=== PATIENT | female | born 2000 | race Caucasian/White ===

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

== ENCOUNTER → 2018-02-09 10:22 | Outpatient (CLI) | payer BC, SELFPAY ==
[2018-02-10 18:39] LABS: HIV Screen 4th Generation wRfx Non Reactive (Non Reactive); Hepatitis C Antibody <0.1 s/co ratio (0.0-0.9); Rapid Plasma Reagin Ab Titer Non Reactive (NonRea<1:1)
== END ==
PROVIDERS: PCP Family Medicine; Visit Provider Obstetrics & Gynecology
DX: Z11.3 Encounter for screening for infections with a predominantly sexual mode of transmission (principal)
CPT/HCPCS: 36415; 86592; 86703; 87380; G0432

== ENCOUNTER → 2019-09-04 16:09 | Outpatient (CLI) | payer BC, SELFPAY ==
[2019-09-06 13:40] LABS: Covid-19 Nasal PCR Sendout Lex NOT DETECTED
== END ==
PROVIDERS: Visit Provider Family Medicine
DX: Z03.818 Encounter for observation for suspected exposure to other biological agents ruled out (principal)
CPT/HCPCS: U0004

== ENCOUNTER → 2019-09-26 13:44 | Outpatient (CLI) | payer BC, SELFPAY | PROVIDERS: PCP Family Medicine; Visit Provider Nurse Practitioner | DX: G47.33 Obstructive sleep apnea (adult) (pediatric) (principal); R40.0 Somnolence; R06.83 Snoring; E66.9 Obesity, unspecified | CPT/HCPCS: G0399 ==

== ENCOUNTER → 2019-11-21 17:31 | Outpatient (CLI) | payer BC, SELFPAY ==
[2019-11-26 15:20] LABS: Neisseria gonorrhoeae, NAA Negative (Negative)
== END ==
PROVIDERS: Visit Provider Obstetrics & Gynecology
DX: N89.8 Other specified noninflammatory disorders of vagina (principal); N76.0 Acute vaginitis; B96.89 Other specified bacterial agents as the cause of diseases classified elsewhere; Z11.3 Encounter for screening for infections with a predominantly sexual mode of transmission
CPT/HCPCS: 87491; 87591

== ENCOUNTER 2021-04-08 14:52 | Outpatient (RCR) | payer BC, SELFPAY | END 2021-04-08 14:55 | disposition home or self-care (01) | LOC: PT 14:52 | PROVIDERS: Visit Provider Internal Medicine Cardiovascular Disease | DX: I21.4 Non-ST elevation (NSTEMI) myocardial infarction (principal) | CPT/HCPCS: 93798 ==

== ENCOUNTER 2021-12-12 20:19 | Emergency (ER) | payer BC, SELFPAY ==
[2021-12-12 20:20] VITALS: BP 121/68; PULSE 76; RESP 18; TEMP 36.9; O2SAT 99; BMI 64.1
--- NOTE | 2021-12-12 21:47 | XR_ITS ---
PROCEDURE INFORMATION: Exam: XR Chest Exam date and time: 12/12/2021 9:47 PM Age: 21 years old Clinical indication: Cough; Additional info: Congestion TECHNIQUE: Imaging protocol: Radiologic exam of the chest. Views: 2 views. COMPARISON: No relevant prior studies available. FINDINGS: Lungs: No consolidation. Pleural spaces: No pneumothorax. Heart/Mediastinum: Heart appears enlarged with upturned apex. Bones/joints: No acute fracture. IMPRESSION: Heart appears enlarged with upturned apex which may be projectional however can be seen with congenital cardiac anomalies. Cardiology consultation may be warranted for further evaluation.
[2021-12-12 21:50] LABS: Coronavirus 19, PCR Not Detected (NotDetected); Influenza A, PCR Not Detected (NotDetected); Influenza B, PCR Not Detected (NotDetected)
--- NOTE | 2021-12-12 22:42 | HMH.EDURI ---
Discharge Plan Disposition Patient Disposition: Home, Self-Care Prescriptions Prescriptions: New azithromycin [azithromycin] 250 mg tablet 250 mg PO DIRECTED Qty: 6 0RF Rx Instructions: Take two (2) tablets on day #1, then one (1) tablet day #2 thru #5 prednisone [prednisone] 20 mg tablet 20 mg PO BID Qty: 10 0RF No Action escitalopram oxalate 20 mg tablet 20 mg PO DAILY metoprolol tartrate 100 mg tablet 100 mg PO DAILY Label Comments: TAKE 1 & 1 2 (ONE & ONE HALF) TABLETS BY MOUTH TWICE DAILY losartan 50 mg tablet 50 mg PO DAILY flecainide 150 mg tablet 150 mg PO Q12H Rexulti 0.5 mg tablet 0.5 mg PO DAILY furosemide [Lasix] 40 mg tablet 40 mg PO DAILY PRN medroxyprogesterone [Depo-Provera] 150 mg/mL suspension 150 mg IM [id number] Qty: 1 4RF Referrals Follow up/Referrals: Faith Reed APRN [Primary Care Provider] - See instructions Clinical Impressions Clinical Impression: Transposition of great vessels, Bronchitis Instructions Patient Instructions: DI for Acute Bronchitis Discharge ED Provider: Marshal Ornelas URI/Sore Throat HPI General Chief Complaint: Upper Respiratory Infection Stated Complaint: cough,bernabe, RUSHING Time Seen by Provider: 12/12/21 22:42 Mode of Arrival: Ambulatory Source of Information: Patient and Medical Record Limitations: No Limitations Description of Symptoms (Recalled from ER Triage Doc. by RN): pt c/o cough,congestion x 1 week History of Present Illness HPI Narrative: uri sx and cough over the last week - has hx of transposition of great vessels Complaint: cough and nasal congestion Onset (ago): day(s) Duration: intermittent Severity: moderate Associated symptoms: denies other symptoms Related Data Home Medications Medication Instructions Recorded Confirmed escitalopram oxalate 20 mg tablet 20 mg PO DAILY 11/21/19 08/12/21 brexpiprazole 0.5 mg tablet 0.5 mg PO DAILY 08/12/21 08/12/21 (Rexulti) flecainide 150 mg tablet 150 mg PO Q12H 08/12/21 08/12/21 furosemide 40 mg tablet (Lasix) 40 mg PO DAILY PRN 08/12/21 08/12/21 losartan 50 mg tablet 50 mg PO DAILY 08/12/21 08/12/21 metoprolol tartrate 100 mg tablet 100 mg PO DAILY 08/12/21 08/12/21 Previous Rx's Medication Instructions Recorded medroxyprogesterone 150 mg/mL 150 mg IM [id number] #1 mL 08/12/21 intramuscular suspension (Depo-Provera) azithromycin 250 mg tablet 250 mg PO DIRECTED #6 tabs 12/12/21 prednisone 20 mg tablet 20 mg PO BID #10 tabs 12/12/21 Allergies Allergy/AdvReac Type Severity Reaction Status Date / Time lisinopril Allergy Mild Cough Verified 08/12/21 13:44 methocarbamol [From Robaxin] Allergy Verified 08/12/21 13:44 Cefprozil Allergy Mild Rash Uncoded 08/12/21 13:44 Cephalosporin Allergy Unknown Uncoded 08/12/21 13:44 PFSH PFSH Social History Smoking Status: Never smoker alcohol intake: never substance use type: denies use current occupational status: unemployed Travel in the last 8 weeks: None housing: house caffeine: No ROS Obtained: Yes All systems reviewed & no additional complaints except as documented Physical Exam General General appearance: alert and obese Head Head exam: normocephalic Eye Eye exam: Present PERRL and EOMI ENT ENT exam: Present normal oropharynx, mucous membranes moist and TM's normal bilaterally Neck Neck exam: Present full ROM; Absent trachea midline Respiratory Respiratory exam: Present normal lung sounds bilaterally; Absent respiratory distress Cardiovascular Cardiovascular exam: Present regular rate and systolic murmur Abdominal Exam Abdominal exam: Present soft Extremities Exam Extremities exam: Absent edema or calf tenderness Neurological Exam Neurological exam: Present alert and CN II-XII intact Psychiatric Psychiatric exam: Present normal affect Skin Skin exam: Absent rash Medical Decision Making Medical Records Medical r
[2021-12-12 22:58] VITALS: BP 115/74; PULSE 71; RESP 18; TEMP 36.9; O2SAT 99
== END 2021-12-12 23:01 | disposition home or self-care (01) ==
PROVIDERS: Emergency Provider Emergency Medicine; PCP Nurse Practitioner Family
DX: J06.9 Acute upper respiratory infection, unspecified (principal); R05.9 Cough, unspecified; R09.81 Nasal congestion; R51.9 Headache, unspecified; Z20.822 Contact with and (suspected) exposure to COVID-19; Z79.52 Long term (current) use of systemic steroids; Z79.899 Other long term (current) drug therapy; Z88.8 Allergy status to other drugs, medicaments and biological substances
CPT/HCPCS: 71046; 99283; C9803; U0003; U0005

== ENCOUNTER 2022-01-04 09:28 | Emergency (ER) | payer BC, SELFPAY ==
[2022-01-04 10:05] VITALS: BP 149/89; PULSE 78; RESP 19; TEMP 36.7; O2SAT 98; BMI 64.1
--- NOTE | 2022-01-04 10:32 | EXP.UTC ---
Discharge Plan Disposition Patient Disposition: Home, Self-Care Condition: Good Prescriptions Prescriptions: New doxycycline hyclate 100 mg capsule 100 mg PO DAILY Qty: 10 0RF prednisone 10 mg tablet 10 mg PO BID Qty: 10 0RF guaifenesin [Mucinex] 600 mg tablet extended release 12hr 600 mg PO BID PRN (Reason: cough) Qty: 20 0RF No Action escitalopram oxalate 20 mg tablet 20 mg PO DAILY metoprolol tartrate 100 mg tablet 100 mg PO DAILY Label Comments: TAKE 1 & 1 2 (ONE & ONE HALF) TABLETS BY MOUTH TWICE DAILY losartan 50 mg tablet 50 mg PO DAILY flecainide 150 mg tablet 150 mg PO Q12H Rexulti 0.5 mg tablet 0.5 mg PO DAILY furosemide [Lasix] 40 mg tablet 40 mg PO DAILY PRN medroxyprogesterone [Depo-Provera] 150 mg/mL suspension 150 mg IM [id number] Qty: 1 4RF azithromycin [azithromycin] 250 mg tablet 250 mg PO DIRECTED Qty: 6 0RF Rx Instructions: Take two (2) tablets on day #1, then one (1) tablet day #2 thru #5 prednisone [prednisone] 20 mg tablet 20 mg PO BID Qty: 10 0RF Referrals Follow up/Referrals: Cheyanne Whitmore MD [Primary Care Provider] - See instructions Activity Restrictions/Add. Instructions Additional Instructions/Restrictions: Start antibiotic today. Be sure to complete entire prescription even if feeling better Monitor temp. Tylenol every 4 hours as needed and / or ibuprofen every 6 hours as needed ( As long as your primary care physician has told you that it ok to take both. For fever/aches/pains ER if no less than 101 despite Tylenol or Motrin Humidifier/vaporizer or hot steamy shower Mucinex for your cough Be sure to drink lots of water. *Start steroid today. Helps with inflammation therefore, cough and wheezing. Follow directions on the package. Reviewed side effects. Patient reports taking them before. Follow up IMMEDIATELY for new or worsening of symptoms OR no noticeable improvement over the next 48-72 hours. 911 immediately for any life threatening symptoms such as chest pain or difficulty breathing Clinical Impressions Clinical Impression: Bronchitis, Sinusitis Instructions Patient Instructions: DI for Sinusitis, Sinusitis Discharge ED Provider: Kourtney Gregorio [facility] [place] General Stated complaint: Persistant congestion, cough, sore throat Mode of Arrival: Ambulatory Source of Information: Patient Limitations: No Limitations Time Seen by Provider: 01/04/22 10:32 Description of Symptoms (Recalled from Triage Doc. by RN): PATIENT C/O COUGH, CONGESTION, SINUS DRAINAGE, SORE THROAT X 1 WEEK. SHE REPORTS SHE WAS SEEN BY PCP LAST WEEK AND JUST FINISHED A STEROID PACK BUT IS NOT FEELING BETTER HEENT Symptoms (Recalled from RN notes): Yes Resp Symptoms (Recalled from RN notes): Yes Skin Symptoms (Recalled from RN notes): No MS Symptoms (Recalled from RN notes): No Functional Status (Recalled from RN notes): WNL History of Present Illness Provider Complaint: Patient states that she was seen a couple weeks ago and finished zpack and steriods but still not feeling any better States that she is having sinus pain and pressure, sore throat and chest congestion States today when she was still not feeling any better she came in to get checked out Related Data Home Medications Medication Instructions Recorded Confirmed escitalopram oxalate 20 mg tablet 20 mg PO DAILY 11/21/19 08/12/21 brexpiprazole 0.5 mg tablet 0.5 mg PO DAILY 08/12/21 08/12/21 (Rexulti) flecainide 150 mg tablet 150 mg PO Q12H 08/12/21 08/12/21 furosemide 40 mg tablet (Lasix) 40 mg PO DAILY PRN 08/12/21 08/12/21 losartan 50 mg tablet 50 mg PO DAILY 08/12/21 08/12/21 metoprolol tartrate 100 mg tablet 100 mg PO DAILY 08/12/21 08/12/21 Previous Rx's Medication Instructions Recorded medroxyprogesterone 150 mg/mL 150 mg IM [id number] #1 mL 08/12/21 intramuscular suspension ([employer]
[2022-01-04 10:40] VITALS: BP 149/89; PULSE 78; RESP 19; TEMP 36.7; O2SAT 98
== END 2022-01-04 10:45 | disposition home or self-care (01) ==
PROVIDERS: Emergency Provider Nurse Practitioner; PCP Family Medicine
DX: J02.9 Acute pharyngitis, unspecified (principal); R05.9 Cough, unspecified; I25.2 Old myocardial infarction; E07.9 Disorder of thyroid, unspecified; G43.909 Migraine, unspecified, not intractable, without status migrainosus; Z79.52 Long term (current) use of systemic steroids; Z79.899 Other long term (current) drug therapy; Z88.8 Allergy status to other drugs, medicaments and biological substances
CPT/HCPCS: 99212; G0463

== ENCOUNTER 2022-02-06 11:18 | Emergency (ER) | payer BC, SELFPAY ==
[2022-02-06 12:50] VITALS: BP 144/76; PULSE 77; RESP 19; TEMP 36.9; O2SAT 98; BMI 65.5
[2022-02-06 13:03] LABS: Coronavirus 19, PCR Not Detected (NotDetected); Influenza B, PCR Not Detected (NotDetected)
--- NOTE | 2022-02-06 13:06 | EXP.UTC ---
Discharge Plan Disposition Patient Disposition: Home, Self-Care Condition: Good Prescriptions Prescriptions: New prednisone [prednisone] 20 mg tablet 20 mg PO BID Qty: 10 0RF No Action escitalopram oxalate 20 mg tablet 20 mg PO DAILY metoprolol tartrate 100 mg tablet 100 mg PO DAILY Label Comments: TAKE 1 & 1 2 (ONE & ONE HALF) TABLETS BY MOUTH TWICE DAILY losartan 50 mg tablet 50 mg PO DAILY flecainide 150 mg tablet 150 mg PO Q12H Rexulti 0.5 mg tablet 0.5 mg PO DAILY furosemide [Lasix] 40 mg tablet 40 mg PO DAILY PRN medroxyprogesterone [Depo-Provera] 150 mg/mL suspension 150 mg IM [id number] Qty: 1 4RF doxycycline hyclate 100 mg capsule 100 mg PO DAILY Qty: 10 0RF prednisone 10 mg tablet 10 mg PO BID Qty: 10 0RF guaifenesin [Mucinex] 600 mg tablet extended release 12hr 600 mg PO BID PRN (Reason: cough) Qty: 20 0RF azithromycin [azithromycin] 250 mg tablet 250 mg PO DIRECTED Qty: 6 0RF Rx Instructions: Take two (2) tablets on day #1, then one (1) tablet day #2 thru #5 prednisone [prednisone] 20 mg tablet 20 mg PO BID Qty: 10 0RF Referrals Follow up/Referrals: Eladia Falk [Primary Care Provider] - See instructions Activity Restrictions/Add. Instructions Additional Instructions/Restrictions: covid/flu swab was sent to lab, call tomorrow for results. self isolate until test results are known to be negative No sign of a bacterial infection. Likely viral. Viruses can take 7-14 days to run their course. Nasal saline and bulb syringe or nose Elis to remove nasal drainage to help with nasal congestion. Hard to eat, drink, sleep with nasal congestion so important to keep this cleaned out. Monitor temp. Tylenol or Motrin as needed for pain or fever Encourage fluids, water, Gatorade, Powerade, Pedialyte if /toddler/child Warm salt water gargles Warm fluids Sore throat lozenges Sleep elevated Humidifier/vaporizer Follow-up immediately for new or worsening symptoms or no noticeable improvement over the next 48-72 hours. Clinical Impressions Clinical Impression: Bronchitis, Close exposure to COVID-19 virus Instructions Patient Instructions: DI for COVID-19 (Suspected or Confirmed ), Acute Bronchitis Discharge ED Provider: Blanca ([facility])[place] [facility] [place] General Stated complaint: Fever, cough, congestion, headache, SOA Time Seen by Provider: 02/06/22 13:06 HEENT Symptoms (Recalled from RN notes): Yes Resp Symptoms (Recalled from RN notes): Yes History of Present Illness Provider Complaint: 21 yr old female presents for soa,wheezing, clear congestion and sore throat. step father had covid 2 weeks ago Related Data Home Medications Medication Instructions Recorded Confirmed escitalopram oxalate 20 mg tablet 20 mg PO DAILY 11/21/19 08/12/21 brexpiprazole 0.5 mg tablet 0.5 mg PO DAILY 08/12/21 08/12/21 (Rexulti) flecainide 150 mg tablet 150 mg PO Q12H 08/12/21 08/12/21 furosemide 40 mg tablet (Lasix) 40 mg PO DAILY PRN 08/12/21 08/12/21 losartan 50 mg tablet 50 mg PO DAILY 08/12/21 08/12/21 metoprolol tartrate 100 mg tablet 100 mg PO DAILY 08/12/21 08/12/21 Previous Rx's Medication Instructions Recorded medroxyprogesterone 150 mg/mL 150 mg IM [id number] #1 mL 08/12/21 intramuscular suspension (Depo-Provera) azithromycin 250 mg tablet 250 mg PO DIRECTED #6 tabs 12/12/21 prednisone 20 mg tablet 20 mg PO BID #10 tabs 12/12/21 doxycycline hyclate 100 mg capsule 100 mg PO DAILY #10 caps 01/04/22 guaifenesin 600 mg tablet, 600 mg PO BID PRN cough #20 tabs 01/04/22 extended release 12 hr (Mucinex) prednisone 10 mg tablet 10 mg PO BID #10 tabs 01/04/22 prednisone 20 mg tablet 20 mg PO BID #10 tabs 02/06/22 Allergies Allergy/AdvReac Type Severity Reaction Status Date / Time lisinopril Allergy Mild Cough Verified 08/12/21 13:44 cefprozil [From Cefzil] Allergy Verified 01/04/22 10:30 [facility]
[2022-02-06 13:24] VITALS: BP 144/76; PULSE 77; RESP 19; TEMP 36.9; O2SAT 98
[2022-02-06 14:45] LABS: Influenza A, PCR Detected (NotDetected)
== END 2022-02-06 13:28 | disposition home or self-care (01) ==
PROVIDERS: Emergency Provider Nurse Practitioner Family; PCP Family Medicine Sports Medicine
DX: J10.1 Influenza due to other identified influenza virus with other respiratory manifestations (principal)
CPT/HCPCS: 99212; C9803; G0463; U0003; U0005

== ENCOUNTER 2022-06-16 03:05 | Emergency (ER) | payer BC, SELFPAY ==
[2022-06-16] VITALS (10 sets, daily range): BP systolic 132–150; BP diastolic 55–98; PULSE 74–102; RESP 14–20; TEMP 36.9–37; O2SAT 95–98; BMI 66.2
--- NOTE | 2022-06-16 02:51 | ECG_ITS ---
APPROVED REPORT Exam: Resting ECG HR:100 bpm ECG Measurements Heart Rate 100 AXES CA 124 P 66 QRSd 134 QRS 39 QT 379 T 149 QTc 436 Conclusion SINUS TACHYCARDIA VENTRICULAR PREEXCITATION / WPW CRITICAL TEST RESULT UNCONFIRMED REPORT Electronically signed by : Stephen Castillo MD 06/17/2022 14:22:58
--- NOTE | 2022-06-16 03:19 | XR_ITS ---
PROCEDURE INFORMATION: Exam: XR Chest Exam date and time: 06/16/2022 3:21 AM Age: 21 years old Clinical indication: Shortness of breath; Additional info: SOA, heart arrhythmia TECHNIQUE: Imaging protocol: Radiologic exam of the chest. Views: 2 views. COMPARISON: CR XR CHEST 2V 12/12/2021 9:47 PM FINDINGS: Limitations: Radiographic technique - mild. Tubes, catheters and devices: Leads overlying chest. Lungs: Increased density within posterior lower lobes on lateral view. Pleural spaces: No definite pleural effusion. No pneumothorax. Heart/Mediastinum: Moderate cardiomegaly, stable in configuration. Bones/joints: No displaced fracture. Soft tissues: Unremarkable. IMPRESSION: 1. Cardiomegaly. 2. Increased density within posterior lower lobes on lateral view. Underlying pneumonia not excluded.
[2022-06-16 03:36] LABS: Alanine Aminotransferase 34 U/L (12-78); Alkaline Phosphatase 97 U/L (38-126); Anion Gap 12.2 mEq/L (5-15); Aspartate Amino Transferase 48 U/L (14-36); Basophils % 0.3 % (0.1-2.0); Bilirubin,Total 0.6 mg/dl (0.2-1.3); Blood Urea Nitrogen 12 mg/dl (7-17); Carbon Dioxide 25 mmol/L (22.0-30.0); Chloride 109 mmol/L (98-107); Creatinine Clearance Estimated 98 mL/min (50-200); Eosinophils # 0.4 K/mm3 (0.0-0.4); Eosinophils % 3.6 % (0.1-12.0); Estimated Glomerular Filt Rate 69 ml/min (>60); GFR (African American) 83 ML/MIN (>60); Globulin 4.1 g/dL (1.3-3.2); Glucose 138 mg/dl (74-100); Hematocrit 48.1 % (37.0-47.0); Hemoglobin 15.4 g/dL (12.2-16.2); Lymphocytes # 2.3 K/mm3 (0.7-4.5); Magnesium 1.6 mg/dl (1.6-2.3); Mean Corpuscular Hemoglobin 28.8 pg (27.0-31.2); Mean Corpuscular Volume 89.8 fl (81-99); Mean Platelet Volume 8.3 fl (7.4-10.4); Monocytes # 0.7 K/mm3 (0.1-1.0); Monocytes % 6.9 % (1.7-9.3); Neutrophils # 6.7 K/mm3 (1.8-7.8); Neutrophils % 66.2 % (37.0-80.0); Platelet Count 258 K/mm3 (142-424); Potassium 4.2 mmoL/L (3.5-5.1); Red Blood Count 5.36 M/mm3 (4.20-5.40); Red Cell Distribution Width 13.9 % (11.5-17.5); Sodium 142 mmol/L (136-145); Total Protein,Serum 8.1 g/dl (6.3-8.2); White Blood Count 10.1 K/mm3 (4.8-10.8)
[2022-06-16 03:39] LABS: Lactic Acid 1.8 mmol/L (0.7-2.1)
[2022-06-16 03:43] LABS: HCG Qualitative, Serum Negative (Negative)
[2022-06-16 03:44] LABS: Coronavirus 19, PCR Not Detected (NotDetected); Influenza A, PCR Not Detected (NotDetected); Influenza B, PCR Not Detected (NotDetected)
[2022-06-16 03:45] LABS: C-Reactive Protein 20.5 mg/L (0-4)
[2022-06-16 03:48] LABS: Microscopic, Urine URINE MICROSCOPIC (MICROSCOPIC)
[2022-06-16 03:49] LABS: Appearance,Urine CLEAR (Clear); Bilirubin,Urine Negative (Negative); Blood, Urine 1+ (Negative); Color,Urine YELLOW (Yellow); Glucose,Urine (UA) Negative (Negative); Ketones,Urine Negative (Negative); Leukocyte Esterase,Urine Negative (Negative); Nitrate,Urine Negative (Negative); Protein,Urine 2+ (Negative); Specific Gravity, Urine >= 1.030 (1.005-1.030); Urobilinogen,Urine 0.2 EU/dl (0.2)
[2022-06-16 03:54] LABS: Troponin I 0.02 ng/ml (0.00-0.034)
[2022-06-16 03:59] LABS: Procalcitonin 0.047 ng/mL (0.0-2.0)
[2022-06-16 04:10] LABS: Erythrocyte Sedimentation Rate 33 mm/hr (0-20)
[2022-06-16 04:58] LABS: Bacteria,Urine 1+ /lpf; Mucus,Urine 1+ /lpf
[2022-06-16 05:14] LABS: T4 (Thyroxine) 8.7 ug/dl (5.53-11.0)
[2022-06-16 05:28] LABS: Thyroid Stimulating Hormone 5.31 uIU/mL (0.465-4.68)
--- NOTE | 2022-06-16 06:01 | ECG_ITS ---
APPROVED REPORT Exam: Resting ECG HR:81 bpm ECG Measurements Heart Rate 81 AXES OR 132 P 119 QRSd 130 QRS 54 QT 405 T 146 QTc 442 Conclusion SINUS RHYTHM MODERATE INTRAVENTRICULAR CONDUCTION DELAY [110+ ms QRS DURATION] ST DEVIATION AND MODERATE T-WAVE ABNORMALITY, CONSIDER ANTEROLATERAL ISCHEMIA [-0.1+ mV T-WAVE IN V3-V6] ABNORMAL ECG UNCONFIRMED REPORT Electronically signed by : Stephen Castillo MD 06/20/2022 19:45:54
[2022-06-16 06:08] LABS: Troponin I 0.07 ng/ml (0.00-0.034)
--- NOTE | 2022-06-16 06:48 | HMH.EDARPALP ---
Discharge Plan Disposition Patient Disposition: Home, Self-Care Chief Complaint: Arrhythmia/Palpitations Prescriptions Prescriptions: No Action flecainide 150 mg tablet 150 mg PO Q12H metoprolol succinate 200 mg tablet extended release 24 hr 200 mg PO DAILY Label Comments: pt tkes @ 1200 daily Rx Instructions: TAKE 1 TABLET BY MOUTH ONCE DAILY, DO NOT CRUSH OR CHEW Rexulti 1 mg tablet 1 mg PO DAILY Label Comments: TAKE 1 TABLET BY MOUTH ONCE DAILY, APT DUE IN JUNE, CALL AND SCHEDULE cetirizine 10 mg Tablet 10 mg PO DAILY PRN (Reason: Allergy Symptoms) albuterol sulfate 90 mcg/actuation HFA aerosol inhaler 2 puff INHALATION Q4-6H PRN (Reason: SOA, wheezing) Label Comments: INHALE 1 PUFF BY MOUTH EVERY 4 HOURS NEEDED FOR 10 DAYS Referrals Follow up/Referrals: Eladia Falk [Primary Care Provider] - See instructions Clinical Impressions Clinical Impression: Palpitations, Situs inversus Instructions Patient Instructions: DI for Palpitations Discharge ED Provider: Johnson (ED)Marshal Arrhythmia/Palpitations HPI General Chief Complaint: Arrhythmia/Palpitations Stated Complaint: Arrhythmia Time Seen by Provider: 06/16/22 05:15 Mode of Arrival: EMS Source of Information: Patient, Relative, EMS and Medical Record Limitations: No Limitations History of Present Illness HPI narrative: pt with known congenital ht dis - pt is followed by - pt had episode of fast hr tonight which lasted about 30 min - pt reports has been compliant with meds - no illness and has returned to baseline - MD complaint: heart racing Onset (ago): hour(s) Duration: intermittent Severity: moderate Context: occurred during rest Associated symptoms: shortness of breath Treatments prior to arrival: vagal maneuvers, beta-fabi and other (see list ) Related Data Home Medications Medication Instructions Recorded Confirmed flecainide 150 mg tablet 150 mg PO Q12H antiarrhythmic 08/12/21 06/16/22 albuterol sulfate 90 mcg/actuation 2 puff inhalation Q4-6H PRN SOA, 06/16/22 06/16/22 aerosol inhaler wheezing brexpiprazole 1 mg tablet (Rexulti) 1 mg PO DAILY anxiety/depression 06/16/22 06/16/22 cetirizine 10 mg tablet 10 mg PO DAILY PRN Allergy Symptoms 06/16/22 06/16/22 metoprolol succinate 200 mg 200 mg PO DAILY heart arrhythmia 06/16/22 06/16/22 tablet,extended release 24 hr Allergies Allergy/AdvReac Type Severity Reaction Status Date / Time lisinopril Allergy Mild Cough Verified 08/12/21 13:44 cefprozil [From Cefzil] Allergy Verified 01/04/22 10:30 Cephalosporins Allergy Verified 01/04/22 10:30 esmolol Allergy Verified 06/16/22 04:11 methocarbamol [From Robaxin] Allergy Verified 08/12/21 13:44 PFSH [facility] Disclaimer: The information contained in this section may have been updated after the patient was seen, as this information can be updated by other users. Medical History , [employer]) Fracture of right lower leg History of heart attack Migraine Thyroid disease Urinary tract infection Surgical History , [employer]) History of cardiac catheterization History of cardiac radiofrequency ablation History of open heart surgery Social History , [employer]) Smoking Status: Never smoker alcohol intake: never substance use type: denies use current occupational status: unemployed Travel in the last 8 weeks: None housing: house caffeine: No ROS Obtained: Yes All systems reviewed & no additional complaints except as documented Physical Exam General General appearance: alert and obese Head Head exam: normocephalic Eye Eye exam: Present PERRL and EOMI ENT ENT exam: Present mucous membranes moist Neck Neck exam: Present trachea midline Respiratory Respiratory exam: Present other (dec bs bilat ); Absen
--- NOTE | 2022-06-16 07:06 | PC.NURSE ---
Dr. Ornelas at BS for update on POC
--- NOTE | 2022-06-16 07:09 | PC.NURSE ---
Dr. Ornelas would like to s/w whom is on-call for pt's Classroom Assistant, Dr. Jevon Cosme. Call placed to Cardiology s/w clerk Wright and then Ileana, who is awaiting for the on-call MD.
--- NOTE | 2022-06-16 07:25 | PC.NURSE ---
Dr. Ornelas s/w Dr. Marco Baca with Cardiology
--- NOTE | 2022-06-16 07:25 | PC.NURSE ---
Assumed pt care.
--- NOTE | 2022-06-16 07:26 | PC.NURSE ---
Report given to Racheal Stewart RN
--- NOTE | 2022-06-16 07:41 | PC.NURSE ---
Family at BS
--- NOTE | 2022-06-16 07:43 | PC.NURSE ---
Dr. Ornelas at BS to update patient on POC
--- NOTE | 2022-06-16 07:52 | PC.NURSE ---
DC VS @ 07:52. 135/98, 86 HR, 17 R, 96% RA, 98.2 T. Discharge instructions provided and discussed without further questions. Pt ambulated out of ED with mother. No distress noted.
== END 2022-06-16 07:53 | disposition home or self-care (01) ==
PROVIDERS: Emergency Provider Emergency Medicine; PCP Family Medicine Sports Medicine
DX: R00.2 Palpitations (principal); R06.02 Shortness of breath
CPT/HCPCS: 71046; 80053; 81001; 83605; 83735; 84145; 84436; 84443; 84484; 84703; 85025; 85651; 86140; 93005; 99285; C9803; U0003; U0005

== ENCOUNTER 2022-09-05 12:02 | Emergency (ER) | payer BC, SELFPAY ==
[2022-09-05] VITALS (7 sets, daily range): BP systolic 123–140; BP diastolic 62–79; PULSE 76–99; RESP 16–20; TEMP 36.5–36.6; O2SAT 93–99; BMI 63.7
--- NOTE | 2022-09-05 12:15 | EXP.UTC ---
Discharge Plan Disposition Patient Disposition: Home, Self-Care Prescriptions Prescriptions: No Action flecainide 150 mg tablet 150 mg PO Q12H metoprolol succinate 200 mg tablet extended release 24 hr 200 mg PO DAILY Patient Comments: pt tkes @ 1200 daily Rx Instructions: TAKE 1 TABLET BY MOUTH ONCE DAILY, DO NOT CRUSH OR CHEW Rexulti 1 mg tablet 1 mg PO DAILY Patient Comments: TAKE 1 TABLET BY MOUTH ONCE DAILY, APT DUE IN JUNE, CALL AND SCHEDULE cetirizine 10 mg Tablet 10 mg PO DAILY PRN (Reason: Allergy Symptoms) albuterol sulfate 90 mcg/actuation HFA aerosol inhaler 2 puff INHALATION Q4-6H PRN (Reason: SOA, wheezing) Patient Comments: INHALE 1 PUFF BY MOUTH EVERY 4 HOURS NEEDED FOR 10 DAYS Referrals Follow up/Referrals: Cheyanne Whitmore MD [Primary Care Provider] - See instructions Activity Restrictions/Add. Instructions Additional Instructions/Restrictions: Return the emergency department for headache vomiting or any other concerns within the next 8 hours Clinical Impressions Clinical Impression: Head injury Instructions Patient Instructions: Closed Head Injury Discharge ED Provider: Claude Marina [facility] General Chief complaint: Headache Stated complaint: AO fall 09/03, h/a, dizzy, blurry vision, vomiting Time Seen by Provider: 09/05/22 12:15 History of Present Illness Provider Complaint: She states that she fell 2 days ago and hit her head on a metal electrical cabinet. Since then she has had head pain, intermittent dizziness, nausea and she has vomited this am. Related Data Home Medications Medication Instructions Recorded Confirmed flecainide 150 mg tablet 150 mg PO Q12H antiarrhythmic 08/12/21 06/16/22 albuterol sulfate 90 mcg/actuation 2 puff inhalation Q4-6H PRN SOA, 06/16/22 06/16/22 aerosol inhaler wheezing brexpiprazole 1 mg tablet (Rexulti) 1 mg PO DAILY anxiety/depression 06/16/22 06/16/22 cetirizine 10 mg tablet 10 mg PO DAILY PRN Allergy Symptoms 06/16/22 06/16/22 metoprolol succinate 200 mg 200 mg PO DAILY heart arrhythmia 06/16/22 06/16/22 tablet,extended release 24 hr Allergies Allergy/AdvReac Type Severity Reaction Status Date / Time lisinopril Allergy Mild Cough Verified 08/12/21 13:44 cefprozil [From Cefzil] Allergy Verified 01/04/22 10:30 Cephalosporins Allergy Verified 01/04/22 10:30 esmolol Allergy Verified 06/16/22 04:11 methocarbamol [From Robaxin] Allergy Verified 08/12/21 13:44 [facility] Disclaimer: The information contained in this section may have been updated after the patient was seen, as this information can be updated by other users. Medical History Fracture of right lower leg History of heart attack Migraine Thyroid disease Urinary tract infection Surgical History History of cardiac catheterization History of cardiac radiofrequency ablation History of open heart surgery Family History Other No significant family history Social History Smoking Status: Never smoker alcohol intake: never substance use type: denies use current occupational status: unemployed Travel in the last 8 weeks: None housing: house caffeine: No ROS Obtained: Yes All systems reviewed & no additional complaints except as documented Constitutional Constitutional: Denies chills, Denies fever(s) and Reports headache(s) Eyes Eyes: Denies eye discharge ENT Ears, Nose, Mouth, and Throat: Reports dizziness, Denies otalgia, Reports headache(s) and Denies sore throat Cardiovascular Cardiovascular: Denies chest pain Respiratory Respiratory: Denies shortness of breath, Denies chest congestion, Denies cough, Denies stridor and Denies wheezing Gastrointestinal Gastrointestingal: Denies nausea or v
--- NOTE | 2022-09-05 12:41 | PC.NURSE ---
DR HARRELL AT BEDSIDE
--- NOTE | 2022-09-05 12:42 | CT_ITS ---
FINAL REPORT CLINICAL HISTORY: head injury- fell and hit head FINDINGS: Axial images of the head were obtained without contrast. Coronal reformatted images were also obtained.This study was performed with techniques to keep radiation doses as low as reasonably achievable (ALARA). Individualized dose reduction techniques using automated exposure control or adjustment of mA and/or kV according to the patient''s size were employed. There is significant artifact secondary to patient body habitus which limits exam sensitivity. There is no evidence of intracranial hemorrhage or mass. The ventricular size is within normal limits. There is no evidence of shift of the midline structures. No abnormal extra axial fluid collection is identified. No skull abnormality is seen on the bone window images. IMPRESSION: No acute intracranial abnormality. Reviewed, Interpreted and Dictated by Marco Kidd III, MD Transcribed by Ashley Snyder Authenticated and . [facility]
--- NOTE | 2022-09-05 12:42 | CT_ITS ---
FINAL REPORT CLINICAL HISTORY: neck injury- fall FINDINGS: Axial CT images of the cervical spine were obtained without contrast. Sagittal and coronal reformatted images were also obtained. This study was performed with techniques to keep radiation doses as low as reasonably achievable (ALARA). Individualized dose reduction techniques using automated exposure control or adjustment of mA and/or kV according to the patient''s size were employed. There is significant artifact secondary to patient body habitus which limits exam sensitivity. There is no evidence of fracture or dislocation. The bony alignment is normal. The disc spaces are preserved. There is no evidence of canal stenosis. No paraspinous soft tissue abnormality is seen. Limited images of the upper thorax are unremarkable. IMPRESSION: No fracture or acute bony abnormality identified. Reviewed, Interpreted and Dictated by Marco Kidd III, MD Transcribed by Ashley Snyder Authenticated and [facility]
--- NOTE | 2022-09-05 13:02 | PC.NURSE ---
notified rad staff of ct orders
[2022-09-05 13:30] LABS: Urine Pregnancy, HCG Qual. Negative (Negative)
--- NOTE | 2022-09-05 13:36 | PC.NURSE ---
PT TO CT
--- NOTE | 2022-09-05 14:49 | HMH.EDGENADL ---
Discharge Plan Disposition Patient Disposition: Home, Self-Care Prescriptions Prescriptions: No Action flecainide 150 mg tablet 150 mg PO Q12H metoprolol succinate 200 mg tablet extended release 24 hr 200 mg PO DAILY Patient Comments: pt tkes @ 1200 daily Rx Instructions: TAKE 1 TABLET BY MOUTH ONCE DAILY, DO NOT CRUSH OR CHEW Rexulti 1 mg tablet 1 mg PO DAILY Patient Comments: TAKE 1 TABLET BY MOUTH ONCE DAILY, APT DUE IN JUNE, CALL AND SCHEDULE cetirizine 10 mg Tablet 10 mg PO DAILY PRN (Reason: Allergy Symptoms) albuterol sulfate 90 mcg/actuation HFA aerosol inhaler 2 puff INHALATION Q4-6H PRN (Reason: SOA, wheezing) Patient Comments: INHALE 1 PUFF BY MOUTH EVERY 4 HOURS NEEDED FOR 10 DAYS Referrals Follow up/Referrals: Cheyanne Whitmore MD [Primary Care Provider] - See instructions Activity Restrictions/Add. Instructions Additional Instructions/Restrictions: Return the emergency department for headache vomiting or any other concerns within the next 8 hours Clinical Impressions Clinical Impression: Head injury Instructions Patient Instructions: Closed Head Injury Discharge ED Provider: Claude Marina Adult HPI General Chief complaint: Headache Stated complaint: AO fall 09/03, h/a, dizzy, blurry vision, vomiting Time Seen by Provider: 09/05/22 12:15 Mode of Arrival: Ambulatory Source of Information: Patient Limitations: No Limitations Description of Symptoms (Recalled from ER Triage Doc. by RN): FALL ON 09/03, STRUCK TOP OF HEAD ON WOODEN BOX. DENIES LOC. C/O HEADACHE, N/V AND DIZZINESS. SENSITIVITY TO LIGHT. History of Present Illness HPI narrative: 21-year-old female presents after hitting her head on a wooden box a few days ago. She says she was intoxicated at the time. She slept it off and then over the last few days has had a headache dull nonradiating nausea vomiting and dizziness. More sensitivity to light as well. No numbness weakness or tingling arms or legs. Able to ambulate without difficulty Related Data Home Medications Medication Instructions Recorded Confirmed flecainide 150 mg tablet 150 mg PO Q12H antiarrhythmic 08/12/21 06/16/22 albuterol sulfate 90 mcg/actuation 2 puff inhalation Q4-6H PRN SOA, 06/16/22 06/16/22 aerosol inhaler wheezing brexpiprazole 1 mg tablet (Rexulti) 1 mg PO DAILY anxiety/depression 06/16/22 06/16/22 cetirizine 10 mg tablet 10 mg PO DAILY PRN Allergy Symptoms 06/16/22 06/16/22 metoprolol succinate 200 mg 200 mg PO DAILY heart arrhythmia 06/16/22 06/16/22 tablet,extended release 24 hr Allergies Allergy/AdvReac Type Severity Reaction Status Date / Time lisinopril Allergy Mild Cough Verified 08/12/21 13:44 cefprozil [From Cefzil] Allergy Verified 01/04/22 10:30 Cephalosporins Allergy Verified 01/04/22 10:30 esmolol Allergy Verified 06/16/22 04:11 methocarbamol [From Robaxin] Allergy Verified 08/12/21 13:44 [facility] Disclaimer: The information contained in this section may have been updated after the patient was seen, as this information can be updated by other users. Medical History Fracture of right lower leg History of heart attack Migraine Thyroid disease Urinary tract infection Surgical History History of cardiac catheterization History of cardiac radiofrequency ablation History of open heart surgery Family History Other No significant family history Social History Smoking Status: Never smoker alcohol intake: never substance use type: denies use current occupational status: unemployed Travel in the last 8 weeks: None housing: house caffeine: No ROS Obtained: Yes All systems reviewed & no additional complaints except as documented [place]
== END 2022-09-05 15:01 | disposition home or self-care (01) ==
LOC: UTC 12:05 → ER 12:25
PROVIDERS: Emergency Medicine; Emergency Provider Nurse Practitioner Family; PCP Family Medicine
DX: S09.8XXA Other specified injuries of head, initial encounter (principal); R11.10 Vomiting, unspecified; R42 Dizziness and giddiness; H53.8 Other visual disturbances; W22.8XXA Striking against or struck by other objects, initial encounter
CPT/HCPCS: 70450; 72125; 81025; 99284; 99285

== ENCOUNTER 2023-02-12 00:22 | Emergency (ER) | payer BC, SELFPAY ==
[2023-02-12 00:24] VITALS: BP 166/101; PULSE 85; RESP 18; TEMP 36.4; O2SAT 97; BMI 60.0
[2023-02-12 00:30] VITALS: BP 166/101; PULSE 96; RESP 20; O2SAT 97
[2023-02-12 00:46] LABS: Influenza A, PCR Not Detected (NotDetected); Influenza B, PCR Not Detected (NotDetected)
--- NOTE | 2023-02-12 00:48 | HMH.EDGENADL ---
Discharge Plan Disposition Patient Disposition: Home, Self-Care Chief Complaint: Upper Respiratory Infection Prescriptions Prescriptions: No Action flecainide 150 mg tablet 150 mg PO Q12H metoprolol succinate 200 mg tablet extended release 24 hr 200 mg PO DAILY Patient Comments: pt tkes @ 1200 daily Rx Instructions: TAKE 1 TABLET BY MOUTH ONCE DAILY, DO NOT CRUSH OR CHEW Rexulti 1 mg tablet 1 mg PO DAILY Patient Comments: TAKE 1 TABLET BY MOUTH ONCE DAILY, APT DUE IN JUNE, CALL AND SCHEDULE cetirizine 10 mg Tablet 10 mg PO DAILY PRN (Reason: Allergy Symptoms) albuterol sulfate 90 mcg/actuation HFA aerosol inhaler 2 puff INHALATION Q4-6H PRN (Reason: SOA, wheezing) Patient Comments: INHALE 1 PUFF BY MOUTH EVERY 4 HOURS NEEDED FOR 10 DAYS Referrals Follow up/Referrals: Stephen Stoddard MD [Primary Care Provider] - See instructions Activity Restrictions/Add. Instructions Additional Instructions/Restrictions: Please follow-up with your primary care provider. Please return to the emergency department if you develop any new or worsening symptoms or become concerned for your health. Clinical Impressions Clinical Impression: Cough, COVID-19 Discharge ED Provider: Robin Ayala General Adult HPI General Chief complaint: Upper Respiratory Infection Stated complaint: Body aches,cough Time Seen by Provider: 02/12/23 00:29 Mode of Arrival: Ambulatory Source of Information: Patient Limitations: No Limitations Description of Symptoms (Recalled from ER Triage Doc. by RN): Patient reports cough for 3 days and body aches today. Recent contact with mother whom is diagnosed with covid at this time. Denies pain, nausea, or vomiting. 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 She reports that she and her mom has COVID and she would like to be tested for COVID as well. She denies any significant shortness of breath. She denies fever at home. Related Data Home Medications Medication Instructions Recorded Confirmed flecainide 150 mg tablet 150 mg PO Q12H antiarrhythmic 08/12/21 06/16/22 albuterol sulfate 90 mcg/actuation 2 puff inhalation Q4-6H PRN SOA, 06/16/22 06/16/22 aerosol inhaler wheezing brexpiprazole 1 mg tablet (Rexulti) 1 mg PO DAILY anxiety/depression 06/16/22 06/16/22 cetirizine 10 mg tablet 10 mg PO DAILY PRN Allergy Symptoms 06/16/22 06/16/22 metoprolol succinate 200 mg 200 mg PO DAILY heart arrhythmia 06/16/22 06/16/22 tablet,extended release 24 hr Allergies Allergy/AdvReac Type Severity Reaction Status Date / Time lisinopril Allergy Mild Cough Verified 02/12/23 00:33 cefprozil [From Cefzil] Allergy Verified 02/12/23 00:33 Cephalosporins Allergy Verified 02/12/23 00:33 esmolol Allergy Verified 02/12/23 00:33 methocarbamol [From Robaxin] Allergy Verified 02/12/23 00:33 [facility] Disclaimer: The information contained in this section may have been updated after the patient was seen, as this information can be updated by other users. Medical History Fracture of right lower leg History of heart attack Migraine Thyroid disease Urinary tract infection Surgical History History of cardiac catheterization History of cardiac radiofrequency ablation History of open heart surgery Family History Other No significant family history Social History Smoking Status: Never smoker alcohol intake: never substance use type: denies use current occupational status: unemployed Travel in the last 8 weeks: None housing: house caffeine: No ROS Obtained: Yes All systems review
[2023-02-12 01:00] VITALS: BP 142/78; PULSE 91; RESP 18; O2SAT 97
[2023-02-12 01:08] LABS: Coronavirus 19, PCR Detected (NotDetected)
[2023-02-12 01:31] VITALS: BP 155/76; PULSE 80; RESP 18; TEMP 36.9
== END 2023-02-12 01:37 | disposition home or self-care (01) ==
PROVIDERS: Emergency Provider Emergency Medicine; PCP Family Medicine
DX: U07.1 COVID-19 (principal); R05.9 Cough, unspecified; Q89.3 Situs inversus
CPT/HCPCS: 87636; 99283

== ENCOUNTER 2023-04-28 13:03 | Emergency (ER) | payer BC, SELFPAY ==
[2023-04-28 13:15] VITALS: BP 157/92; PULSE 92; RESP 21; TEMP 36.8; O2SAT 97; BMI 62.0
--- NOTE | 2023-04-28 13:30 | EXP.UTC ---
Discharge Plan Disposition Patient Disposition: Home, Self-Care Condition: Good Prescriptions Prescriptions: New methylprednisolone 4 mg Tablets,Dose Pack 4 mg PO DIRECTED 6 Days Qty: 21 0RF Rx Instructions: Take 1 pack as directed for 6 days [id number] [Bromfed DM] 2-30-10 mg/5 mL Syrup 5 ml PO Q6H PRN (Reason: Cough) Qty: 240 0RF amoxicillin [amoxicillin] 875 mg tablet 875 mg PO Q12H Qty: 20 0RF No Action sotalol 160 mg tablet 160 mg PO BID Rexulti 2 mg tablet 2 mg PO DAILY bupropion HCl 100 mg tablet sustained-release 12 hr 100 mg PO DAILY Patient Comments: TAKE 1 TABLET BY MOUTH IN THE MORNING ONCE DAILY medroxyprogesterone 150 mg/mL suspension 150 mg IM ONCE Patient Comments: INJECT 1ML INTRAMUSCULARLY ONCE EVERY 3 MONTHS DIRECTED Ozempic 0.25 mg or 0.5 mg (2 mg/3 mL) pen injector 0.5 mg SQ WEEKLY Patient Comments: INJECT 0.5 MG SUBCUTANEOUSLY ONCE WEEKLY Referrals Follow up/Referrals: Charlotte Guerrier MD [Primary Care Provider] - See instructions Activity Restrictions/Add. Instructions Additional Instructions/Restrictions: Drink plenty of fluids. Take tylenol or ibuprofen for pain or fever. Take the medications as directed. Follow up with your regular doctor. GO TO THE ER FOR ANY WORSENING SYMPTOMS Clinical Impressions Clinical Impression: Pharyngitis Stand Alone Forms Stand Alone Forms: Work/School Release Instructions Patient Instructions: Strep Throat, DI for Strep Throat Discharge ED Provider: Claude Marina [facility] General Stated complaint: sore throat,cough,backpain Time Seen by Provider: 04/28/23 13:23 History of Present Illness Provider Complaint: She states that she has had sore throat, fever, and malaise for the past 2 days. Her mother and father both have strep throat at her home. Related Data Home Medications Medication Instructions Recorded Confirmed brexpiprazole 2 mg tablet (Rexulti) 2 mg PO DAILY 04/24/23 04/28/23 sotalol 160 mg tablet 160 mg PO BID 04/24/23 04/28/23 bupropion HCl 100 mg tablet,12 hr 100 mg PO DAILY 04/28/23 04/28/23 sustained-release medroxyprogesterone 150 mg/mL 150 mg IM ONCE 04/28/23 04/28/23 intramuscular suspension semaglutide 0.25 mg or 0.5 mg (2 0.5 mg SQ WEEKLY 04/28/23 04/28/23 mg/3 mL) subcutaneous pen injector (Ozempic) Previous Rx's Medication Instructions Recorded amoxicillin 875 mg tablet 875 mg PO Q12H #20 tabs 04/28/23 zfmwpdmersmzwph-uuxbhrsroxusxlm-LA 5 ml PO Q6H PRN Cough #240 mL 04/28/23 2 mg-30 mg-10 mg/5 mL oral syrup (Bromfed DM) methylprednisolone 4 mg tablets in 4 mg PO DIRECTED 6 days #21 tabs 04/28/23 a dose pack Allergies Allergy/AdvReac Type Severity Reaction Status Date / Time lisinopril Allergy Mild Cough Verified 04/24/23 10:33 cefprozil [From Cefzil] Allergy Verified 04/24/23 10:33 Cephalosporins Allergy Verified 04/24/23 10:33 esmolol Allergy Verified 04/24/23 10:33 methocarbamol [From Robaxin] Allergy Verified 04/24/23 10:33 PFS PFS Disclaimer: The information contained in this section may have been updated after the patient was seen, as this information can be updated by other users. Medical History Fracture of right lower leg History of heart attack Migraine Thyroid disease Urinary tract infection Surgical History History of cardiac catheterization History of cardiac radiofrequency ablation History of open heart surgery Family History Other No significant family history Social History Smoking Status: Never smoker alcohol intake: never substance use type: denies use current occupational status: unemployed Travel in the last 8 weeks: None housing: house caffeine: No ROS Obtained: Yes All systems reviewed & no additional complaints except as documented Constitutional Constitutional: Reports chills and Reports fever(s) Eyes Eyes: Denies eye discharge ENT Ears, Nose, Mouth, and Throat: Reports as per HPI Cardiovascular Cardiovascular: Denies chest pain Respiratory Respiratory: Denies chest congestion and Reports cough Gastrointestinal Gastrointestingal: Reports nausea; Denies abdominal pain, constipation, cramping, diarrhea or vomiting Musculoskeletal Musculoskeletal: Denies arthralgias Integumentary/Breasts Skin/Breast: Denies rash Neurologic Neurologic: Denies paresthesias Physical Exam General General appearance: alert and in no apparent distress Head Head exam: atraumatic, normocephalic and normal inspection Eye Eye exam: Present normal appearance, PERRL and EOMI ENT ENT exam: Present mucous membranes moist and normal external ear exam Expanded ENT Exam TM/Canal exam: Bilateral TM: erythema and bulging Nose exam: Absent sinus tenderness Mouth exam: Present normal external inspection; Absent drooling Teeth exam: Present normal inspection Throat exam: Present tonsillar erythema, tonsillomegaly and tonsillar exudate Neck Neck exam: Present normal inspection, full ROM and trachea midline; Absent tenderness, meningismus or lymphadenopathy Chest Chest inspection: Present normal inspection and symmetric chest wall rise; Absent tenderness Respiratory Respiratory exam: Present normal lung sounds bilaterally; Absent respiratory distress, wheezes, stridor or accessory muscle use Cardiovascular Cardiovascular exam: Present regular rate and normal rhythm; Absent systolic murmur or diastolic murmur Abdominal Exam Abdominal exam: Present soft and normal bowel sounds; Absent distention, tenderness, guarding, rebound or rigidity Extremities Exam Extremities exam: Present normal inspection and normal capillary refill; Absent calf tenderness Back Exam Back exam: Present normal inspection and full ROM; Absent tenderness, CVA tenderness (R) or CVA tenderness (L) Neurological Exam Neurological exam: Present alert, oriented X3 and CN II-XII intact Psychiatric Psychiatric exam: Present normal affect and normal mood Skin Skin exam: Present warm, dry, intact and normal color Medical Decision Making Medical Records Medical records reviewed: No I reviewed the patient's medical records. Parish Inquiry Pt receiving controlled substance: No Lab Data Lab results reviewed: Yes I reviewed the patient's lab results.
[2023-04-28 13:45] LABS: UTC Strep Screen (Rapid) Negative (Negative)
[2023-04-28 14:08] VITALS: BP 157/92; PULSE 92; RESP 21; TEMP 36.8; O2SAT 97
== END 2023-04-28 14:12 | disposition home or self-care (01) ==
PROVIDERS: Emergency Provider Nurse Practitioner Family; PCP Family Medicine
DX: J02.9 Acute pharyngitis, unspecified (principal); R50.9 Fever, unspecified; R53.81 Other malaise; Z20.818 Contact with and (suspected) exposure to other bacterial communicable diseases
CPT/HCPCS: 87880; 99212; 99214; G0463

== ENCOUNTER 2023-05-14 14:38 | Emergency (ER) | payer BC, SELFPAY ==
[2023-05-14 15:00] VITALS: BP 126/84; PULSE 85; RESP 19; TEMP 36.4; O2SAT 97; BMI 60.9
--- NOTE | 2023-05-14 15:23 | EXP.UTC ---
Discharge Plan Disposition Patient Disposition: Home, Self-Care Condition: Good Prescriptions Prescriptions: New methylprednisolone [Medrol (Mk)] 4 mg tablets,dose pack See Rx Instructions .Route .COMPLEX 6 Days Qty: 21 0RF Rx Instructions: taper pack; doxycycline hyclate 100 mg capsule 100 mg PO BID 7 Days Qty: 14 0RF No Action sotalol 160 mg tablet 160 mg PO BID Rexulti 2 mg tablet 2 mg PO DAILY medroxyprogesterone 150 mg/mL suspension 150 mg IM ONCE Patient Comments: INJECT 1ML INTRAMUSCULARLY ONCE EVERY 3 MONTHS DIRECTED Ozempic 0.25 mg or 0.5 mg (2 mg/3 mL) pen injector 0.5 mg SQ WEEKLY Patient Comments: INJECT 0.5 MG SUBCUTANEOUSLY ONCE WEEKLY lisdexamfetamine 30 mg capsule 30 mg PO DAILY Patient Comments: TAKE 1 CAPSULE BY MOUTH ONCE DAILY Referrals Follow up/Referrals: Charlotte Guerrier MD [Primary Care Provider] - See instructions Activity Restrictions/Add. Instructions Additional Instructions/Restrictions: *Monitor Temp, Over the counter Motrin or Tylenol as directed/as needed Tylenol every 4 hours and Motrin every 6 hours (as long as your family doctor has told you that you can take it) for fever or pain. and straight to ER if unable to lower temp less than 101.0 after medication given *Warm salt water gargles may help to soothe the throat *Throat Lozenges? *Warm fluids like tea with honey may help to soothe the throat? *Sleep elevated *Humidifier/Vaporizer Follow up IMMEDIATELY for new or worsening symptoms or no Noticeable improvement over the next 48-72 hours. 911 for difficulty breathing or swallowing Clinical Impressions Clinical Impression: Sinusitis Instructions Patient Instructions: DI for Sinusitis, Sinusitis Discharge ED Provider: Kourtney Gregorio [facility] [place] H[place] General Stated complaint: congestion, RUSHING, cough, soa Mode of Arrival: Ambulatory Source of Information: Patient Limitations: No Limitations Time Seen by Provider: 05/14/23 15:23 Description of Symptoms (Recalled from Triage Doc. by RN): PATIENT C/O CONGESTION, HEADACHE, COUGH, AND TROUBLE BREATHING X 1 WEEK HEENT Symptoms (Recalled from RN notes): Yes Resp Symptoms (Recalled from RN notes): Yes Skin Symptoms (Recalled from RN notes): No MS Symptoms (Recalled from RN notes): No Functional Status (Recalled from RN notes): WNL History of Present Illness Provider Complaint: Patient states that she has been having sinus pain and pressure along with trouble breathing out of her nose for over a week States that she has had pressure behind her eyes feels like she has a sinus infection Related Data Home Medications Medication Instructions Recorded Confirmed brexpiprazole 2 mg tablet (Rexulti) 2 mg PO DAILY 04/24/23 05/14/23 sotalol 160 mg tablet 160 mg PO BID 04/24/23 05/14/23 medroxyprogesterone 150 mg/mL 150 mg IM ONCE 04/28/23 05/14/23 intramuscular suspension semaglutide 0.25 mg or 0.5 mg (2 0.5 mg SQ WEEKLY 04/28/23 05/14/23 mg/3 mL) subcutaneous pen injector ([employer]) lisdexamfetamine 30 mg capsule 30 mg PO DAILY 05/14/23 05/14/23 Previous Rx's Medication Instructions Recorded doxycycline hyclate 100 mg capsule 100 mg PO BID 7 days #14 caps 05/14/23 methylprednisolone 4 mg tablets in See Rx Instructions .Route 05/14/23 a dose pack (Medrol (Mk)) .COMPLEX 6 days #21 tabs Allergies Allergy/AdvReac Type Severity Reaction Status Date / Time lisinopril Allergy Mild Cough Verified 04/24/23 10:33 cefprozil [From Cefzil] Allergy Verified 04/24/23 10:33 Cephalosporins Allergy Verified 04/24/23 10:33 esmolol Allergy Verified 04/24/23 10:33 methocarbamol [From Robaxin] Allergy Verified 04/24/23 10:33 Worker's Comp Is this a Worker's Comp case?: No [facility] Disclaimer: The information contained in this section may have been updated after the patient was seen, as this information can be updated by other users. Medical History Fracture of right lower leg History of heart attack Migraine Thyroid disease Urinary tract infection Surgical History History of cardiac catheterization History of cardiac radiofrequency ablation History of open heart surgery Family History Other No significant family history Social History Smoking Status: Never smoker alcohol intake: never substance use type: denies use current occupational status: unemployed Travel in the last 8 weeks: None housing: house caffeine: No ROS Obtained: Yes All systems reviewed & no additional complaints except as documented and Yes Systems reviewed as appropriate & no additional complaints except as documented Constitutional Constitutional: Reports system reviewed and no additional complaints, except as documented, Reports as per HPI and Reports headache(s) ENT Ears, Nose, Mouth, and Throat: Reports system reviewed and no additional complaints, except as documented, Reports as per HPI, Reports headache(s), Reports sinus pain and Reports sinus pressure Cardiovascular Cardiovascular: Reports system reviewed and no additional complaints, except as documented and Reports as per HPI Respiratory Respiratory: Reports system reviewed and no additional complaints, except as documented, Reports as per HPI and Reports cough Gastrointestinal Gastrointestingal: Reports system reviewed and no additional complaints, except as documented and as per HPI Musculoskeletal Musculoskeletal: Reports system reviewed and no additional complaints, except as documented and Reports as per HPI Neurologic Neurologic: Reports headache(s) Physical Exam General General appearance: alert and in no apparent distress ENT ENT exam: Present mucous membranes moist Expanded ENT Exam Nose exam: Present sinus tenderness Chest Chest inspection: Present normal inspection and symmetric chest wall rise Respiratory Respiratory exam: Present normal lung sounds bilaterally; Absent respiratory distress or wheezes Cardiovascular Cardiovascular exam: Present regular rate, normal rhythm and normal heart sounds Abdominal Exam Abdominal exam: Present soft and normal bowel sounds; Absent distention or tenderness Neurological Exam Neurological exam: Present alert, oriented X3 and normal gait Medical Decision Making Parish Inquiry Pt receiving controlled substance: No Parish was queried for this patient: No Vital Signs: 05/14/23 15:00 Temperature 97.5 F L Temperature Source Oral Pulse Rate [Left Brachial] 85 Respiratory Rate 19 Blood Pressure [Left Arm] 126/84 Blood Pressure Mean [Left Arm] 98 Blood Pressure Source [Left Arm] Automatic Cuff Blood Pressure Position [Left Arm] Sitting 02 Sat by Pulse Oximetry 97 Oxygen Delivery Method Room Air Medical Decision Narrative: Patient denies
[2023-05-14 15:39] VITALS: BP 126/84; PULSE 85; RESP 19; TEMP 36.4; O2SAT 97
== END 2023-05-14 15:41 | disposition home or self-care (01) ==
PROVIDERS: Emergency Provider Nurse Practitioner; PCP Family Medicine
DX: J01.90 Acute sinusitis, unspecified (principal); R51.9 Headache, unspecified; R05.9 Cough, unspecified; R06.89 Other abnormalities of breathing; I25.2 Old myocardial infarction; E07.9 Disorder of thyroid, unspecified
CPT/HCPCS: 99212; 99214; G0463

== ENCOUNTER 2023-06-29 10:10 | Outpatient (CLI) | payer BC, SELFPAY ==
--- NOTE | 2023-06-29 10:18 | MR_ITS ---
FINAL REPORT TECHNIQUE: Multiplanar MR without contrast CLINICAL HISTORY: LUMBAR BACK PAIN WITH RADICULPATHY AFFECTING R. LOWER EXT. FINDINGS: Sagittal images show normal vertebral height. Alignment is normal. Marrow signal pattern is unremarkable. L1-2: Unremarkable L2-3: Unremarkable L3-4: Unremarkable L4-5: Mild annular disc bulge, asymmetric to the right. There is mild right neural foraminal narrowing without canal stenosis. There is right lateral recess stenosis. L5-S1: Unremarkable IMPRESSION: Mild annular disc bulge at L4-5, asymmetric to the right contributing to right neural foraminal narrowing and right lateral recess stenosis. Reviewed, Interpreted and Dictated by Neelam Wilkins MD Transcribed by Linda Martinez Authenticated and [facility]
== END 2023-06-29 23:59 | disposition home or self-care (01) ==
LOC: RAD 10:11
PROVIDERS: PCP Nurse Practitioner; Visit Provider Nurse Practitioner
DX: M54.17 Radiculopathy, lumbosacral region (principal); M54.50 Low back pain, unspecified
CPT/HCPCS: 72148; 76376

== ENCOUNTER 2023-08-17 19:02 | Emergency (ER) | payer BC, SELFPAY ==
--- OUTSIDE RECORDS SUMMARY | 2023-08-17 19:07 | XMS_ITS ---
Author Name Unknown Address [address] [place] [address] [place] [address] Phone Organization [facility] , [facility] Address [address] [place] [address] Phone Care Team Providers Care Touring Production Manager Name Role Phone Cuong DAVIS, David Porter Unavailable [phone] HAWK LEYVA MD Unavailable [phone] Problems Includes: Active, inactive, and resolved Problems All Visits Onset Date Resolved Date Provider Condition S tatus Lower Back Pain 07/06/2023 David Hutchins MD Act sabino Last Documented On 4 9:35AM ; [facility], [facility] Plan of Treatment Future Appointments Date Time Location Provi karen Follow Up 09/14/2023 11:00AM [facility] David Hutchins MD Last Documented On 4 8:08AM ; [facility], [facility] Instructions to patient Lose weight Last Documented On 4 9:43AM ; [facility], [facility] Assessments Includes: Assessments for all patient encounters Findings Encounter Date Overweight Physician Specified with David Hutchins MD 07/06/2023 Last Documented On 4 2:57PM ; [facility], [facility] Instructions Includes: Instructions for all patient encounters Instructions to patient Lose weight Last Documented On 4 9:43AM ; [facility], [facility] Medical Equipment - Implanted Devices Includes: Current and historical Devices No Medical Equipment Recorded Medications Includes: Current and historical Medications Current Medications (continue as prescribed) Meloxicam 15 MG Oral Tablet 07/06/2023 - 09/04/2023 Pr ovider: David Hutchins MD Diagnosis: Take one tablet my mouth once a day Last Documented On 4 10:02AM By Nicole Jarrett [facility], [facility] Furosemide 20 MG Oral Tablet 06/28/2023 Provider: Diagnosis: Last Documented On 4 9:36AM By Nicole Malloy ; [facility], [facility] Ozempic (1 MG/DOSE) 4 MG/3ML Subcutaneous Solution Pen-injector 06/26/2023 Provider: Valerie ROJAS RN Diagnosis: Last Documented On 4 9:36AM By Nicole Malloy ; [facility], [facility] busPIRone HCl 5 MG Oral Tablet 06/12/2023 Provider: Diagnosis: Last Documented On 4 9:36AM By Nicole Malloy ; [facility], [facility] Vyvanse 40 MG Oral Capsule 06/12/2023 Provider: Diagnosis: Last Documented On 4 9:36AM By Nicole Malloy ; [facility], [facility] Rexulti 2 MG Oral Tablet 06/10/2023 Provider: Diagnosis: Last Documented On 4 9:36AM By Nicole Malloy ; [facility], [facility] Sotalol HCl 160 MG Oral Tablet 02/22/2023 Provider: Diagnosis: Last Documented On 4 9:36AM By Nicole Malloy ; [facility], [facility] Past Medications on file Cyclobenzaprine HCl 10 MG Or al Tablet 07/06/2023 - 08/05/2023 Provider: David Hutchins MD Diagnosis: Take 1 tablet every 8 hrs pr n pain Take 1 tablet every 8 hrs prn muscle spasms Last Documented On 4 10:02AM By Nicole Malloy ; [facility], [facility] Medications Administered Includes: Administered Medications in patient's chart No Administered Medications Recorded Vital Signs Includes: Vital Signs from 08/16/2022 through 08/17/2023 Vital Name 07/06/2023 09:43A Height (in) 71 Weight (lb) 434.4 Body Mass Index 60.6 Body Surface Area 2.9 Pain Level 7 Note: lc Last Documented: On 07/06/2023 9:43AM ; [facility], [facility] Results Includes: Results from 08/16/2022 through 08/17/2023 No Results Recorded For Specified Dates History of Present Illness History of Present Illness not supported for this document type No History of Present Illness Recorded Social History Description Last Updated Exercising regularly 07/06/2023 Last Documented On 4 2:57PM ; [facility], [facility] No caffeine use 07/06/2023 Last Documented On 4 2:57PM ; [facility], [facility] Not a current smoker. 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 Last Documented On 4 2:57PM ; [facility], [facility] Smoking Status Unknown Procedures and Surgical History Surgical History Last Updated Past Surgical History: sx on right leg x 2 07/06/2023 Last Documented On 4 2:57PM ; [facility], [facility] History of heart surgery 07/06/2023 Last Documented On 4 2:57PM ; [facility], [facility] Medical History Includes: Medical History in patient's chart Description Last Updated History of Heart Attack 07/06/2023 Last Documented On 4 2:57PM ; [facility], [facility] History of Stroke 07/06/2023 Last Documented On 4 2:57PM ; [facility], [facility] History of depression 07/06/2023 Last Documented On 4 2:57PM ; [facility], [facility] History of heart disease 07/06/2023 Last Documented On 4 2:57PM ; [facility], [facility] History of History of Heart Attack / Str gladys 07/06/2023 Last Documented On 4 2:57PM ; [facility], [facility] History of Irregular Heartbeat 4 Last Documented On 4 2:57PM ; [facility] History of Sleep Apnea 07/06/2023 Last Documented On 4 2:57PM ; [facility] Family History Includes: Family History in patient's chart Description Last Updated No significant family history 07/06/2023 Last Documented On 4 2:57PM ; [facility] Review of Systems Review of Systems not supported for this document type No Review of Systems Recorded Mental Status Description Anxiety Functional Status No Functional Status Recorded Physical Exam Physical Exam not supported for this document type No Physical Exam Recorded Allergies Includes: Active, inactive, and resolved Allergies Substance Type Reaction Onset Date Resolved Date Statu s Robaxin Allergy Nausea, Vomiting 07/06/2023 Ac tive Last Documented On 4 9:38AM ; [facility] Lisinopril Allergy 07/06/2023 Active Last Documented On 4 9:39AM ; [facility] Cefprozil Allergy Nausea, Vomiting 07/06/2023 Ac tive Last Documented On 4 9:38AM ; [facility] Encounters Includes: Encounters from 08/16/2022 through 08/17/2023 Encounter Provider Location Date Check-In Time Check-Out Time Diagnosis Physician Specified David Hutchins MD [facility] 07/06/19 24 9:27AM 9:55AM Overweight Insurance Includes: Active Insurance Policies Plan Name Member ID Group # Subscriber Relationship Effect sabino Dates 1 - [facility] [id number] Daniela Murray Self Clinical Notes Includes: Signed Clinical Notes starting from 02/10/2022 * Progress note Date Encounter Last Documented by 07/06/2023 Physician Specified Last documen alissa on 08/16/2023; 2:57 PM, David Hutchins MD; [facility] Active Problems & Conditions - Lower Back Pain Chief Complaint The Chief Complaint is: Low back pain. Referred Here Referred by PCP. History of Present Illness Daniela Murray is a 22 year old female. - Symptoms Giving way Core strengthening exercises makes symptoms better. Moving, bending, and standing from a sitting position makes symptoms worse. - Allergy list reviewed - Problem list reviewed - Medication list reviewed - Patient pain level from 1-10: 7 - History of Home Exercise Core strengthening exercises given by chiropractor - History of Chiropractic Core Chiropractic - No previous treatment. - - Review of medications documented- Review of medications documented Current Medication - busPIRone HCl 5 MG Oral Tablet 30 days, 0 refills - Furosemide 20 MG Oral Tablet 30 days, 0 refills - Ozempic (1 MG/DOSE) 4 MG/3ML Subcutaneous Solution Pen-injector 28 days, 0 refills - Rexulti 2 MG Oral Tablet 30 days, 0 refills - Sotalol HCl 160 MG Oral Tablet 90 days, 0 refills - Vyvanse 40 MG Oral Capsule 30 days, 0 refills Past Medical/Surgical History Reported: History of Stroke and History of Heart Attack. Diagnoses: Heart disease. Irregular Heartbeat Sleep Apnea History of Heart Attack / Stroke. Depression Surgical: - Heart surgery - Past Surgical History: sx on right leg x2 Social History Not a current smoker. Current diet: Recent change in diet bariatric diet. Caffeine use: No caffeine use. Alcohol: Not using alcohol. Drug Use: Not using drugs. Habits: Exercising regularly. 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 Allergies - Cefprozil Reaction: Nausea, Vomiting - Lisinopril - Robaxin Reaction: Nausea, Vomiting Family History No significant family history Review Of Systems Systemic: No symptoms, not feeling tired, no recent weight loss, and no recent weight gain. Head: No headache and no sinus pain. Eyes: No vision problems and no Cataracts. Glasses/Contacts. No Glaucoma. Otolaryngeal: No hearing loss and no tinnitus. Cardiovascular: Chest pain or discomfort. No palpitations. Hypertension. No High Cholesterol. Pulmonary: No daytime asthma symptoms and no chronic cough. No wheezing. Gastrointestinal: No heartburn and no abdominal pain. No Indigestion, no Peptic Ulcer, no GI Stomach Bleed, no Ulcers, and no Acid Reflux. Endocrine: Hot flashes. No muscle weakness, no Diabetes, no Hypothyroid, and no Hyperthyroid. Hematologic: No easy bleeding, no tendency for easy bruising, and no Anemia. Musculoskeletal: Arthritis and lower back pain. No soft tissue swelling and no localized joint pain. Neurological: No dizziness, no convulsions, and no numbness. Psychological: Anxiety, emotional lability, and depression. No insomnia. Not crying for no reason. Skin: No dry skin. No Ulcers, no Scars, and no rash. Allergic and Immunologic: Complaint of seasonal allergic reaction. Physical Findings - Vitals taken 07/06/2023 09:43 am lc Height 71 in Weight 434 lbs 6.4 oz Body Mass Index 60.6 kg/m2 Body Surface Area 2.9 m2 Pain Level 7 Assessment - Overweight Previous Tests Imaging: X-Ray: An X-ray was performed. MRI Scan: An MRI was performed L-spine MRI 06/29/23 @ [facility]. Available previous imaging studies were reviewed Available previous history reviewed Counseling/Education - Tobacco non-user - Use of tobacco assessment performed - Lose weight Plan StartCited - Low back pain, unspecified Therapy/Physical Therapy: Lumbar Instructions: See PT order attached EndCited StartCited - Other Meloxicam 15 MG tablet Take one tablet my mouth once a day, 30 days, 1 refills Cyclobenzaprine HCl 10 MG tablet Take 1 tablet every 8 hrs prn pain Take 1 tablet every 8 hrs prn muscle spasms, 30 days, 0 refills EndCited Notes This dictation was done with voice recognition software and may contain errors and omissions. Patient is here for back and right leg pain. The most severe pain has been going on for about a week or so. She is some mild weakness in the EHL. She has super morbid obesity he is being treated at the [facility]. She has a heart condition as well. She has a negative straight leg raise. 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 I have recommended we try some physical therapy as well as an anti-inflammatory and muscle relaxer. We will see her back in 6 weeks and if his consider an injection if she has not improved Care Team - HAWK LEYVA MD - HOUSE MANAGER Health Reminders - Assess BMI satisfied 07/06/2023. - Assess Tobacco Use satisfied 07/06/2023. - Follow Up Plan BMI Management satisfied 07/06/2023.
--- OUTSIDE RECORDS SUMMARY | 2023-08-17 19:07 | XMS_ITS ---
Care Plan - [facility], [facility] Created on: August 17, 2023 Daniela Murray : 2000 Sex: Female Author Name Unknown Address [address] [place] [address] [place] [address] Phone Organization [facility] Address [address] [place] [address] Phone Care Team Providers Care Sap Portal Architect Name Role Phone Cuong DAVIS, David Porter Unavailable [phone] GORDON DAVIS, HAWK Kaba Unavailable [phone]
--- OUTSIDE RECORDS SUMMARY | 2023-08-17 19:07 | XMS_ITS | Clinical Summary ---
Author Name Unknown Address [address] [place] [address] [place] [address] Phone Organization [facility] , [facility] Address [address] [place] [address] Phone Care Team Providers Care Machine Shorthand Teacher Name Role Phone Cuong DAVIS, David Porter Unavailable [phone] HAWK LEYVA MD Unavailable [phone] Reason for Visit and Chief Complaint The Chief Complaint is: low back pain Problems Includes: Problems addressed during this encounter and other active Problems Current Visit Onset Date Resolved Date Provider Remi bianchi Status Lower Back Pain 07/06/2023 David Hutchins MD Act sabino Last Documented On 4 9:35AM ; [facility], [facility] Plan of Treatment Pending Tests Order Diagnosis Results Due Ordering P rovider Therapy - Physical Therapy Lumbar Low back pain, unspecified 07/06/23 David Hutchins MD Last Documented On 4 2:57PM ; [facility], [facility] Future Appointments Date Time Location Provi karen Follow Up 09/14/2023 11:00AM [facility] David Hutchins MD Last Documented On 4 8:08AM ; [facility], [facility] Instructions to patient Lose weight Last Documented On 4 9:43AM ; [facility], [facility] Assessments Includes: Assessments from this encounter Findings - Overweight - Last Documented On 08/16/2023 2:57PM ; [facility], [facility] Instructions Includes: Instructions from this encounter Instructions to patient Lose weight Last Documented On 4 9:43AM ; [facility], [facility] Medical Equipment - Implanted Devices Includes: Current Devices No Medical Equipment Recorded Medications Includes: Medications discussed during this encounter and other current Medications New / Renewed during this visit David Hutchins MD on 07/06/2023 Meloxicam 15 MG Oral Tablet Provider: David Hutchins MD 30 day supply: 30 tablet, 1 refills Diagnosis: Take one tablet my mouth once a day Pharmacy: [facility] [phone] [place], [address] - Last Documented On 4 10:02AM By Nicole Malloy ; [facility] Cyclobenzaprine HCl 10 MG Or al Tablet Provider: David Hutchins MD 30 day supply: 90 tablet, 0 refills Diagnosis: Take 1 tablet every 8 hrs pr n pain Take 1 tablet every 8 hrs prn muscle spasms Pharmacy: [facility] [phone] [facility], [id number] - Last Documented On 4 10:02AM By Nicole Malloy ; [facility], [facility] Current Medications (continue as prescribed) Furosemide 20 MG Oral Tablet 06/28/2023 Provider: Diagnosis: Last Documented On 4 9:36AM By Nicole Malloy ; [facility], [facility] Ozempic (1 MG/DOSE) 4 MG/3ML Subcutaneous Solution Pen-injector 06/26/2023 Provider: Valerie ROJAS RN Diagnosis: Last Documented On 4 9:36AM By Nicole Malloy ; [facility], [facility] busPIRone HCl 5 MG Oral Tablet 06/12/2023 Provider: Diagnosis: Last Documented On 4 9:36AM By Nicole Malloy ; [facility], [facility] Vyvanse 40 MG Oral Capsule 06/12/2023 Provider: Diagnosis: Last Documented On 4 9:36AM By Nicole Mallyo ; [facility] Rexulti 2 MG Oral Tablet 06/10/2023 Provider: Diagnosis: Last Documented On 4 9:36AM By Nicole Malloy ; [facility], [facility] Sotalol HCl 160 MG Oral Tablet 02/22/2023 Provider: Diagnosis: Last Documented On 4 9:36AM By Nicole Malloy ; [facility], [facility] Medications Administered Includes: Administered Medications from this encounter No Administered Medications Recorded Vital Signs Includes: Vital Signs from this encounter Vital Name 07/06/2023 09:43A Height (in) 71 Weight (lb) 434.4 Body Mass Index 60.6 Body Surface Area 2.9 Pain Level 7 Note: Last Documented: On 07/06/2023 9:43AM ; [facility] Results Includes: Results discussed during this encounter No Results Recorded For Specified Dates History of Present Illness Includes: History of Present Illness from this encounter AKASH Murray is a 22 year old female. [...] previous treatment. - - Review of medications documented - Review of medications documented Social History Description Last Updated Exercising regularly 07/06/2023 Last Documented On 4 2:57PM ; [facility] No caffeine use 07/06/2023 Last Documented On 4 2:57PM ; [facility] Not a current smoker. 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 Last Documented On 4 2:57PM ; [facility] Smoking Status Unknown Procedures and Surgical History Includes: Procedures from this encounter Procedures Code Diagnosis Performing Provider Service L ocation Service Date an X-ray was performed [id number] Last Documented On 4 9:41AM ; [facility] an MRI was performed L-spine MRI 06/29/23 @ [facility] [id number] Last Documented On 4 9:41AM ; [facility] Surgical History Last Updated Past Surgical History: sx on right leg x 2 07/06/2023 Last Documented On 4 2:57PM ; [facility], [facility] History of heart surgery 07/06/2023 Last Documented On 4 2:57PM ; [facility], [facility] Medical History Includes: Medical History addressed during this encounter Description Last Updated History of Heart Attack 07/06/2023 Last Documented On 4 2:57PM ; [facility] History of Stroke 07/06/2023 Last Documented On 4 2:57PM ; [facility] History of depression 07/06/2023 Last Documented On 4 2:57PM ; [facility] History of heart disease 07/06/2023 Last Documented On 4 2:57PM ; [facility] History of History of Heart Attack / Str gladys 07/06/2023 Last Documented On 4 2:57PM ; [facility] History of Irregular Heartbeat 4 Last Documented On 4 2:57PM ; [facility] History of Sleep Apnea 07/06/2023 Last Documented On 4 2:57PM ; [facility] Family History Includes: Family History addressed during this encounter Description Last Updated No significant family history 07/06/2023 Last Documented On 4 2:57PM ; [facility] Review of Systems Includes: Review of Systems from this encounter Systemic: No symptoms, not feeling tired, no [...] and Immunologic: Complaint of seasonal allergic reaction. Mental Status Includes: Mental Status from this encounter Description Anxiety Functional Status Includes: Functional Status from this encounter No Functional Status Recorded Physical Exam Includes: Physical Exam from this encounter Allergies Includes: Active Allergies Substance Type Reaction Onset Date Resolved Date Statu s Robaxin Allergy Nausea, Vomiting 07/06/2023 Ac tive Last Documented On 4 9:38AM ; [facility], [facility] Lisinopril Allergy 07/06/2023 Active Last Documented On 4 9:39AM ; [facility], [facility] Cefprozil Allergy Nausea, Vomiting 07/06/2023 Ac tive Last Documented On 4 9:38AM ; [facility], [facility] Encounters Encounter Provider Location Date Check-In Time Check-Out Time Diagnosis Physician Specified David Hutchins MD [facility] 07/06/19 24 9:27AM 9:55AM Overweight Insurance Includes: Active Insurance Policies Plan Name Member ID Group # Subscriber Relationship Effect sabino Dates 1 - [facility] [id number] Daniela Murray Self Clinical Notes Includes: Clinical Notes from this encounter * Progress note Date Encounter Last Documented by 07/06/2023 Physician Specified Last [facility] max[facility] on 08/16/2023; 2:57 PM, David Hutchins MD; [facility], [facility] Active Problems & Conditions - Lower [...] using drugs. Habits: Exercising regularly. 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 Allergies - Cefprozil Reaction: Nausea, Vomiting - [...] MRI was performed L-spine MRI 06/29/23 @ [facility]. Available previous imaging studies were reviewed Available [...] Care Team - HAWK LEYVA MD - DECORATING AND ASSEMBLY SUPERVISOR Health Reminders - Assess BMI satisfied 07/06/2023. - Assess Tobacco Use satisfied 07/06/2023. - Follow Up Plan BMI Management satisfied 07/06/2023.
[2023-08-17 19:15] VITALS: BP 143/96; PULSE 90; RESP 20; TEMP 36.6; O2SAT 96; BMI 57.2
--- NOTE | 2023-08-17 19:22 | ED_ITS ---
Discharge Plan Disposition Patient Disposition: Home, Self-Care Condition: Good Prescriptions Prescriptions: New bisacodyl 10 mg suppository 10 mg MI DAILY PRN (Reason: constipation) Qty: 12 0RF docusate sodium [Colace] 100 mg capsule 100 mg PO DAILY Qty: 30 5RF No Action sotalol 160 mg tablet 160 mg PO BID Rexulti 2 mg tablet 2 mg PO DAILY medroxyprogesterone 150 mg/mL suspension 150 mg IM ONCE Patient Comments: INJECT 1ML INTRAMUSCULARLY ONCE EVERY 3 MONTHS DIRECTED Ozempic 0.25 mg or 0.5 mg (2 mg/3 mL) pen injector 0.5 mg SQ WEEKLY Patient Comments: INJECT 0.5 MG SUBCUTANEOUSLY ONCE WEEKLY lisdexamfetamine 30 mg capsule 30 mg PO DAILY Patient Comments: TAKE 1 CAPSULE BY MOUTH ONCE DAILY methylprednisolone [Medrol (Mk)] 4 mg tablets,dose pack See Rx Instructions .Route .COMPLEX 6 Days Qty: 21 0RF Rx Instructions: taper pack; doxycycline hyclate 100 mg capsule 100 mg PO BID 7 Days Qty: 14 0RF Referrals Follow up/Referrals: Peg Reyes APRN [Primary Care Provider] - See instructions Activity Restrictions/Add. Instructions Additional Instructions/Restrictions: Drink plenty of fluids. Make sure you are eating a diet that is high in fiber. Take the medications as directed. Follow up with your regular doctor. GO TO THE ER FOR ANY WORSENING SYMPTOMS Clinical Impressions Clinical Impression: Constipation Stand Alone Forms Stand Alone Forms: Work/School Release Instructions Patient Instructions: DI for Constipation, Bisacodyl Rectal Discharge ED Provider: Claude Marina [facility] General Stated complaint: constipated Mode of Arrival: Ambulatory Source of Information: Patient Limitations: No Limitations Time Seen by Provider: 08/17/23 19:15 Description of Symptoms (Recalled from Triage Doc. by RN): PATIENT C/O CONSTIPATION X 2 DAYS HEENT Symptoms (Recalled from RN notes): No Resp Symptoms (Recalled from RN notes): No Skin Symptoms (Recalled from RN notes): No MS Symptoms (Recalled from RN notes): No Functional Status (Recalled from RN notes): WNL History of Present Illness Provider Complaint: She states that she is having constipation. She states that her last normal bowel movement was 4 days ago. Related Data Home Medications Medication Instructions Recorded Confirmed brexpiprazole 2 mg tablet (Rexulti) 2 mg PO DAILY 04/24/23 05/14/23 sotalol 160 mg tablet 160 mg PO BID 04/24/23 05/14/23 medroxyprogesterone 150 mg/mL 150 mg IM ONCE 04/28/23 05/14/23 intramuscular suspension semaglutide 0.25 mg or 0.5 mg (2 0.5 mg SQ WEEKLY 04/28/23 05/14/23 mg/3 mL) subcutaneous pen injector (Ozempic) lisdexamfetamine 30 mg capsule 30 mg PO DAILY 05/14/23 05/14/23 Previous Rx's Medication Instructions Recorded doxycycline hyclate 100 mg capsule 100 mg PO BID 7 days #14 caps 05/14/23 methylprednisolone 4 mg tablets in See Rx Instructions .Route 05/14/23 a dose pack (Medrol (Mk)) .COMPLEX 6 days #21 tabs bisacodyl 10 mg rectal suppository 10 mg MI DAILY PRN constipation 08/17/23 #12 ea docusate sodium 100 mg capsule 100 mg PO DAILY #30 caps 08/17/23 (Colace) Allergies Allergy/AdvReac Type Severity Reaction Status Date / Time lisinopril Allergy Mild Cough Verified 04/24/23 10:33 cefprozil [From Cefzil] Allergy Verified 04/24/23 10:33 Cephalosporins Allergy Verified 04/24/23 10:33 esmolol Allergy Verified 04/24/23 10:33 methocarbamol [From Robaxin] Allergy Verified 04/24/23 10:33 Worker's Comp Is this a Worker's Comp case?: No [facility] Disclaimer: The information contained in this section may have been updated after the patient was seen, as this information can be updated by other users. Medical History Fracture of right lower leg History of heart attack Migraine Thyroid disease Urinary tract infection Surgical History History of cardiac catheterization History of cardiac radiofrequency ablation History of open heart surgery Family History Other No significant family history Social History (Reviewed 04/24/23 @ 10:35 by KENDRICK Ram Smoking Status: Never smoker alcohol intake: never substance use type: denies use current occupational status: unemployed Travel in the last 8 weeks: None housing: house caffeine: No ROS Obtained: Yes All systems reviewed & no additional complaints except as documented Constitutional Constitutional: Denies chills, Denies fever(s) and Reports poor appetite ENT Ears, Nose, Mouth, and Throat: Denies dizziness and Denies sore throat Cardiovascular Cardiovascular: Denies dyspnea Respiratory Respiratory: Denies chest congestion, Denies cough and Denies dyspnea Gastrointestinal Gastrointestingal: Reports as per HPI; Denies abdominal pain Genitourinary Female Genitourinary: Denies difficulty voiding, Denies dysuria, Denies hematuria, Denies urinary frequency, Denies urinary incontinence, Denies urinary hesitancy and Denies urinary urgency Musculoskeletal Musculoskeletal: Denies arthralgias Integumentary/Breasts Skin/Breast: Denies rash Neurologic Neurologic: Denies dizziness Physical Exam General General appearance: alert and in no apparent distress Head Head exam: atraumatic and normocephalic Eye Eye exam: Present normal appearance, PERRL and EOMI ENT ENT exam: Present normal exam, normal oropharynx, mucous membranes moist, TM's normal bilaterally and normal external ear exam Neck Neck exam: Present normal inspection, full ROM and trachea midline; Absent tenderness, meningismus or lymphadenopathy Chest Chest inspection: Present normal inspection and symmetric chest wall rise; Absent tenderness, rash or abscess Respiratory Respiratory exam: Present normal lung sounds bilaterally; Absent respiratory distress, wheezes or stridor Cardiovascular Cardiovascular exam: Present regular rate and normal rhythm; Absent irregular rhythm, systolic murmur, diastolic murmur or JVD Abdominal Exam Abdominal exam: Present soft and normal bowel sounds; Absent distention, tenderness, guarding, rebound, rigidity, psoas sign, obturator sign, heel tap sign, Sanz's sign, Rovsing's sign or tenderness at McBurney's Point Extremities Exam Extremities exam: Present normal inspection and full ROM; Absent tenderness Back Exam Back exam: Present normal inspection and full ROM; Absent tenderness, CVA tenderness (R) or CVA tenderness (L) Neurological Exam Neurological exam: Present alert, oriented X3 and CN II-XII intact Psychiatric Psychiatric exam: Present normal affect and normal mood Skin Skin exam: Present warm, dry, intact and normal color Lymphatic Lymphatic Findings: no adenopathy Medical Decision Making Medical Records Medical records reviewed: No I reviewed the patient's medical records. Parish Inquiry Pt receiving controlled substance: No Vital Signs: 08/17/23 19:15 Temperature 97.8 F Temperature Source Oral Pulse Rate [Left Brachial] 90 Respiratory Rate 20 Blood Pressure [Left Arm] 143/96 H Blood Pressure Mean [Left Arm] 111 Blood Pressure Source [Left Arm] Automatic Cuff Blood Pressure Position [Left Arm] Sitting 02 Sat by Pulse Oximetry 96 Oxygen Delivery Method Room Air Orders (Tests/Meds): ORDERS Category Date Time Status KUB (single view) [XR KUB] Stat Exams 08/17/23 19:20 Ordered Radiology Data #1: Image(s): Abdomen Image Reviewed: Yes I reviewed the patient's radiology image and Yes I have reviewed radiologist's interpretation Preliminary Findings: Abnormal Accession No. : [id number] Patient Name / ID : KELSEA HEBERT / [id number] Exam Date : 08/17/2023 19:19:45 ( Final ) Study Comment : Sex / Age : F / 22Y Creator : JING ALICIA Dictator : Gate Agent : Tech Ed Teacher : JING ALICIA Approver2 : Report Date : 08/17/2023 19:47:54 My Comment : PROCEDURE INFORMATION: Exam: XR Abdomen Exam date and time: 08/17/2023 7:19 PM Age: 22 years old Clinical indication: Constipation; Additional info: Cant poop TECHNIQUE: Imaging protocol: Radiologic exam of the abdomen. Views: Frontal supine view of the abdomen. 1 View. COMPARISON: MR LUMBAR SPINE WO CON 06/29/2023 10:25 AM FINDINGS: Gastrointestinal tract: Mild to moderate stool within the distal colon and rectum. Nonobstructive bowel gas pattern. Bones/joints: No acute findings. IMPRESSION: Mild to moderate stool within the distal colon and rectum. Nonobstructive bowel gas pattern.
[2023-08-17 20:00] VITALS: BP 143/96; PULSE 90; RESP 20; TEMP 36.6; O2SAT 96
== END 2023-08-17 20:03 | disposition home or self-care (01) ==
PROVIDERS: Emergency Provider Nurse Practitioner Family; PCP Nurse Practitioner
DX: K59.00 Constipation, unspecified (principal)
CPT/HCPCS: 74018; 99212; 99214; G0463

== ENCOUNTER 2023-11-03 13:27 | Outpatient (CLI) | payer BC, SELFPAY ==
--- NOTE | 2023-11-03 | XR_ITS ---
FINAL REPORT CLINICAL HISTORY: BILAT HIP PAIN COMPARISON: None FINDINGS: LEFT HIP: Two views of the left hip demonstrate no acute fracture or dislocation. The joint spaces appear normal. The visualized bony structures are well aligned. No soft tissue abnormality is seen. IMPRESSION: No acute bony abnormality. Reviewed, Interpreted and Dictated by Marco Kidd III, MD Transcribed by Caitie Rodriguez Authenticated and [facility]
--- NOTE | 2023-11-03 | XR_ITS ---
FINAL REPORT CLINICAL HISTORY: PAIN COMPARISON: None FINDINGS: RIGHT HIP Two views of the right hip demonstrate no acute fracture or dislocation. The joint spaces appear normal. The visualized bony structures are well aligned. No soft tissue abnormality is seen. IMPRESSION: No acute bony abnormality. Reviewed, Interpreted and Dictated by Marco Kidd III, MD Transcribed by Caitie Rodriguez Authenticated and [facility]
--- OUTSIDE RECORDS SUMMARY | 2023-11-03 13:31 | XMS_ITS ---
Author Organization [facility] , [facility] Address [address] [place] [address] Phone Care Team Providers Care Slat Basket Maker Name Role Phone Cuong DAVIS, David Porter Unavailable [phone] HAWK LEYVA MD Unavailable [phone] Problems Includes: Active, inactive, and resolved Problems All Visits Onset Date Resolved Date Provider Condition S tatus Lower Back Pain 07/06/2023 David Hutchins MD Act sabino Last Documented On 4 9:35AM ; [facility], [facility] Plan of Treatment Instructions to patient Lose weight Last Documented On 4 11:04AM ; [facility], [facility] Lose weight Last Documented On 4 9:43AM ; [facility], [facility] Assessments Includes: Assessments for all patient encounters Findings Encounter Date Overweight Follow Up with David Hutchins MD 09/14/2023 Last Documented On 4 12:39PM ; [facility], [facility] Overweight Physician Specified with David Hutchins MD 07/06/2023 Last Documented On 4 2:57PM ; [facility], [facility] Instructions Includes: Instructions for all patient encounters Instructions to patient Lose weight Last Documented On 4 11:04AM ; [facility], [facility] Lose weight Last Documented On 4 9:43AM ; [facility] Medical Equipment - Implanted Devices Includes: Current and historical Devices No Medical Equipment Recorded Medications Includes: Current and historical Medications Current Medications (continue as prescribed) Meloxicam 15 MG Oral Tablet 10/20/2023 - 12/19/2023 Pr ovider: David Hutchins MD Diagnosis: Take one tablet my mouth once a day Last Documented On 4 8:34AM By Nicole Malloy ; [facility], [facility] busPIRone HCl 10 MG Oral Tablet 09/04/2023 Provider: Diagnosis: Last Documented On 4 11:04AM By Nicole Malloy ; [facility], [facility] Pantoprazole Sodium 20 MG Oral Tablet, enteric coated 08/31/2023 Provider: Diagnosis: Last Documented On 4 11:04AM By Nicole Malloy ; [facility], [facility] Furosemide 20 MG Oral Tablet 06/28/2023 Provider: Diagnosis: Last Documented On 4 9:36AM By Nicole Malloy ; [facility], [facility] Ozempic (1 MG/DOSE) 4 MG/3ML Subcutaneous Solution Pen-injector 06/26/2023 Provider: Valerie ROJAS RN Diagnosis: Last Documented On 4 9:36AM By Nicole Malloy ; [facility], [facility] Vyvanse 40 MG Oral Capsule 06/12/2023 Provider: Diagnosis: Last Documented On 4 9:36AM By Nicole Malloy ; [facility], [facility] Rexulti 2 MG Oral Tablet 06/10/2023 Provider: Diagnosis: Last Documented On 4 9:36AM By Nicole Malloy ; [facility], [facility] Sotalol HCl 160 MG Oral Tablet 02/22/2023 Provider: Diagnosis: Last Documented On 4 9:36AM By Nicole Malloy ; [facility], [facility] Past Medications on file Meloxicam 15 MG Oral Tablet 09/13/2023 - 10/19/2023 Pr ovider: David Hutchins MD Diagnosis: Last Documented On 4 3:34PM By Nicole Malloy ; [facility], [facility] Cyclobenzaprine HCl 10 MG Or al Tablet 07/06/2023 - 08/05/2023 Provider: David Hutchins MD Diagnosis: Take 1 tablet every 8 hrs pr n pain Take 1 tablet every 8 hrs prn muscle spasms Last Documented On 4 10:02AM By Nicole Malloy ; [facility], [facility] Meloxicam 15 MG Oral Tablet 07/06/2023 - 09/04/2023 Pr ovider: David Hutchins MD Diagnosis: Take one tablet my mouth once a day Last Documented On 4 10:02AM By Nicole Malloy ; [facility] busPIRone HCl 5 MG Oral Tablet 06/12/2023 - 09/14/2023 Provider: Diagnosis: Last Documented On 4 11:04AM By Nicole Malloy ; [facility] Medications Administered Includes: Administered Medications in patient's chart No Administered Medications Recorded Vital Signs Includes: Vital Signs from 11/02/2022 through 11/03/2023 Vital Name 09/14/2023 11:05A 07/06/2023 09: 43A Height (in) 71 71 Weight (lb) 434 434.4 Body Mass Index 60.5 60.6 Body Surface Area 2.9 2.9 Pain Level 5 7 Note: Last Documented: On 09/14/2023 11:05A M ; [facility] On 07/06/2023 9:43AM ; [facility] Results Includes: Results from 11/02/2022 through 11/03/2023 No Results Recorded For Specified Dates History of Present Illness History of Present Illness not supported for this document type No History of Present Illness Recorded Social History Description Last Updated Exercising regularly 07/06/2023 Last Documented On 4 2:57PM ; [facility] No caffeine use 07/06/2023 Last Documented On 4 2:57PM ; [facility] Not a current smoker. 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 Last Documented On 4 2:57PM ; [facility] Smoking Status Unknown Procedures and Surgical History Surgical History Last Updated Past Surgical History: sx on right leg x 2 07/06/2023 Last Documented On 4 2:57PM ; [facility] History of heart surgery 07/06/2023 Last Documented On 4 2:57PM ; [facility], [facility] Medical History Includes: Medical History in patient's chart Description Last Updated History of Heart Attack 07/06/2023 Last Documented On 4 2:57PM ; [facility], [facility] History of Stroke 07/06/2023 Last Documented On 4 2:57PM ; [facility] History of depression 07/06/2023 Last Documented On 4 2:57PM ; [facility] History of heart disease 07/06/2023 Last Documented On 4 2:57PM ; [facility] History of History of Heart Attack / Str gladys 07/06/2023 Last Documented On 4 2:57PM ; [facility] History of Irregular Heartbeat 4 Last Documented On 4 2:57PM ; [facility] History of Sleep Apnea 07/06/2023 Last Documented On 4 2:57PM ; [facility] Family History Includes: Family History in patient's chart Description Last Updated No significant family history 07/06/2023 Last Documented On 4 2:57PM ; [facility], [facility] Review of Systems Review of Systems not supported for this document type No Review of Systems Recorded Mental Status No Mental Status Recorded Functional Status No Functional Status Recorded Physical Exam Physical Exam not supported for this document type No Physical Exam Recorded Allergies Includes: Active, inactive, and resolved Allergies Substance Type Reaction Onset Date Resolved Date Statu s Robaxin Allergy Nausea, Vomiting 07/06/2023 Ac tive Last Documented On 4 9:38AM ; [facility] Lisinopril Allergy 07/06/2023 Active Last Documented On 4 9:39AM ; [facility] Cefprozil Allergy Nausea, Vomiting 07/06/2023 Ac tive Last Documented On 4 9:38AM ; [facility] Encounters Includes: Encounters from 11/02/2022 through 11/03/2023 Encounter Provider Location Date Check-In Time Check-Out Time Diagnosis [Patient Encounter] David Hutchins MD 10/20/19 24 09/14/2023 8:25AM 09/14/2023 11:59PM Follow Up David Hutchins MD [facility] 09/14/19 10:49AM 11:18AM Overweight Physician Specified David Hutchins MD [facility] 07/06/19 9:27AM 9:55AM Overweight Insurance Includes: Active Insurance Policies Plan Name Member ID Group # Subscriber Relationship Effect sabino Dates 1 - [facility] [id number] Daniela Murray Self Clinical Notes Includes: Signed Clinical Notes starting from 02/10/2022 * Progress note Date Encounter Last Documented by 07/06/2023 Physician Specified Last documen alissa on 08/16/2023; 2:57 PM, David Hutchins MD; [facility] Active Problems & Conditions - Lower [...] using drugs. Habits: Exercising regularly. 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 Allergies - Cefprozil Reaction: Nausea, Vomiting - [...] MRI was performed L-spine MRI 06/29/23 @ [facility]. Available previous imaging studies were reviewed [...] Care Team - HAWK LEYVA MD - [employer] Health Reminders - Assess BMI satisfied 07/06/2023. - Assess Tobacco Use satisfied 07/06/2023. - Follow Up Plan BMI Management satisfied 07/06/2023.
--- OUTSIDE RECORDS SUMMARY | 2023-11-03 13:31 | XMS_ITS ---
Care Plan - [facility], [facility] Created on: November 03, 2023 Trevor Daniela : 2000 Sex: Female Author Organization [facility] , [facility] Address [address] [place] [id number] Phone Care Team Providers Care Manufacturing Team Leader Name Role Phone Cuong DAVIS, David Porter Unavailable [phone] GORDON DAVIS, HAWK Kaba Unavailable [phone]
--- OUTSIDE RECORDS SUMMARY | 2023-11-03 13:31 | XMS_ITS | Clinical Summary ---
Author Organization [facility] , [facility] Address [address] [place] [address] Phone Care Team Providers Care Licensed Tax Consultant Name Role Phone Cuong DAVIS, David Porter Unavailable [phone] HAWK LEYVA MD Unavailable [phone] Reason for Visit and Chief Complaint The Chief Complaint is: low back pain Problems Includes: Problems addressed during this encounter and other active Problems Current Visit Onset Date Resolved Date Provider Remi bianchi Status Lower Back Pain 07/06/2023 David Hutchins MD Act sabino Last Documented On 4 9:35AM ; [facility] Plan of Treatment Instructions to patient Lose weight Last Documented On 4 11:04AM ; [facility] Assessments Includes: Assessments from this encounter Findings - Overweight - Last Documented On 09/14/2023 12:39PM ; [facility] Instructions Includes: Instructions from this encounter Instructions to patient Lose weight Last Documented On 4 11:04AM ; [facility] Medical Equipment - Implanted Devices Includes: Current Devices No Medical Equipment Recorded Medications Includes: Medications discussed during this encounter and other current Medications Discontinued / Stopped on this date on 06/12/2023 busPIRone HCl 5 MG Oral Tablet Provider: Diagnosis: Last Documented On 4 11:04AM By Nicole Malloy ; [facility], [facility] Current Medications (continue as prescribed) Meloxicam 15 MG Oral Tablet 10/20/2023 - 12/19/2023 Pr ovider: David Hutchins MD Diagnosis: Take one tablet my mouth once a day Last Documented On 4 8:34AM By Nicole Malloy ; [facility], [facility] busPIRone HCl 10 MG Oral Tablet 09/04/2023 Provider: Diagnosis: Last Documented On 4 11:04AM By Nicole Malloy ; [facility] Pantoprazole Sodium 20 MG Oral Tablet, enteric coated 08/31/2023 Provider: Diagnosis: Last Documented On 4 11:04AM By Nicole Malloy ; [facility], [facility] Furosemide 20 MG Oral Tablet 06/28/2023 Provider: Diagnosis: Last Documented On 4 9:36AM By Nicole Malloy ; [facility], [facility] Ozempic (1 MG/DOSE) 4 MG/3ML Subcutaneous Solution Pen-injector 06/26/2023 Provider: Valerie ROJAS RN Diagnosis: Last Documented On 4 9:36AM By Nicole Malloy ; [facility], [facility] Vyvanse 40 MG Oral Capsule 06/12/2023 Provider: Diagnosis: Last Documented On 4 9:36AM By Nicole Malloy ; [facility], [facility] Rexulti 2 MG Oral Tablet 06/10/2023 Provider: Diagnosis: Last Documented On 4 9:36AM By Nicole Malloy ; [facility], [facility] Sotalol HCl 160 MG Oral Tablet 02/22/2023 Provider: Diagnosis: Last Documented On 4 9:36AM By Nicole Malloy ; [facility], [facility] Past Medications on file Cyclobenzaprine HCl 10 MG Or al Tablet 07/06/2023 - 08/05/2023 Provider: David Hutchins MD Diagnosis: Take 1 tablet every 8 hrs pr n pain Take 1 tablet every 8 hrs prn muscle spasms Last Documented On 4 10:02AM By Nicole Malloy ; [facility] Meloxicam 15 MG Oral Tablet 07/06/2023 - 09/04/2023 Pr ovider: David Hutchins MD Diagnosis: Take one tablet my mouth once a day Last Documented On 4 10:02AM By Nicole Malloy ; [facility] Medications Administered Includes: Administered Medications from this encounter No Administered Medications Recorded Vital Signs Includes: Vital Signs from this encounter Vital Name 09/14/2023 11:05A Height (in) 71 Weight (lb) 434 Body Mass Index 60.5 Body Surface Area 2.9 Pain Level 5 Last Documented: On 09/14/2023 11:05A M ; [facility] Results Includes: Results discussed during this encounter No Results Recorded For Specified Dates History of Present Illness Includes: History of Present Illness from this encounter HPI Daniela Murray is a 22 year old female. - Allergy list reviewed - Problem list reviewed - Medication list reviewed - History of Chiropractic Core Chiropractic - - Review of medications documented Social History Description Last Updated Exercising regularly 07/06/2023 Last Documented On 4 11:04AM ; [facility] No caffeine use 07/06/2023 Last Documented On 4 11:04AM ; [facility] Not a current smoker. 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 Last Documented On 4 11:04AM ; [facility] Smoking Status Unknown Procedures and Surgical History Includes: Procedures from this encounter Procedures Code Diagnosis Performing Provider Service L ocation Service Date an X-ray was performed 15084 Last Documented On 4 11:04AM ; [facility] an MRI was performed L-spine MRI 06/29/23 @ [facility] [id number] Last Documented On 4 11:04AM ; [facility] Surgical History Last Updated Past Surgical History: sx on right leg x 2 ~Gastric sleeve 07/27/23 09/14/2023 Last Documented On 4 11:06AM ; [facility] History of heart surgery 07/06/2023 Last Documented On 4 11:04AM ; [facility] Medical History Includes: Medical History addressed during this encounter Description Last Updated History of Heart Attack 07/06/2023 Last Documented On 4 11:04AM ; [facility], [facility] History of Stroke 07/06/2023 Last Documented On 4 11:04AM ; [facility], [facility] History of depression 07/06/2023 Last Documented On 4 11:04AM ; [facility], [facility] History of heart disease 07/06/2023 Last Documented On 4 11:04AM ; [facility], [facility] History of History of Heart Attack / Str gladys 07/06/2023 Last Documented On 4 11:04AM ; [facility], [facility] History of Irregular Heartbeat 4 Last Documented On 4 11:04AM ; [facility] History of Sleep Apnea 07/06/2023 Last Documented On 4 11:04AM ; [facility], [facility] Family History Includes: Family History addressed during this encounter Description Last Updated No significant family history 07/06/2023 Last Documented On 4 11:04AM ; [facility], [facility] Review of Systems Includes: Review of [...] Last Documented On 4 9:38AM ; [facility] Lisinopril Allergy 07/06/2023 Active Last Documented On 4 9:39AM ; [facility] Cefprozil Allergy Nausea, Vomiting 07/06/2023 Ac tive Last Documented On 4 9:38AM ; [facility] Encounters Encounter Provider Location Date Check-In Time Check-Out Time Diagnosis Follow Up David Hutchins MD [facility] 4 10:49AM 11:18AM Overweight Insurance Includes: Active Insurance Policies Plan Name Member ID Group # Subscriber Relationship Effect sabino Dates - [facility] [id number] Daniela Murray Self Clinical Notes Includes: Clinical Notes from this encounter No Clinical Notes Recorded
--- OUTSIDE RECORDS SUMMARY | 2023-11-03 13:31 | XMS_ITS | Clinical Summary ---
Author Organization [facility] , [facility] Address [address] [place] [address] Phone Care Team Providers Care Engraver Letter Name Role Phone Cuong DAVIS, David Porter Unavailable [phone] GORDON DAVIS, HAWK Kaba Unavailable [phone] Reason for Visit and Chief Complaint [Patient Encounter] Problems Includes: Problems addressed during this encounter and other active Problems All Visits Onset Date Resolved Date Provider Condition S tatus Lower Back Pain 07/06/2023 David Hutchins MD Act sabino Last Documented On 4 9:35AM ; [facility] Plan of Treatment No Plan of Treatment Recorded Assessments Includes: Assessments from this encounter No Assessments Recorded Medical Equipment - Implanted Devices Includes: Current Devices No Medical Equipment Recorded Medications Includes: Medications discussed during this encounter and other current Medications New / Renewed during this visit David Hutchins MD on 10/20/2023 Meloxicam 15 MG Oral Tablet Provider: David Hutchins MD 30 day supply: 30 tablet, 1 refills Diagnosis: Take one tablet my mouth once a day Pharmacy: [facility] [phone], [address] - Last Documented On 4 8:34AM By Nicole Malloy ; [facility] Current Medications (continue as prescribed) busPIRone HCl 10 MG Oral Tablet 09/04/2023 Provider: Diagnosis: Last Documented On 4 11:04AM By Nicole Malloy ; [facility] Pantoprazole Sodium 20 MG Oral Tablet, enteric coated 08/31/2023 Provider: Diagnosis: Last Documented On 4 11:04AM By Nicole [facility], [facility] Furosemide 20 MG Oral Tablet 06/28/2023 Provider: Diagnosis: Last Documented On 4 9:36AM By Nicole Malloy ; [facility], [facility] Ozempic (1 MG/DOSE) 4 MG/3ML Subcutaneous Solution Pen-injector 06/26/2023 Provider: Valerie ROJAS RN Diagnosis: Last Documented On 4 9:36AM By Nicole Malloy ; [facility], [facility] Vyvanse 40 MG Oral Capsule 06/12/2023 Provider: Diagnosis: Last Documented On 4 9:36AM By Nicole Malloy ; [facility], [facility] Rexulti 2 MG Oral Tablet 06/10/2023 Provider: Diagnosis: Last Documented On 4 9:36AM By Nicole Malloy ; [facility], [facility] Sotalol HCl 160 MG Oral Tablet 02/22/2023 Provider: Diagnosis: Last Documented On 4 9:36AM By Nicole Malloy ; [facility], [facility] Medications Administered Includes: Administered Medications from this encounter No Administered Medications Recorded Results Includes: Results discussed during this encounter No Results Recorded For Specified Dates History of Present Illness Includes: History of Present Illness from this encounter No History of Present Illness Recorded Social History No Social History Recorded - Smoking Status Unknown Medical History Includes: Medical History addressed during this encounter No Medical History Recorded Family History Includes: Family History addressed during this encounter No Family History Recorded Review of Systems Includes: Review of Systems from this encounter No Review of Systems Recorded Mental Status Includes: Mental Status from this encounter No Mental Status Recorded Functional Status Includes: Functional Status from this encounter No Functional Status Recorded Physical Exam Includes: Physical Exam from this encounter No Physical Exam Recorded Allergies Includes: Active Allergies Substance Type Reaction Onset Date Resolved Date Statu s Robaxin Allergy Nausea, Vomiting 07/06/2023 Ac tive Last Documented On 4 9:38AM ; [facility], [facility] Lisinopril Allergy 07/06/2023 Active Last Documented On 4 9:39AM ; [facility], [facility] Cefprozil Allergy Nausea, Vomiting 07/06/2023 Ac tive Last Documented On 4 9:38AM ; [facility], [facility] Encounters Encounter Provider Location Date Check-In Time Check-Out Time Diagnosis [Patient Encounter] David Hutchins MD 10/20/2023 8:25AM 11:59PM Insurance Includes: Active Insurance Policies Plan Name Member ID Group # Subscriber Relationship Effect sabino Dates 1 - [facility] [id number] Daniela Murray Self Clinical Notes Includes: Clinical Notes from this encounter No Clinical Notes Recorded
--- OUTSIDE RECORDS SUMMARY | 2023-11-03 13:31 | XMS_ITS | Clinical Summary ---
Author Organization [facility] , [facility] Address [address] [place] [address] Phone Care Team Providers Care Poultry Raiser Name Role Phone Cuong DAVIS, David Porter Unavailable [phone] HAWK LEYVA MD Unavailable [phone] Reason for Visit and Chief Complaint The Chief Complaint is: low back pain Problems Includes: Problems addressed during this encounter and other active Problems Current Visit Onset Date Resolved Date Provider Remi bianchi Status Lower Back Pain 07/06/2023 David Hutchins MD Act sabino Last Documented On 4 9:35AM ; [facility] Plan of Treatment Pending Tests Order Diagnosis Results Due Ordering P rovider Therapy - Physical Therapy Lumbar Low back pain, unspecified 07/06/23 David Hutchins MD Last Documented On 4 2:57PM ; [facility] Instructions to patient Lose weight Last Documented On 4 9:43AM ; [facility] Assessments Includes: Assessments from this encounter Findings - Overweight - Last Documented On 08/16/2023 2:57PM ; [facility] Instructions Includes: Instructions from this encounter Instructions to patient Lose weight Last Documented On 4 9:43AM ; [facility] Medical Equipment - Implanted Devices Includes: Current Devices No Medical Equipment Recorded Medications Includes: Medications discussed during this encounter and other current Medications New / Renewed during this visit David Hutchins MD on 07/06/2023 Cyclobenzaprine HCl 10 MG Or al Tablet Provider: David Hutchins MD 30 day supply: 90 tablet, 0 refills Diagnosis: Take 1 tablet every 8 hrs pr n pain Take 1 tablet every 8 hrs prn muscle spasms Pharmacy: [facility] [address], [address] - Last Documented On 4 10:02AM By Nicole Malloy ; [facility] Meloxicam 15 MG Oral Tablet Provider: David Hutchins MD 30 day supply: 30 tablet, 1 refills Diagnosis: Take one tablet my mouth once a day Pharmacy: [facility] [phone], [address] - Last Documented On 4 10:02AM By Nicole Malloy ; [facility] Current Medications (continue as prescribed) Meloxicam 15 MG Oral Tablet 10/20/2023 - 12/19/2023 Pr ovider: David Hutchins MD Diagnosis: Take one tablet my mouth once a day Last Documented On 4 8:34AM By Nicole Malloy ; [facility] busPIRone HCl 10 MG Oral Tablet 09/04/2023 Provider: Diagnosis: Last Documented On 4 11:04AM By Nicole Malloy ; [facility] Pantoprazole Sodium 20 MG Oral Tablet, enteric coated 08/31/2023 Provider: Diagnosis: Last Documented On 4 11:04AM By Nicole Malloy ; [facility] Furosemide 20 MG Oral Tablet 06/28/2023 Provider: Diagnosis: Last Documented On 4 9:36AM By Nicole Malloy ; [facility] Ozempic (1 MG/DOSE) 4 MG/3ML Subcutaneous Solution Pen-injector 06/26/2023 Provider: Valerie ROJAS RN Diagnosis: Last Documented On 4 9:36AM By Nicole Malloy ; [facility] Vyvanse 40 MG Oral Capsule 06/12/2023 Provider: Diagnosis: Last Documented On 4 9:36AM By Nicole Malloy ; [facility] Rexulti 2 MG Oral Tablet 06/10/2023 Provider: Diagnosis: Last Documented On 4 9:36AM By Nicole Malloy ; [facility] Sotalol HCl 160 MG Oral Tablet 02/22/2023 Provider: Diagnosis: Last Documented On 4 9:36AM By Nicole Malloy ; [facility] Medications Administered Includes: Administered Medications from this encounter No Administered Medications Recorded Vital Signs Includes: Vital Signs from this encounter Vital Name 07/06/2023 09:43A Height (in) 71 Weight (lb) 434.4 Body Mass Index 60.6 Body Surface Area 2.9 Pain Level 7 Note: lc Last Documented: On 07/06/2023 9:43AM ; [facility] Results Includes: Results discussed during this encounter [...] 07/06/2023 Last Documented On 4 2:57PM ; [facility] No caffeine use 07/06/2023 Last Documented On 4 2:57PM ; [facility] Not a current smoker. 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 Last Documented On 4 2:57PM ; [facility] Smoking Status Unknown Procedures and Surgical History Includes: Procedures from this encounter Procedures Code Diagnosis Performing Provider Service L ocation Service Date an X-ray was performed 70368 Last Documented On 4 9:41AM ; [facility] an MRI was performed L-spine MRI 06/29/23 @ [facility] 76 [id number] Last Documented On 4 9:41AM ; [facility] Surgical History Last Updated Past Surgical History: sx on right leg x 2 07/06/2023 Last Documented On 4 2:57PM ; [facility] History of heart surgery 07/06/2023 Last Documented On 4 2:57PM ; [facility], [facility] Medical History Includes: Medical History addressed during this encounter Description Last Updated History of Heart Attack 07/06/2023 Last Documented On 4 2:57PM ; [facility] History of Stroke 07/06/2023 Last Documented On 4 2:57PM ; [facility] History of depression 07/06/2023 Last Documented On 4 2:57PM ; [facility] History of heart disease 07/06/2023 Last Documented On 4 2:57PM ; [facility] History of History of Heart Attack / Str gladys 07/06/2023 Last Documented On 4 2:57PM ; [facility] History of Irregular Heartbeat 4 Last Documented On 4 2:57PM ; [facility] History of Sleep Apnea 07/06/2023 Last Documented On 4 2:57PM ; [facility], [facility] Family History Includes: Family History addressed during this encounter Description Last Updated No significant family history 07/06/2023 Last Documented On 4 2:57PM ; [facility], [facility] Review of Systems Includes: Review of [...] tive Last Documented On 4 9:38AM ; [facility] Lisinopril Allergy 07/06/2023 Active Last Documented On 4 9:39AM ; [facility] Cefprozil Allergy Nausea, Vomiting 07/06/2023 Ac tive Last Documented On 4 9:38AM ; [facility] Encounters Encounter Provider Location Date Check-In Time Check-Out Time Diagnosis Physician Specified David Hutchins MD [facility] 07/06/19 24 9:27AM 9:55AM Overweight Insurance Includes: Active Insurance Policies Plan Name Member ID Group # Subscriber Relationship Effect sabino Dates - [facility] [id number] Daniela Murray Self Clinical Notes Includes: Clinical Notes from this encounter * Progress note Date Encounter Last Documented by 07/06/2023 Physician Specified Last densiha maxwell on 08/16/2023; 2:57 PM, David Hutchins MD; [facility] Active Problems & Conditions - Lower Back [...] using drugs. Habits: Exercising regularly. 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 Allergies - Cefprozil Reaction: Nausea, Vomiting - [...] MRI was performed L-spine MRI 06/29/23 @ [facility]. Available previous imaging studies were reviewed [...] Care Team - HAWK LEYVA MD - MARKETING PRODUCTION COORDINATOR Health Reminders - Assess BMI satisfied 07/06/2023. - Assess Tobacco Use satisfied 07/06/2023. - Follow Up Plan BMI Management satisfied 07/06/2023.
== END 2023-11-03 23:59 | disposition home or self-care (01) ==
LOC: RAD 13:29
PROVIDERS: PCP Family Medicine; Visit Provider Nurse Practitioner
DX: M25.552 Pain in left hip (principal); M25.551 Pain in right hip
CPT/HCPCS: 73502

== ENCOUNTER 2023-12-11 10:00 | Outpatient (CLI) | payer BC, SELFPAY ==
[2023-12-11 10:42] LABS: Basophils # 0.1 K/mm3 (0-0.2); Basophils % 1.2 % (0.1-2.0); Eosinophils # 0.2 K/mm3 (0.0-0.4); Hematocrit 43.4 % (37.0-47.0); Hemoglobin 14.9 g/dL (12.2-16.2); Lymphocytes # 1.2 K/mm3 (0.7-4.5); Lymphocytes % 29.9 % (10-50); Mean Corpuscular HGB Conc 34.3 g/dL (31.8-35.4); Mean Corpuscular Volume 90.4 fl (81-99); Mean Platelet Volume 8.4 fl (7.4-10.4); Monocytes # 0.5 K/mm3 (0.1-1.0); Neutrophils # 2.2 K/mm3 (1.8-7.8); Neutrophils % 53.9 % (37.0-80.0); Platelet Count 180 K/mm3 (142-424); Red Cell Distribution Width 13.8 % (11.5-17.5); White Blood Count 4.1 K/mm3 (4.8-10.8)
[2023-12-11 10:50] LABS: Chloride 114 mmol/L (98-107); Potassium 4.1 mmoL/L (3.5-5.1); Sodium 143 mmol/L (136-145)
[2023-12-11 10:52] LABS: Blood Urea Nitrogen 14 mg/dl (7-17); Estimated Glomerular Filt Rate 102 ml/min (>60); GFR (African American) 123 ML/MIN (>60)
[2023-12-11 10:53] LABS: Alanine Aminotransferase 22 U/L (12-78); Albumin/Globulin Ratio 1.4 (1.1-1.8); Alkaline Phosphatase 72 U/L (38-126); Anion Gap 8.1 mEq/L (5-15); Aspartate Amino Transferase 28 U/L (14-36); Calcium 9.9 mg/dl (8.4-10.2); Carbon Dioxide 25 mmol/L (22.0-30.0); Cholesterol 102 mg/dl (140-200); Globulin 2.9 g/dL (1.3-3.2); Glucose 92 mg/dl (74-100); HDL Cholesterol 23 mg/dl (40-60); Total Protein,Serum 6.9 g/dl (6.3-8.2); Triglycerides 59 mg/dl (30-150); VLDL Cholesterol 12 mg/dL (0-40)
[2023-12-11 10:54] LABS: Chol/HDL Ratio 4.4 (1-3.5)
[2023-12-11 11:04] LABS: Direct LDL Cholesterol 62.16 mg/dL (100-129)
[2023-12-11 11:08] LABS: Free T4 (Free Thyroxine) 1.16 ng/dl (0.78-2.19)
[2023-12-11 11:23] LABS: Thyroid Stimulating Hormone < 0.02 uIU/mL (0.465-4.68)
[2023-12-11 11:24] LABS: Hemoglobin A1C 4.4 % (4.0-6.0)
[2023-12-11 14:46] LABS: HIV (1&2) Antibody Rapid NONREACTIVE (NONREACTIVE)
[2023-12-12 08:19] LABS: HCV Ab Non Reactive (Non Reactive)
[2023-12-12 12:20] LABS: Rapid Plasma Reagin Ab Titer Non Reactive titer (NonRea<1:1)
== END 2023-12-11 23:59 | disposition home or self-care (01) ==
LOC: LAB 10:01
PROVIDERS: PCP Nurse Practitioner; Visit Provider Nurse Practitioner Obstetrics & Gynecology
DX: Z79.899 Other long term (current) drug therapy (principal)
CPT/HCPCS: 36415; 80050; 80053; 80061; 83036; 84439; 84443; 85025; 86593; 86803; 87389

== ENCOUNTER 2024-03-21 07:55 | Outpatient (CLI) | payer BC, SELFPAY ==
--- NOTE | 2024-03-21 07:58 | US_ITS ---
PROCEDURE INFORMATION: Exam: US Right Breast, Complete US Left Breast, Complete Exam date and time: 03/21/2024 8:28 AM Age: 23 years old Clinical indication: Region of palpable concern in both breasts. TECHNIQUE: Imaging protocol: Complete ultrasound of all four quadrants of the right breast and the retroareolar regions, including ultrasound of the axilla when performed. Complete ultrasound of all four quadrants of the left breast and the retroareolar regions, including ultrasound of the axilla when performed. COMPARISON: US BREAST RT COMPLETE 03/21/2024 8:28 AM FINDINGS: ULTRASOUND: Breast ultrasound findings: Right breast ultrasound: No sonographic abnormality in the upper-outer quadrant concern. No solid or cystic lesions. No abnormal shadowing, distortion or skin thickening. No abnormal lymph nodes seen in the axilla. Left breast ultrasound: Parallel circumscribed echogenic focus at 11 o'clock 9 cm from the nipple measuring 0.6 x 0.4 x 0.3 cm site of palpable concern, possibly a lipoma or edema. No abnormal shadowing, distortion or skin thickening. No abnormal lymph nodes seen in the axilla. IMPRESSION: 1. No sonographic finding to explain the region of palpable concern in the right breast. Recommend clinical follow-up. 2. Subcentimeter echogenic focus at the site of palpable concern left breast at 11 o'clock, possibly a lipoma or edema related to trauma. Recommend six-month follow-up left breast ultrasound to ensure stability. ASSESSMENT: BI-RADS Category 3: Probably benign.
== END 2024-03-21 23:59 | disposition home or self-care (01) ==
LOC: RAD 07:56
PROVIDERS: PCP Nurse Practitioner; Visit Provider Nurse Practitioner
DX: N63.11 Unspecified lump in the right breast, upper outer quadrant (principal); N63.22 Unspecified lump in the left breast, upper inner quadrant
CPT/HCPCS: 76641

== ENCOUNTER 2024-03-23 21:17 | Emergency (ER) | payer BC, SELFPAY ==
[2024-03-23 21:31] VITALS: BP 116/61; PULSE 66; RESP 20; TEMP 36.6; O2SAT 98; BMI 50.2
[2024-03-23 22:01] VITALS: BP 110/51; PULSE 64; O2SAT 98
--- NOTE | 2024-03-23 22:25 | CT_ITS ---
PROCEDURE INFORMATION: Exam: CT Abdomen And Pelvis With Contrast Exam date and time: 03/23/2024 11:49 PM Age: 23 years old Clinical indication: Abdominal pain; Additional info: Situse inversus, sleeve, upper abd pain l>r TECHNIQUE: Imaging protocol: Computed tomography of the abdomen and pelvis with contrast. Radiation optimization: All CT scans at this facility use at least one of these dose optimization techniques: automated exposure control; mA and/or kV adjustment per patient size (includes targeted exams where dose is matched to clinical indication); or iterative reconstruction. Contrast material: ISOVUE; Contrast volume: 75 ml; Contrast route: IV; COMPARISON: CR XR HIP LT 2-3V W/PELVIS 11/03/2023 1:44 PM FINDINGS: Heart: Small suspected left ventricular aneurysm, incompletely imaged. This appears to have calcification and thrombus. Liver: 9 mm possible hepatic hemangioma. Gallbladder and biliary ducts: Normal. No calcified stones. No ductal dilation. Pancreas: Normal. No ductal dilation. Spleen: Normal. No splenomegaly. Adrenal glands: Normal. No mass. Kidneys and ureters: Normal. No hydronephrosis. Stomach and bowel: Gastric sleeve. Appendix: No evidence of appendicitis. Intraperitoneal space: Unremarkable. No free air. No significant fluid collection. Vasculature: Unremarkable. No abdominal aortic aneurysm. Lymph nodes: Unremarkable. No enlarged lymph nodes. Urinary bladder: Unremarkable as visualized. Reproductive: Unremarkable as visualized. Bones/joints: Unremarkable. No acute fracture. Soft tissues: Unremarkable. Other findings: Situs inversus. IMPRESSION: Small suspected left ventricular aneurysm. No additional acute finding.
--- NOTE | 2024-03-23 22:28 | ECG_ITS ---
APPROVED REPORT Exam: Resting ECG HR:63 bpm ECG Measurements Heart Rate 63 AXES MT 124 P 120 QRSd 123 QRS 48 QT 455 T 156 QTc 463 Conclusion ECTOPIC ATRIAL RHYTHM MODERATE INTRAVENTRICULAR CONDUCTION DELAY [110+ ms QRS DURATION] ST DEVIATION AND MODERATE T-WAVE ABNORMALITY, CONSIDER LATERAL ISCHEMIA [-0.1+ mV T-WAVE IN I/aVL/V5/V6] Patient has situs inversus, this complicates interpretation. Importantly there are no reciprocal changes, no STEMI Electronically signed by : LANRE SCHMITT, 03/24/2024 06:42:37
--- NOTE | 2024-03-23 22:28 | ED_ITS ---
Discharge Plan Disposition Patient Disposition: Xfer Short-Term Hosp Prescriptions Prescriptions: No Action meloxicam 15 mg tablet PO DAILY Patient Comments: TAKE 1 TABLET BY MOUTH ONCE DAILY furosemide 20 mg tablet PO PRN Patient Comments: TAKE 1 TABLET BY MOUTH ONCE DAILY NEEDED FOR EDEMA ondansetron 4 mg tablet,disintegrating PO PRN medroxyprogesterone 150 mg/mL suspension 150 mg IM [id number] Qty: 1 3RF buspirone 15 mg tablet PO Patient Comments: TAKE 1/2 (ONE-HALF) TABLET BY MOUTH ONCE DAILY FOR 7 DAYS THEN INCREASE TO ONE TABLET BY MOUTH TWICE DAILY Rexulti 3 mg tablet PO Patient Comments: TAKE 1 TABLET BY MOUTH ONCE DAILY Sotylize 5 mg/mL solution 160 mg PO BID tramadol 50 mg tablet 50 mg PO PRN Patient Comments: TAKE 1 TABLET BY MOUTH EVERY 6 HOURS NEEDED FOR 10 DAYS Referrals Follow up/Referrals: Amy (ED),GILMA Padilla [Primary Care Provider] - See instructions Clinical Impressions Clinical Impression: Abdominal pain, Pancreatitis, Aneurysm of left ventricle of heart Instructions Patient Instructions: DI for Acute Abdominal Pain Print Language Print Language: Uzbek Discharge ED Provider: Duncan Devlin General Adult HPI <Duncan Devlin MD - Last Filed: 03/23/24 23:14> General Chief complaint: Abdominal Pain Stated complaint: abdominal pain Time Seen by Provider: 03/23/24 21:50 Mode of Arrival: Ambulatory Source of Information: Patient Limitations: No Limitations Description of Symptoms (Recalled from ER Triage Doc. by RN): abdominal pain since eating History of Present Illness HPI narrative: Patient is a 23-year-old female with complex past medical history including situs inversus, congenital heart disease status post multiple heart surgeries, gastric sleeve surgery within the last year who presents emergency department for evaluation abdominal pain. Patient ate a meal including tater tot casserole when she began feeling pain in her left upper quadrant and right upper quadrant. It was moderate to severe in intensity and has eased significantly prior to my evaluation. No vomiting. No chest pain. The abdominal pain did wrap around to her back. Does not have periods regularly as she is on the Depo shot. No other surgical abdominal history besides a sleeve. No other acute complaints at this time Related Data Home Medications ?Medication ?Instructions ?Recorded ?Confirmed furosemide 20 mg tablet mg PO PRN 08/28/23 02/05/24 meloxicam 15 mg tablet mg PO DAILY 08/28/23 02/05/24 ondansetron 4 mg disintegrating mg PO PRN 08/28/23 02/05/24 tablet tramadol 50 mg tablet 50 mg PO PRN 11/13/23 02/05/24 brexpiprazole 3 mg tablet (Rexulti) mg PO 02/05/24 02/05/24 buspirone 15 mg tablet mg PO 02/05/24 02/05/24 sotalol 5 mg/mL oral solution 160 mg PO BID 02/05/24 02/05/24 (Sotylize) Previous Rx's ?Medication ?Instructions ?Recorded medroxyprogesterone 150 mg/mL 150 mg IM [id number] #1 mL 08/28/23 intramuscular suspension Allergies Allergy/AdvReac Type Severity Reaction Status Date / Time lisinopril Allergy Mild Cough Verified 02/05/24 13:07 cefprozil (From Cefzil) Allergy Verified 02/05/24 13:07 Cephalosporins Allergy Verified 02/05/24 13:07 esmolol Allergy Verified 02/05/24 13:07 methocarbamol (From Robaxin) Allergy Verified 02/05/24 13:07 PFSH <Duncan Devlin MD - Last Filed: 03/23/24 23:14> [facility] Disclaimer: The information contained in this section may have been updated after the patient was seen, as this information can be updated by other users. Medical History (Updated 03/24/24 @ 01:09 by uLcy Lassiter MD) Fracture of right lower leg Thyroid disease Urinary tract infection Migraine History of heart attack Surgical History (Updated 08/28/23 @ 14:41 by CYNDI Turner) H/O gastric sleeve History of cardiac radiofrequency ablation History of open heart surgery History of cardiac catheterization Family History Other No significant family history Social History Smoking Status: Never smoker alcohol intake: never substance use type: denies use current occupational status: unemployed Travel in the last 8 weeks: None housing: house caffeine: No Have you lived/traveled outside [place] in past 30 days?: No Contact w/someone who lives/traveled outside US past 30 days?: No Exposure to someone with infectious disease in past 14 days?: No Do you have a fever (greater than 100.4 F or 38 C)?: No Have you tested positive for COVID-19: No Exposed to someone with COVID-19 in past 14 days?: No Do you have a sore throat?: No Do you have a cough?: No Do you have any weakness?: No Do you have any diarrhea?: No Are you experiencing any unusual bleeding?: No Do you have any muscle aches/pain?: No Do you have any abdominal pain?: No Are you experiencing loss of taste or smell?: No Other Medical History Have you received the Flu Vaccine for this season: No Have you received the Pneumonia Vaccine: No <Duncan Devlin MD - Last Filed: 03/23/24 23:14> ROS Obtained: Yes Systems reviewed as appropriate & no additional complaints except as documented Physical Exam <Duncan Devlin MD - Last Filed: 03/23/24 23:14> General General appearance: alert and in no apparent distress Head Head exam: atraumatic and normocephalic Eye Eye exam: Present PERRL ENT ENT exam: Present mucous membranes moist Neck Neck exam: Present normal inspection Chest Chest inspection: Present normal inspection and symmetric chest wall rise Respiratory Respiratory exam: Absent respiratory distress Cardiovascular Cardiovascular exam: Present regular rate and normal rhythm Abdominal Exam Abdominal exam: Present soft; Absent tenderness or guarding Extremities Exam Extremities exam: Present normal inspection Neurological Exam Neurological exam: Present alert Psychiatric Psychiatric exam: Present normal affect Skin Skin exam: Present warm and dry Medical Decision Making <Duncan Devlin MD - Last Filed: 03/23/24 23:14> Medical Records Screening: Per USPSTF and CDC recommendations, given the prevalence of disease in our region, it is our hospital?s policy to screen for HIV and viral Hepatitis for all patients aged 18 and over and those with ongoing risk factors. Parish Inquiry Pt receiving controlled substance: No Vital Signs: 03/23/24 21:31 03/23/24 22:01 03/23/24 22:31 Temperature 97.9 F Temperature Source Oral Pulse Rate 64 78 Pulse Rate [Right Brachial] 66 Respiratory Rate 20 Blood Pressure 110/51 L 126/65 Blood Pressure [Right Arm] 116/61 Blood Pressure Mean [Right Arm] 79 Blood Pressure Source [Right Arm] Manual Cuff/ Doppler Blood Pressure Position [Right Arm] Sitting 02 Sat by Pulse Oximetry 98 98 96 Oxygen Delivery Method Room Air Lab Data Lab Results 03/23/24 21:35: Urine Color Yellow, Urine Appearance Clear, Urine pH 5.5, Ur Specific [place] >= 1.030, Urine Protein Negative, Urine Glucose (UA) Negative, Urine Ketones Trace, Urine Blood Negative, Urine Nitrate Negative, Urine Bilirubin 1+ A, Urine Urobilinogen 0.2, Ur Leukocyte Esterase Negative, Urine RBC None, Urine WBC 5-10, Ur Squamous Epith Cells 5-10, Urine Bacteria 1+ 03/23/24 23:01: WBC 9.5, RBC 4.65, Hgb 13.8, Hct 41.7, MCV 89.7, MCH 29.7, MCHC 33.1, RDW 13.1, Plt Count 215, MPV 10.8 H, Neut % (Auto) 76.5, Lymph % (Auto) 14.5, Hardy % (Auto) 6.3, Eos % (Auto) 2.2, Baso % (Auto) 0.3, Neut # (Auto) 7.3, Lymph # (Auto) 1.4, Hardy # (Auto) 0.6, Eos # (Auto) 0.2, Baso # (Auto) 0.0, Sodium 143, Potassium 4.3, Chloride 110 H, Carbon Dioxide 24, Anion Gap 13.3, B UN 19 H, Creatinine 0.80, Estimated Creat Clear 120, Estimated GFR 87, Est GFR ( Amer) 106, Glucose 74, Calcium 9.4, Total Bilirubin 0.7, AST 44 H, ALT 35, Alkaline Phosphatase 85, Troponin I < 0.01, Total Protein 7.1, Albumin 4.1, Globulin 3.0, Albumin/Globulin Ratio 1.4, Lipase 569 H, Serum HCG, Qual Negative 03/23/24 23:01 03/23/24 23:01 Orders (Tests/Meds): ED MEDICATIONS Generic Name Dose Route Start Last Admin Trade Name Freq PRN Reason Stop Dose Admin Sodium Chloride 10 ml 03/23/24 23:55 03/23/24 23:55 Sodium Chloride 0.9% 10ml Syr (Rad Only) IV 04/22/24 23:54 10 ml NEEDED PRN Administration Maintain IV Site Discontinued Medications Generic Name Dose Route Start Last Admin Trade Name Shelly PRN Reason Stop Dose Admin Iopamidol 75 ml 03/23/24 23:55 03/23/24 23:55 Iopamidol-370 (76%);100ml Bottle IV 03/23/24 23:56 75 ml ONCE ONE Administration ORDERS Category Date Time Status CT abdomen pelvis w con Stat Cat Scan 03/23/24 22:25 Completed CBC w/Auto Diff [Complete Blood Count Auto Diff] Stat Lab 03/23/24 23:01 Completed CMP [Comprehensive Metabolic Panel] Stat Lab 03/23/24 23:01 Completed HCG Qualitative, Serum Stat Lab 03/23/24 23:01 Completed HIV Combo Routine Lab 03/23/24 23:01 Received Hepatitis C Ab Qual. W/ RFX Routine Lab 03/23/24 23:01 Received Lipase Stat Lab 03/23/24 23:01 Completed Trop I [Troponin I] Stat Lab 03/23/24 23:01 Completed UA [Urinalysis and Microscopic] Stat Lab 03/23/24 21:35 Completed EKG Request [ECG Request] Stat Y 03/23/24 22:28 Ordered Medical Decision Narrative: In summary patient is a 23-year-old female with past medical history described above who presents emergency department for evaluation of abdominal pain in the setting of situs inversus, previous gastric sleeve, congenital heart disease status post surgical intervention. Patient is hemodynamically stable nontoxic- appearing upon arrival, afebrile. Upon my evaluation her pain is completely subsided and is 0 out of 10. It may be that she has gas mediated pain from her sleeve given her stomach small volume. However differential includes pancreatitis, cholecystitis, sleep dehiscence, among others. Workup will be conducted with hematologic labs, CT abdomen pelvis IV contrast, EKG, troponin. Initial medications will be deferred given that she is currently pain-free. Initial hematologic labs reviewed by me, no significant leukocytosis or anemia, urinalysis interpreted by me and not consistent with infection, remainder of hematologic labs and imaging is pending at time of transition of care to the oncoming physician, Dr. Lassiter. <Lucy Lassiter MD - Last Filed: 03/24/24 01:11> Vital Signs: 03/23/24 21:31 03/23/24 22:03/23/24 22:31 Temperature 97.9 F Temperature Source Oral Pulse Rate 64 78 Pulse Rate [Right Brachial] 66 Respiratory Rate 20 Blood Pressure 110/51 L 126/65 Blood Pressure [Right Arm] 116/61 Blood Pressure Mean [Right Arm] 79 Blood Pressure Source [Right Arm] Manual Cuff/ Doppler Blood Pressure Position [Right Arm] Sitting 02 Sat by Pulse Oximetry 98 98 96 Oxygen Delivery Method Room Air Lab Data Lab Results 03/23/24 21:35: Urine Color Yellow, Urine Appearance Clear, Urine pH 5.5, Ur Specific [place] >= 1.030, Urine Protein Negative, Urine Glucose (UA) Negative, Urine Ketones Trace, Urine Blood Negative, Urine Nitrate Negative, Urine Bilirubin 1+ A, Urine Urobilinogen 0.2, Ur Leukocyte Esterase Negative, Urine RBC None, Urine WBC 5-10, Ur Squamous Epith Cells 5-10, Urine Bacteria 1+ 03/23/24 23:01: WBC 9.5, RBC 4.65, Hgb 13.8, Hct 41.7, MCV 89.7, MCH 29.7, MCHC 33.1, RDW 13.1, Plt Count 215, MPV 10.8 H, Neut % (Auto) 76.5, Lymph % (Auto) 14.5, Hardy % (Auto) 6.3, Eos % (Auto) 2.2, Baso % (Auto) 0.3, Neut # (Auto) 7.3, Lymph # (Auto) 1.4, Hardy # (Auto) 0.6, Eos # (Auto) 0.2, Baso # (Auto) 0.0, Sodium 143, Potassium 4.3, Chloride 110 H, Carbon Dioxide 24, Anion Gap 13.3, B UN 19 H, Creatinine 0.80, Estimated Creat Clear 120, Estimated GFR 87, Est GFR ( Amer) 106, Glucose 74, Calcium 9.4, Total Bilirubin 0.7, AST 44 H, ALT 35, Alkaline Phosphatase 85, Troponin I < 0.01, Total Protein 7.1, Albumin 4.1, Globulin 3.0, Albumin/Globulin Ratio 1.4, Lipase 569 H, Serum HCG, Qual Negative Orders (Tests/Meds): ED MEDICATIONS Generic Name Dose Route Start Last Admin Trade Name Freq PRN Reason Stop Dose Admin Sodium Chloride 10 ml 03/23/24 23:55 03/23/24 23:55 Sodium Chloride 0.9% 10ml Syr (Rad Only) IV 04/22/24 23:54 10 ml NEEDED PRN Administration Maintain IV Site Discontinued Medications Generic Name Dose Route Start Last Admin Trade Name Shelly PRN Reason Stop Dose Admin Iopamidol 75 ml 03/23/24 23:55 03/23/24 23:55 Iopamidol-370 (76%);100ml Bottle IV 03/23/24 23:56 75 ml ONCE ONE Administration ORDERS Category Date Time Status CT abdomen pelvis w con Stat Cat Scan 03/23/24 22:25 Completed CBC w/Auto Diff [Complete Blood Count Auto Diff] Stat Lab 03/23/24 23:01 Completed CMP [Comprehensive Metabolic Panel] Stat Lab 03/23/24 23:01 Completed HCG Qualitative, Serum Stat Lab 03/23/24 23:01 Completed HIV Combo Routine Lab 03/23/24 23:01 Received Hepatitis C Ab Qual. W/ RFX Routine Lab 03/23/24 23:01 Received Lipase Stat Lab 03/23/24 23:01 Completed Trop I [Troponin I] Stat Lab 03/23/24 23:01 Completed UA [Urinalysis and Microscopic] Stat Lab 03/23/24 21:35 Completed EKG Request [ECG Request] Stat Y 03/23/24 22:28 Ordered Medical Decision Narrative: In summary patient is a 23-year-old female with past medical history described above who presents emergency department for evaluation of abdominal pain in the setting of situs inversus, previous gastric sleeve, congenital heart disease status post surgical intervention. Patient is hemodynamically stable nontoxic- appearing upon arrival, afebrile. Upon my evaluation her pain is completely subsided and is 0 out of 10. It may be that she has gas mediated pain from her sleeve given her stomach small volume. However differential includes pancreatitis, cholecystitis, sleep dehiscence, among others. Workup will be conducted with hematologic labs, CT abdomen pelvis IV contrast, EKG, troponin. Initial medications will be deferred given that she is currently pain-free. Initial hematologic labs reviewed by me, no significant leukocytosis or anemia, urinalysis interpreted by me and not consistent with infection, remainder of hematologic labs and imaging is pending at time of transition of care to the oncoming physician, Dr. Lassiter. Maikol: Upon my assumption of care patient is stable, pain is somewhat improved. Labs are concerning for pancreatitis with elevated lipase. CT abdomen pelvis was completed and personally interpreted. I do not appreciate acute intra-abdominal pathology, I do appreciate abnormalities of the heart. See radiology read for full interpretation which includes findings concerning for possible LV aneurysm with thrombus and calcification. Due to this finding and patient's significant history of congenital heart abnormalities and surgeries, we reached out to [facility]. I spoke with transfer center Dr. Porter as well as congenital heart physician Dr. Cook. Patient does have left ventricular PA shunt as well as other abnormalities however a an aneurysm has not previously been noted. It is possible that this is a previously known abnormality that is incompletely imaged, however the concern of possible thrombus and calcification associated with it causes further concern. With these findings, Dr. Cook recommended transfer to for further evaluation. I believe patient requires admission anyways for pancreatitis. Patient was accepted by Dr. Porter for ED to ED transfer to [facility]. Patient will go via ambulance. Family agreeable to this plan. Patient transferred in stable condition. Critical Care <Duncan Devlin MD - Last Filed: 03/23/24 23:14> Critical Care Time Critical Care Time: No
[2024-03-23 22:31] VITALS: BP 126/65; PULSE 78; O2SAT 96
[2024-03-23 22:34] LABS: Microscopic, Urine URINE MICROSCOPIC (MICROSCOPIC)
[2024-03-23 22:42] LABS: Appearance,Urine CLEAR (Clear); Blood, Urine Negative (Negative); Color,Urine YELLOW (Yellow); Glucose,Urine (UA) Negative (Negative); Ketones,Urine TRACE (Negative); Leukocyte Esterase,Urine Negative (Negative); Nitrate,Urine Negative (Negative); PH,Urine 5.5 (5.0-8.5); Protein,Urine Negative (Negative); Specific Gravity, Urine >= 1.030 (1.005-1.030); Urobilinogen,Urine 0.2 EU/dl (0.2)
[2024-03-23 23:02] LABS: Bilirubin,Urine 1+ (Negative)
[2024-03-23 23:09] LABS: Basophils % 0.3 % (0.1-2.0); Eosinophils # 0.2 K/mm3 (0.0-0.4); Eosinophils % 2.2 % (0.1-12.0); Hematocrit 41.7 % (37.0-47.0); Hemoglobin 13.8 g/dL (12.2-16.2); Lymphocytes # 1.4 K/mm3 (0.7-4.5); Lymphocytes % 14.5 % (10-50); Mean Corpuscular HGB Conc 33.1 g/dL (31.8-35.4); Mean Corpuscular Hemoglobin 29.7 pg (27.0-31.2); Mean Corpuscular Volume 89.7 fl (81-99); Mean Platelet Volume 10.8 fl (7.4-10.4); Monocytes # 0.6 K/mm3 (0.1-1.0); Monocytes % 6.3 % (1.7-9.3); Neutrophils # 7.3 K/mm3 (1.8-7.8); Neutrophils % 76.5 % (37.0-80.0); Platelet Count 215 K/mm3 (142-424); Red Blood Count 4.65 M/mm3 (4.20-5.40); Red Cell Distribution Width 13.1 % (11.5-17.5); White Blood Count 9.5 K/mm3 (4.8-10.8)
[2024-03-23 23:22] LABS: Bacteria,Urine 1+ /lpf
[2024-03-23 23:24] LABS: HCG Qualitative, Serum Negative (Negative)
--- NOTE | 2024-03-23 23:24 | ECG_ITS ---
APPROVED REPORT Exam: Resting ECG HR:63 bpm ECG Measurements Heart Rate 63 AXES OR 127 P 121 QRSd 120 QRS 50 QT 479 T 161 QTc 487 Conclusion ECTOPIC ATRIAL RHYTHM MODERATE INTRAVENTRICULAR CONDUCTION DELAY [110+ ms QRS DURATION] ST DEVIATION AND MARKED T-WAVE ABNORMALITY, CONSIDER LATERAL ISCHEMIA [-0.5+ mV T-WAVE IN I/aVL/V5/V6] ABNORMAL ECG Situs inversus limits diagnostic capability of this EKG Electronically signed by : YANIQUE PALACIOS, 03/30/2024 15:29:52
[2024-03-23 23:36] LABS: Albumin Level 4.1 g/dl (3.5-5.0); Chloride 110 mmol/L (98-107); Potassium 4.3 mmoL/L (3.5-5.1); Sodium 143 mmol/L (136-145)
[2024-03-23 23:38] LABS: Blood Urea Nitrogen 19 mg/dl (7-17); Creatinine Clearance Estimated 120 mL/min (50-200); Estimated Glomerular Filt Rate 87 ml/min (>60); GFR (African American) 106 ML/MIN (>60)
[2024-03-23 23:39] LABS: Alanine Aminotransferase 35 U/L (12-78); Albumin/Globulin Ratio 1.4 (1.1-1.8); Alkaline Phosphatase 85 U/L (38-126); Anion Gap 13.3 mEq/L (5-15); Aspartate Amino Transferase 44 U/L (14-36); Bilirubin,Total 0.7 mg/dl (0.2-1.3); Carbon Dioxide 24 mmol/L (22.0-30.0); Lipase 569 U/L (23-300); Total Protein,Serum 7.1 g/dl (6.3-8.2)
[2024-03-23 23:40] LABS: Calcium 9.4 mg/dl (8.4-10.2); Glucose 74 mg/dl (74-100)
[2024-03-23] MEDS: SODIUM CHLORIDE 0.9% 10ML SYR (RAD ONLY) 10 ML IV (23:55)
[2024-03-23] MEDS: IOPAMIDOL-370 (76%);100ML BOTTLE 75 ML IV (23:55)
[2024-03-24 00:03] LABS: Troponin I < 0.01 ng/ml (0.00-0.034)
--- NOTE | 2024-03-24 00:44 | PC.NURSE ---
Contacted [facility] transfer for transfer of this patient, Dr. Cook speaking with Dr. Lassiter
[2024-03-24 00:49] LABS: Hepatitis C Ab Qual. W/ RFX NEGATIVE (Negative)
[2024-03-24 01:27] LABS: HIV Combo NEGATIVE (Negative)
[2024-03-24 01:37] VITALS: BP 139/67; PULSE 63; RESP 18; TEMP 36.7; O2SAT 100
== END 2024-03-24 01:43 | disposition short-term general hospital (02) ==
PROVIDERS: Emergency Provider Emergency Medicine; PCP Nurse Practitioner
DX: K85.90 Acute pancreatitis without necrosis or infection, unspecified (principal); I25.3 Aneurysm of heart; R10.11 Right upper quadrant pain; R10.12 Left upper quadrant pain
CPT/HCPCS: 74177; 80053; 81001; 83690; 84484; 84703; 85025; 86803; 87389; 93005; 99285; Q9967

== ENCOUNTER 2024-07-15 09:00 | Outpatient (CLI) | payer BC, SELFPAY ==
--- NOTE | 2024-07-15 09:30 | MR_ITS ---
FINAL REPORT CLINICAL HISTORY: excessive blinking, headaches when driving COMPARISON: None FINDINGS: Multiplanar MR imaging of the brain was performed without and with contrast. There is no evidence of intracranial hemorrhage or mass. No abnormal extra-axial fluid collection is seen. The ventricular size is within normal limits. There is no evidence of shift of the midline structures. The posterior fossa and brainstem have an unremarkable appearance. No area of abnormal restricted diffusion is identified. No abnormal contrast enhancement is seen. Normal major vessel vascular flow voids are noted. IMPRESSION: No acute intracranial abnormality identified. Reviewed, Interpreted and Dictated by Ruben Mckeon MD Transcribed by Caitie Rodriguez Authenticated and [facility]
[2024-07-15] MEDS: GADOTERIDOL INJ 10ML SYRINGE 10 ML IV (10:30)
[2024-07-15] MEDS: GADOTERIDOL INJ 20ML SYRINGE 20 ML IV (10:30)
== END 2024-07-15 23:59 | disposition home or self-care (01) ==
LOC: RAD 09:01
PROVIDERS: PCP Nurse Practitioner; Visit Provider Specialist
DX: R51.9 Headache, unspecified (principal); H51.9 Unspecified disorder of binocular movement
CPT/HCPCS: 70553; A9576

== ENCOUNTER 2024-08-15 09:50 | Outpatient (CLI) | payer BC, SELFPAY ==
--- OUTSIDE RECORDS SUMMARY | 2024-06-27 10:00 | XMS_ITS | Encounter Summary ---
Author Organization [facility] Address [address] [place] [address] Care Team Providers Care Buyer Planner Name Role Phone Odalys Velásquez POOL NURSE Unavailable [phone] Susanne Richmond RN Unavailable Unavailable Jevon Cosme MD Unavailable [phone] Garry Guerrier MD Primary Care Provider [phone] Jinny Sequeira MD Unavailable [phone] Carolina Woodward MD Unavailable [phone] Encounter Details Date Type Department Care Team (Latest Contact Info) Description 06/27/2024 10:00 AM EDT - 06/27/2024 11:59 PM EDT Hospital Encounter [facility] Pediatric Cardiac Diagnostic Testing [address], [place] [address] Atrial tachycardia (CMS/HCC) Discharge Disposition: Home or Self Care Social History Tobacco Use Types Packs/Day Years Used Date Smoking Tobacco: Never Passive Smoke Exposure: Never Smokeless Tobacco: Never Alcohol Use Standard Drinks/Week Comments Yes 0 (1 standard drink = 0.6 oz pur e alcohol) socially Humiliation, Afraid, Rape, and Kick questionnair e Answer Date Recorded Within the last year, have y ou been afraid of your partner or ex-partner? No 03/25/2024 Within the last year, have y ou been humiliated or emotionally abused in other ways by your partner or ex-partner? No Within the last year, have y ou been kicked, hit, slapped, or otherwise physically hurt by your partner or ex-partner? No 03/25/2024 Within the last year, have y ou been raped or forced to have any kind of sexual activity by your partner or ex-partner? No 03/25/2024 PHQ-2 Answer Date Recorded Patient Health Questionnaire-2 Score 2 06/27/2024 Hunger Vital Sign Answer Date Recorded Within the past 12 months, y ou worried that your food would run out before you got the money to buy more. Never true 03/25/19 25 Within the past 12 months, t he food you bought just didn't last and you didn't have money to get more. Never true 03/25/2024 PRAPARE - Transportation Answer Date Re corded In the past 12 months, has l ack of transportation kept you from medical appointments or from getting medications? No 02/28 In the past 12 months, has l ack of transportation kept you from meetings, work, or from getting things needed for daily living? No 03/25/2024 PHQ-9 Answer Date Recorded Patient Health Questionnaire-9 Score 7 06/27/2024 Housing Stability Vital Sign Answer Zana e Recorded In the last 12 months, was t here a time when you were not able to pay the mortgage or rent on time? No 03/25/2024 Number of Times Moved in the Last Year Not on fi le 03/25/2024 At any time in the past 12 m [facility], were you homeless or living in a prison (including now)? No 03/25/2024 CAGE ASSESSMENT Answer Date Recorded Cage unable to access Not on file 03/24/2024 Maximum number of drinks you had on a given occasion in the last month? 2 drinks 03/24/2024 How many alcoholic Beverages do you typically drink in a week? 0 - 7 per week 03/24/2024 Have you ever felt you should CUT down on your d rinking? 0 03/24/2024 Have you been ANNOYED by peo ple criticizing your drinking? 0 03/24/2024 Have you felt GUILTY about your drinking? 0 03/24/2024 Have you had a drink first t ab in the morning (EYE-MENTAL HEALTH AIDE) to steady your nerves or to get rid of a hangover? 0 03/24/2024 CAGE Questionnaire Score 0 025 Utilities Answer Date Recorded In the past 12 months has th e electric, gas, oil, or water company threatened to shut off services in your home? 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 Question Answer Date of Assessment Author Patient Health Questionnaire-2 Score 2 02/2024 10:17 AM EDT Hilda [email or web address] * Little interest or pleasure in doing things Answer Date of Assessment Author Several days 06/27/2024 10:17 AM EDT Kp [email or web address] * Feeling down, depressed, or hopeless Answer Date of Assessment Author Several days 06/27/2024 10:17 AM EDT Kp [email or web address] * Question Answer Date of Assessment Author Patient Health Questionnaire-9 Score 7 02/2024 10:17 AM EDT Baldemar [email or web address] * Trouble falling or staying asleep, or sleeping too much Answer Date of Assessment Author Several days 06/27/2024 10:17 AM EDT Kp Wray [email or web address] * Feeling tired or having little energy Answer Date of Assessment Author Several days 06/27/2024 10:17 AM EDT Kp [email or web address] * Poor appetite or overeating Answer Date of Assessment Author Several days 06/27/2024 10:17 AM EDT Kp Wray [email or web address] * Feeling bad about yourself - or that you are a failure or have let yourself or your family down Answer Date of Assessment Author Several days 06/27/2024 10:17 AM EDT Kp Wray [email or web address] * Trouble concentrating on things, such as reading the newspaper or watching television Answer Date of Assessment Author Several days 06/27/2024 10:17 AM Kp [email or web address] * Moving or speaking so slowly that other people could have noticed? Or the opposite - being so fidgety or restless that you have been moving around a lot more than usual. Answer Date of Assessment Author Not at all 06/27/2024 10:17 AM Kp [email or web address] * Thoughts that you would be better off or hurting yourself in some way Answer Date of Assessment Author Not at all 06/27/2024 10:17 AM Kp [email or web address] documented as of this encounter Medications at Time of Discharge busPIRone (Buspar) 15 MG tablet Take 1 tablet (15 mg) by mouth 2 (two) times a day. 02/09/2024 cyclobenzaprine (Flexeril) 10 MG tablet Take 1 tablet (10 mg) by mouth every 8 hours as needed for muscle spasms. 07/06/2023 cyclobenzaprine (Flexeril) 10 MG tablet Take 1 tablet (10 mg) by mouth 3 (three) times a day. 30 tablet 04/04/2024 medroxyPROGESTERon e (Depo-Provera) 150 MG/ML injection Inject 1 mL (150 mg) into the muscle every 3 (three) months. meloxicam (Mobic) 15 MG tablet Take 1 tablet (15 mg) by mouth daily. 10/20/2023 Rexulti 3 MG tablet Take 1 tablet (3 mg) by mouth daily. 02/09/2024 simethicone (Mylicon) 80 MG chewable tablet Chew 1 tablet (80 mg) every 6 (six) hours if needed for flatulence. 30 tablet 03/26/2024 sotalol (Betapace) 160 MG tabletIndications: Atrial tachycardia (CMS/HCC) Take 1 tablet (160 mg) by mouth every 12 (twelve) hours. 180 tablet 04/02/2024 06/28/2024 documented as of this encounter Plan of Treatment Upcoming Encounters Date Type Department Care Team (Late st Contact Info) Description 04/21/2025 12:45 PM EST Appointment Cardiac Imaging [address] [place] [address] 04/21/2025 2:20 PM EST Office Visit [facility] [place] [facility] [address] [place] [id number] Carolina Woodward MD [address] [place] [address] documented as of this encounter Procedures Procedure Name Priority Date/Time Associated Diagnosis Comments ECG PEDIATRIC Routine 06/27/2024 10:32 AM EDT Atrial tachycardia (CMS/HCC) documented in this encounter Results * ECG Pediatric (Future Visit - Performed in your clinic) (06/27/2024 10:32 AM EDT) EKG DIAGNOSIS CLASS Abnormal MUSE ECG Ventricular Rate 65 BPM MUSE ECG Atrial Rate 65 BPM MUSE ECG WY Interval 128 ms MUSE ECG QRSD Interval 118 ms MUSE ECG QT Interval 502 ms MUSE ECG QTC Interval 529 ms MUSE ECG P [place] 119 degrees MUSE ECG R [place] 44 degrees MUSE ECG T Wave [place] 150 degrees MUSE ECG Diagnosis Normal sinus rhythm MUSE ECG Diagnosis Nonspecific intraventricular conduction delay MUSE ECG Diagnosis ST & T wave abnormality, consider anterolateral ischemia MUSE ECG Diagnosis Prolonged QT MUSE ECG Diagnosis When compared with ECG of 23-May-2024 22:48, MUSE ECG Diagnosis No significant change was found MUSE ECG Diagnosis Confirmed by Dandy Cerrato ([id number]) on 06/27/2024 4:13:39 PM MUSE ECG 06/27/2024 10:3 2 AM EDT 06/27/2024 4:13 PM EDT us Dandy Cerrato MD ECG ORDERABLES Final Result MUSE ECG documented in this encounter Visit Diagnoses Diagnosis Atrial tachycardia (CMS/HCC) Other specified cardiac dysrhythmias documented in this encounter Additional Health Concerns Infection Onset Date Last Indicated Resolved Time MRSA Comment:09/03/2018 MDRT MRSA Patient needs MRSA protocol. 09/03/2018 03/24/2024 Assessment Noted Time PHQ-9 Depression Total Score: 7 06/28/19 25 10:17 AM EDT A fall risk assessment has been complete d for the patient 06/27/2024 10:39 AM EDT A Body Mass Index follow-up plan has been documented for the patient 07/02/2024 1:55 PM EDT documented as of this encounter Care Teams Buyer Planner Relationship Specialty Start Date End Date Garry Guerrier MD [address] [place] [address] [address] [place] [address] PCP - General Family Medicine 06/15/23 Odalys Velásquez APRN [address] [place] [address] Nurse Practitioner Internal Medicine 11/25/21 Susanne Richmond, RN [facility] Registered Nurse Cardiology 11/25/21 Jevon Cosme MD [address] [place] [address] Consulting Physician Cardiology 05/25/22 Jinny Sequeira MD [address] [place] [id number] Resident PGY-3 General Surgery 07/27/23 Carolina Woodward MD [address] [place] [address] Consulting Physician Interventional Cardiology 12/12/23 documented as of this encounter
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
--- OUTSIDE RECORDS SUMMARY | 2024-08-15 09:54 | XMS_ITS | Encounter Summary ---
Author Organization [facility] Address [address] [place] [address] Care Team Providers Care Machine Rigger Name Role Phone Odalys Velásquez TRAY SERVER Unavailable [phone] Susanne Richmond RN Unavailable Unavailable Jevon Cosme MD Unavailable [phone] Garry Guerrier MD Primary Care Provider [phone] Jinny Sequeira MD Unavailable [phone] Carolina Woodward MD Unavailable [phone] Encounter Details Date Type Department Care Team (Latest Contact Info) Description 06/27/2024 Travel Social History Tobacco Use Types Packs/Day Years [...] any time in the past 12 m [facility], were you homeless or living in a fdc (including now)? No 03/25/2024 CAGE ASSESSMENT Answer [...] drink first t ab in the morning (EYE-FIBER ANALYST) to steady your nerves or to get [...] Questionnaire-2 Score 2 02/2024 10:17 AM EDT Baldemar [email or web address] * Little interest or pleasure in doing things Answer Date of Assessment Author Several days 06/27/2024 10:17 AM EDT Kp [email or web address] * Feeling down, depressed, or hopeless Answer Date of Assessment Author Several days 06/27/2024 10:17 AM EDT Kp [email or web address] * Question Answer Date of Assessment Author Patient Health Questionnaire-9 Score 7 02/2024 10:17 AM EDT Ruth [email or web address] * Trouble [...] Assessment Author Several days 06/27/2024 10:17 AM EDKp Coelho [email or web address] * Trouble concentrating on things, such [...] Author Not at all 06/27/2024 10:17 AM EDT Kp Wray [email or web address] * Thoughts that you would be better off or hurting yourself in some way Answer Date of Assessment Author Not at all 06/27/2024 10:17 AM EDT Kp Wray [email or web address] documented as of this encounter Plan of Treatment Upcoming Encounters Date Type Department Care Team (Late st Contact Info) Description 04/21/2025 12:45 PM EST Appointment Cardiac Imaging [address] [place] [address] 04/21/2025 2:20 PM EST Office Visit [facility] [place] [address] [facility] [place] [address] Carolina Woodward MD [address] [place] [phone] documented as of this encounter Visit Diagnoses Not on filedocumented in this encounter Additional Health Concerns Infection [...] documented as of this encounter Care Teams Machine Rigger Relationship Specialty Start Date End Date Garry Guerrier MD [address] [place] [address] [address] [place] [address] PCP - General Family Medicine 06/15/23 Odalys Velásquez APRN [address] [place] [phone] Nurse Practitioner Internal Medicine 11/25/21 Susanne Richmond, RN [facility] Registered Nurse Cardiology 11/25/21 Jevon Cosme MD [address] [place] [address] Consulting Physician Cardiology 05/25/22 Jinny Sequeira MD [address] [place] [address] Resident PGY-3 General Surgery 07/27/23 Carolina Woodward MD [address] [place] [address] Consulting Physician Interventional Cardiology 12/12/23 documented as of this encounter
--- OUTSIDE RECORDS SUMMARY | 2024-08-15 09:54 | XMS_ITS | Encounter Summary ---
Author Organization [facility] Address [address] [place] [address] Care Team Providers Care Manager Rehab Name Role Phone Odalys Velásquez POWER ENGINEER Unavailable [phone] Susanne Richmond RN Unavailable Unavailable Jevon Cosme MD Unavailable [phone] Garry Guerrier MD Primary Care Provider [phone] Jinny Sequeira MD Unavailable [phone] Carolina Woodward MD Unavailable [phone] Reason for Visit * Reason Onset Date Comments Med Refill 06/28/2024 Encounter Details Date Type Department Care Team (Late st Contact Info) Description 06/28/2024 Refill [facility] Pediatric Cardiology [address], [address] [place] [address] Blanche Fuentes, RN [facility] Atrial tachycardia (CMS/HCC) Social History Tobacco Use Types Packs/Day Years [...] any time in the past [address] [facility], were you homeless or living in a mcc (including now)? No 03/25/2024 CAGE ASSESSMENT Answer [...] drink first t ab in the morning (EYE-TRAVEL RN) to steady your nerves or to get [...] on file documented as of this encounter Plan of Treatment Upcoming Encounters Date Type Department Care Team (Late st Contact Info) Description 04/21/2025 12:45 PM EST Appointment Cardiac Imaging [address] [place] [address] 04/21/2025 2:20 PM EST Office Visit [facility] [place] [address] [facility]. [address] [place] [address] Carolina Woodward MD [address] [place] [address] documented as of this encounter Visit Diagnoses Diagnosis Atrial tachycardia [...] documented as of this encounter Care Teams Manager Rehab Relationship Specialty Start Date End Date Garry Guerrier MD [address] [facility] [address] [place] [address] PCP - General Family Medicine 06/15/23 Odalys Velásquez APRN [address] [place] [address] Nurse Practitioner Internal Medicine 11/25/21 Susanne Richmond, RN [facility] Registered Nurse Cardiology 11/25/21 Jevon Cosme MD [address] [place] [address] Consulting Physician Cardiology 05/25/22 Jinny Sequeira MD [address] [place] [address] Resident PGY-3 General Surgery 07/27/23 Carolina Woodward MD [address] [place] [address] Consulting Physician Interventional Cardiology 12/12/23 documented as of this encounter
--- OUTSIDE RECORDS SUMMARY | 2024-08-15 09:54 | XMS_ITS | Encounter Summary ---
Author Organization [facility] Address [address] [place] [address] Care Team Providers Care Garment Finisher Name Role Phone Nuris Bustillo RN Unavailable Unavailable Odalys Velásquez WIRE BOUND BOX MACHINE HELPER Unavailable [phone] Susanne Richmond RN Unavailable Unavailable Naveen Wynn MD Unavailable Jevon Cosme MD Unavailable [phone] Garry Guerrier MD Primary Care Provider [phone] Jinny Sequeira MD Unavailable [phone] Carolina Woodward MD Unavailable [phone] Reason for Visit * Reason Onset Date Comments Arrythmia 06/27/2023 Encounter Details Date Type Department Care Team (Late st Contact Info) Description 06/27/2023 Telephone [facility] [address], [address] [place] [address] Dandy Cerrato MD [address] [place] [address] Arrythmia Social History Tobacco Use Types Packs/Day Years Used Date Smoking Tobacco: Never Passive Smoke Exposure: Never Smokeless Tobacco: Never Alcohol Use Standard Drinks/Week Comments Yes 0 (1 standard drink = 0.6 oz pur e alcohol) socially PHQ-2 Answer Date Recorded Patient Health Questionnaire-2 Score 0 06/08/2023 CAGE ASSESSMENT Answer Date Recorded Cage unable to access Not on file 03/25/2022 Maximum number of drinks you had on a given occasion in the last month? 0 drinks 03/25/2022 How many alcoholic Beverages do you typically drink in a week? 0 - 7 per week 03/25/2022 Have you ever felt you should CUT down on your d rinking? 0 03/25/2022 Have you been ANNOYED by peo ple criticizing your drinking? 0 03/25/2022 Have you felt GUILTY about your drinking? 0 03/25/2022 Have you had a drink first t ab in the morning (EYE-PRIVATE CLIENT ADVISOR) to steady your nerves or to get rid of a hangover? 0 03/25/2022 CAGE Questionnaire Score 0 023 PHQ-2A Answer Date Recorded Patient Health Questionnaire-2 [...] PM EST Appointment Cardiac Imaging [address] [place] [address] 04/21/2025 2:20 PM EST Office Visit [facility] [place] [facility] [address] 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 09/03/2018 03/24/2024 Assessment Noted Time A fall risk assessment has been complete d for the patient 06/08/2023 11:42 AM EDT A Body Mass Index follow-up plan has been documented for the patient 06/08/2023 12:01 PM EDT documented as of this encounter Care Teams Garment Finisher Relationship Specialty Start Date End Date Garry Guerrier MD [address] [place] [address] [address] [place] [address] PCP - General Family Medicine 06/15/23 Nuris Bustillo, RN [facility] Registered Nurse 11/25/21 03/24/24 Odalys Velásquez APRN [address] [place] [address] Nurse Practitioner Internal Medicine 11/25/21 Susanne Richmond RN [facility] Registered Nurse Cardiology 11/25/21 Naveen Wynn MD [address] [place] [address] Consulting Physician Pediatric Cardiology 01/05/22 Jevon Cosme MD [address] [place] [address] Consulting Physician Cardiology 05/25/22 Jinny Sequeira MD [address] [place] [address] Resident PGY-3 General Surgery 07/27/23 Carolina Woodward MD [address] [place] [address] Consulting Physician Interventional Cardiology 12/12/23 documented as of this encounter
--- OUTSIDE RECORDS SUMMARY | 2024-08-15 09:54 | XMS_ITS | Encounter Summary ---
Author Organization [facility] Address [address] [place] [address] Care Team Providers Care Denier Control Operator Name Role Phone Nuris Bustillo RN Unavailable Unavailable Odalys Velásquez WATERPROOFING SUPERVISOR Unavailable [phone] Susanne Richmond RN Unavailable Unavailable Naveen Wynn MD Unavailable Cheyanne Whitmore DO Primary Care Provider [phone] Jevon Cosme MD Unavailable [phone] Garry Guerrier MD Primary Care Provider [phone] Jinny Sequeira MD Unavailable [phone] Carolina Woodward MD Unavailable [phone] Reason for Visit * Reason Comments Med Refill Encounter Details Date Type Department Care Team (Late st Contact Info) Description 06/18/2022 Refill [facility] Pediatric Cardiology [address], [address] [place] [address] Dandy Cerrato MD [address] [place] [address] Social History Tobacco Use Types Packs/Day Years Used Date Smoking Tobacco: Never Passive Smoke Exposure: Never Smokeless Tobacco: Never Alcohol Use Standard Drinks/Week Comments Yes 0 (1 standard drink = 0.6 oz pur e alcohol) socially PHQ-2 Answer Date Recorded Patient Health Questionnaire-2 Score 0 04/08/2022 CAGE ASSESSMENT Answer Date Recorded Cage unable [...] drink first t ab in the morning (EYE-SOCK LINER) to steady your nerves or to get rid of a hangover? 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 No / Unsure 05/30/2022 10:26 AM EDT documented as of this encounter Plan of Treatment Upcoming Encounters Date Type Department Care Team (Late st Contact Info) Description 04/21/2025 12:45 PM EST Appointment Cardiac Imaging [address] [place] [address] 04/21/2025 2:20 PM EST Office Visit [facility] [place] [facility] [address] [place] [address] Carolina Woodward MD [address] [place] [address] documented as of this encounter Visit Diagnoses Not on filedocumented in this encounter Additional Health Concerns Infection Onset Date Last Indicated Resolved Time MRSA Comment:09/03/2018 MDRT MRSA Patient needs MRSA protocol. 09/03/2018 03/24/2024 Assessment Noted Time A fall risk assessment has been complete d for the patient 05/16/2022 2:48 PM EDT A Body Mass Index follow-up plan has been documented for the patient 05/30/2022 12:53 PM EDT documented as of this encounter Care Teams Denier Control Operator Relationship Specialty Start Date End Date Haim Cheyanne CharlotteDO [address] [place], [place] [phone] PCP - General 03/30/22 06/14/23 Garry Guerrier MD [address] [place] [address] PCP - General Family Medicine 06/15/23 Nuris Bustillo RN [facility] Registered Nurse 11/25/21 03/24/24 Odalys Velásquez APRN [address] [place] [address] Nurse Practitioner Internal Medicine 11/25/21 Susanne Richmond RN [facility] Registered Nurse Cardiology 11/25/21 Naveen Wynn MD [address] [place] [address] Consulting Physician Pediatric Cardiology 01/05/22 Jevon Cosme MD [address] [place] [phone] Consulting Physician Cardiology 05/25/22 Jinny Sequeira MD [address] [place], [place] [id number] Resident PGY-3 General Surgery 07/27/23 Carolina Woodward MD NPI: [id number] [place] [id number] Consulting Physician Interventional Cardiology 12/12/23 documented as of this encounter
--- OUTSIDE RECORDS SUMMARY | 2024-08-15 09:54 | XMS_ITS | Encounter Summary ---
Author Organization [facility] Address [address] [place] [address] Care Team Providers Care Bank Cashier Name Role Phone Stephen Stoddard MD Primary Care Provider [phone] Nuris Bustillo RN Unavailable Unavailable Odalys Velásquez APRN Unavailable [phone] Susanne Richmond RN Unavailable Unavailable Naveen Wynn MD Unavailable Cheyanne Whitmore DO Primary Care Provider [phone] Jevon Cosme MD Unavailable [phone] Garry Guerrier MD Primary Care Provider [phone] Jinny Sequeira MD Unavailable [phone] Carolina Woodward MD Unavailable [phone] Reason for Visit * Reason Comments Med Refill Encounter Details Date Type Department Care Team (Late st Contact Info) Description 03/07/2022 Refill [facility]iology [address] [place] [address] Dandy Cerrato MD [address] [place] [address] Atrial tachycardia (CMS/HCC) (Primary Dx) Social History Tobacco Use Types Packs/Day Years Used Date Smoking Tobacco: Never Smokeless Tobacco: Never Alcohol Use Standard Drinks/Week Comments Yes 0 (1 standard drink = 0.6 oz pur e alcohol) socially Comments No Sex and Gender Information Value Date Recorded Sex Assigned at Female 07/27/2023 6:50 AM EDT Legal Sex Female 8:39 PM EDT Gender Identity Female 07/27/2023 6:50 AM EDT Sexual Orientation Not on file documented as of this encounter Plan of Treatment Upcoming Encounters Date Type Department Care Team (Late st Contact Info) Description 04/21/2025 12:45 PM EST Appointment Cardiac Imaging [address] [place] [address] 04/21/2025 2:20 PM EST Office Visit [facility] [place] [address] [place] [address] Carolina Woodward MD [address] [place] [address] documented as of this encounter Visit Diagnoses Diagnosis Atrial tachycardia (CMS/HCC)- Primary Other specified cardiac dysrhythmias documented in this encounter Additional Health Concerns Infection Onset Date Last Indicated Resolved Time MRSA Comment:09/03/2018 MDRT MRSA Patient needs MRSA protocol. 09/03/2018 03/24/2024 Assessment Noted Time A fall risk assessment has been complete d for the patient 04/09/2021 1:00 PM EST documented as of this encounter Care Teams Bank Cashier Relationship Specialty Start Date End Date Stephen Stoddard MD [address] [facility] [place] [address] PCP - General 07/10/20 03/29/22 Cheyanne Whitmore DO [address] [facility] [place] [address] PCP - General 03/30/22 06/14/23 Garry Guerrier MD [address] [place] [address] [address] [place] [address] PCP - General Family Medicine 06/15/23 Nuris Bustillo, RN [facility] Registered Nurse 11/25/21 03/24/24 Odalys Velásquez APRN [address] [place] [address] Nurse Practitioner Internal Medicine 11/25/21 Susanne Richmond RN [facility] Registered Nurse Cardiology 11/25/21 Naveen Wynn MD [address] [place] [address] Consulting Physician Pediatric Cardiology 01/05/22 Jevon Cosme MD [address] [place] [address] Consulting Physician Cardiology 05/25/22 Jinny Sequeira MD [address] [place] [address] Resident PGY-3 General Surgery 07/27/23 Carolina Woodward MD [address] [place] [address] Consulting Physician Interventional Cardiology 12/12/23 documented as of this encounter
--- OUTSIDE RECORDS SUMMARY | 2024-08-15 09:54 | XMS_ITS | Encounter Summary ---
Author Organization [facility] Address [address] [place] [address] Care Team Providers Care Pigment Mixer Name Role Phone Nuris Bustillo RN Unavailable Unavailable Odalys Velásquez SUPERVISOR COLD ROLLING Unavailable [phone] Susanne Richmond RN Unavailable Unavailable Naveen Wynn MD Unavailable Cheyanne Whitmore DO Primary Care Provider [phone] Jevon Cosme MD Unavailable [phone] Garry Guerrier MD Primary Care Provider [phone] Jinny Sequeira MD Unavailable [phone] Carolina Woodward MD Unavailable [phone] Reason for Visit * Reason Onset Date Comments Med Refill 08/02/2022 Encounter Details Date Type Department Care Team (Late st Contact Info) Description 08/02/2022 Refill [facility] Cardiology [address] [place] [address] Dandy Cerrato MD [address] [place] [address] Atrial tachycardia (CMS/HCC) (Primary Dx) Social History Tobacco Use Types Packs/Day Years Used Date Smoking Tobacco: Never Passive Smoke Exposure: Never Smokeless Tobacco: Never Alcohol Use Standard Drinks/Week Comments Yes 0 (1 standard drink = 0.6 oz pur e alcohol) socially PHQ-2 Answer Date Recorded Patient Health Questionnaire-2 Score 0 08/05/2022 CAGE ASSESSMENT Answer Date Recorded Cage unable [...] drink first t ab in the morning (EYE-HEALTHCARE CONSULTING MANAGER) to steady your nerves or to get [...] problems? Question Answer Date of Assessment Author Little interest or pleasure in doing things Not at all 08/05/2022 2:34 PM EDT Jenelle Boyle Feeling down, depressed, or hopeless Not at all 10/2022 2:34 PM EDT Jenelle Boyle Patient Health Questionnaire-2 Score 0 10/2022 2:34 PM EDT Jenelle Boyle documented as of this encounter Miscellaneous Notes * Telephone Encounter - Allison Crouch RN - 08/02/2022 3:[address] Cerrato would like to continue the sotalol until Daniela documents an episode. She will try to find the Apple watch she bought. I will also send other ECG yas options for her to look into it she isnot able to find it. documented in this encounter Plan of Treatment Upcoming Encounters Date Type Department Care Team (Late st Contact Info) Description 04/21/2025 12:45 PM EST Appointment Cardiac Imaging [address] [place] [address] 04/21/2025 2:20 PM EST Office Visit [facility] [place] [facility] [address] [facility] [place] [address] Carolina Woodward MD [address] [place] [address] documented as of this encounter Visit Diagnoses Diagnosis Atrial tachycardia (CMS/HCC)- Primary Other specified cardiac dysrhythmias documented in this encounter Additional Health Concerns Infection Onset Date Last Indicated Resolved Time MRSA Comment:09/03/2018 MDRT MRSA Patient needs MRSA protocol. 09/03/2018 03/24/2024 Assessment Noted Time A fall risk assessment has been complete d for the patient 07/07/2022 1:14 PM EDT A Body Mass Index follow-up plan has been documented for the patient 07/07/2022 2:23 PM EDT documented as of this encounter Care Teams Pigment Mixer Relationship Specialty Start Date End Date Cheyanne Whitmore DO [address] [place] [address] PCP - General 03/30/22 06/14/23 Garry Guerrier MD [address] [place] [address] PCP - General Family Medicine 06/15/23 Nuris Bustillo RN [facility] Registered Nurse 11/25/21 03/24/24 Odalys Velásquez APRN [address] [place] [address] Nurse Practitioner Internal Medicine 11/25/21 Susanne Richmond, RN [facility] Registered Nurse Cardiology 11/25/21 Naveen Wynn MD [address] [place] [address] Consulting Physician Pediatric Cardiology 01/05/22 Jevon Cosme MD [address] [place] [address] Consulting Physician Cardiology 05/25/22 Jinny Sequeira MD [address] [place] [address] Resident PGY-3 General Surgery 07/27/23 Carolina Woodward MD [address] [place] [address] Consulting Physician Interventional Cardiology 12/12/23 documented as of this encounter
--- OUTSIDE RECORDS SUMMARY | 2024-08-15 09:54 | XMS_ITS | Clinical Summary ---
Author Organization [facility] Address [address] [place] [address] Care Team Providers Care Gold And Silver Assayer Name Role Phone Odalys Velásquez PARA EDUCATOR Unavailable [phone] Susanne Richmond RN Unavailable Unavailable Jevon Cosme MD Unavailable [phone] Garry Guerrier MD Primary Care Provider [phone] Jinny Sequeira MD Unavailable [phone] Carolina Woodward MD Unavailable [phone] Allergies Active Allergy Reactions Criticality Noted Date Comments Cefprozil Nausea And Vomiting Low 08/29/2013 Cephalosporins Vomiting Low 01/04/2022 Hydromorphone Vomiting 12/12/2023 Esmolol Other - please docum ent in the comment field Low 09/01/2018 Pt experiences severe hypotension, chest pressure and becomes diaphoretic Lisinopril Cough Low 09/11/2017 Methocarbamol Itching Medium 06/29/2018 Medications furosemide (Lasix) 20 MG tabletIndication s:L-TGA, levo-transpositi on of great arteries with ventricular inversion Take 1 tablet (20 mg) by mouth 1 (one) time each day if needed (edema). 30 tablet 4 Active cyclobenzaprine (Flexeril) 10 MG tablet Take 1 tablet (10 mg) by mouth every 8 hours as needed for muscle spasms. 4 Active medroxyPROGESTER one (Depo-Provera) 150 MG/ML injection Inject 1 mL (150 mg) into the muscle every 3 (three) months. Active meloxicam (Mobic) 15 MG tablet Take 1 tablet (15 mg) by mouth daily. 4 Active busPIRone (Buspar) 15 MG tablet Take 1 tablet (15 mg) by mouth 2 (two) times a day. 4 Active Rexulti 3 MG tablet Take 1 tablet (3 mg) by mouth daily. 4 Active simethicone (Mylicon) 80 MG chewable tablet Chew 1 tablet (80 mg) every 6 (six) hours if needed for flatulence. 30 tablet 5 Active cyclobenzaprine (Flexeril) 10 MG tablet Take 1 tablet (10 mg) by mouth 3 (three) times a day. 30 tablet 5 Active Additional Information Patient not taking.Reported on 04/22/2024 dilTIAZem (Cardizem) 60 MG immediate release tablet Take 1 tablet (60 mg) by mouth as needed (as needed for tachy arrhythmias). 30 tablet 1 5 Active sotalol (Betapace) 160 MG tabletIndication s:Atrial tachycardia (CMS/HCC) Take 1 tablet by mouth every 12 hours. 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/21/2022 Hidradenitis suppurativa 12/29/2021 Multiple joint pain 08/11/2021 Heart attack 03/22/2021 Morbid obesity with BMI of 50.0-59.9, adult 10/0 08/2020 Overview (03/26/2024): BMI 50.2 07/27/23: Laparoscopic Sleeve Gastrectomy Complicates all aspects of care PHYLICIA (obstructive sleep apnea) 12/03/2020 Overview (03/26/2024): - Good compliance with CPAP at home PLAN: - Continue CPAP nightly Heart failure 04/10/2020 Palpitations 09/11/2017 AVNRT (AV juan re-entry tachycardia) 07/01/2016 Overview (03/26/2024): Home regimen: sotalol 120mg BID 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 S/p LV to PA conduit and VSD closure at age 1. 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 - Follows with [facility]. PLAN: - Cont. Home sotalol - Complicates all aspects of care Transposition of great arteries, D-loop 08/30/19 14 Overview (03/26/2024): See situs inversus VSD (ventricular septal defect) 08/29/2013 Resolved Problems Problem Noted Date Diagnosed Date Resolved Date Gastroesophageal reflux disease 04/06/2023 03/24/2024 Overview (07/27/2023): HX of Continue Pepcid Dysphagia 04/06/2023 03/24/2024 Arrhythmia 09/23/2022 07/27/2023 Encounter for monitoring sotalol therapy 07/04/2022 07/27/2023 Chronic respiratory failure with hypoxia 05/29/2021 03/24/2024 Overview (07/28/2023): Complicated by body habitus and PHYLICIA HFNC weaned to NC Per primary: avoid CPAP/Bipap 2/2 anastomosis Aggressive pulmonary toilet Shortness of breath on exertion 05/28/2021 07/27/2023 Chest pain 03/22/2021 07/27/2023 Anxiety 03/18/2021 07/27/2023 Depression 03/18/2021 07/27/2023 Dyspepsia 12/03/2020 07/27/2023 Atrial fibrillation with RVR 09/21/2018 03/24/2024 Overview (07/28/2023): HX of Continue home Sotalol Reportedly uses Diltiazem as breakthrough 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, 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 Atrial tachycardia, paroxysmal 09/19/2018 03/24/2024 Metatarsal fracture 07/27/2018 07/27/19 Pilon fracture 07/27/2018 07/27/2023 Wrist pain 07/26/2018 07/27/2023 Hypertension 12/16/2016 03/24/2024 Overview (07/27/2023): Goal of Normotension PRN Hydralazine and Labetalol Resume home medications as appropriate Pulmonary subvalvular stenosis 08/29/2013 03/24/2024 Encounters Date Type Department Care Team Description 06/28/2024 Refill [facility] Pediatric Cardiology [address] [place] [address] Blanche Fuentes, RN Atrial tachycardia (CMS/HCC) 06/27/2024 10:00 AM EDT - 06/27/2024 11:59 PM EDT Hospital Encounter [facility] Pediatric Cardiac Diagnostic Testing [address], [place] [address] Atrial tachycardia (CMS/HCC) Discharge Disposition: Home or Self Care 06/27/2024 10:00 AM EDT Office Visit [facility] Pediatric Cardiology [address] [place] [address] Dandy Cerrato MD Atrial tachycardia (CMS/HCC) (Primary Dx); Transposition of great arteries, D-loop 06/27/2024 Travel 05/24/2024 Travel 05/23/2024 10:52 PM EDT - 05/24/2024 4:34 AM EDT Emergency [facility] [address] [place] [address] Temitope Caceres MD Acute chest pain (Primary Dx) Discharge Disposition: Home or Self Care 05/23/2024 Travel from Last 3 Months Immunizations Immunization Administration Dates Next Due Tdap 06/26/2018 Family History Medical History Relation Name Comments Hypertension Father Kidney Stones Father Crohn's disease Mother Irregular heart beat Mother Anesthesia problems Neg Hx Malig Hyperthermia Neg Hx Relation Name Status Comments Father Mother Social History Tobacco Use Types Packs/Day Years Used Date Smoking Tobacco: Never Passive Smoke Exposure: Never Smokeless Tobacco: Never Tobacco Cessation:Counseling Given: Not Answered Alcohol Use Standard Drinks/Week Comments Yes 0 [...] any time in the past 12 m [facility], were you homeless or living in a assisted (including now)? No 03/25/2024 CAGE ASSESSMENT Answer [...] drink first t ab in the morning (EYE-AMMONIA NITRATE OPERATOR) to steady your nerves or to get [...] file Not on file Not on file Last Filed Vital Signs Vital Sign Reading Time Taken Comments Blood Pressure 118/72 06/27/2024 10:47 AM EDT Pulse 65 06/27/2024 10:47 AM EDT Temperature 36.4 C (97.6 F) 05/24/2024 2:57 AM EDT Respiratory Rate 22 06/27/2024 10:47 AM EDT Oxygen Saturation 97% 06/27/2024 10:47 AM EDT Inhaled Oxygen Concentration - - Weight 164 kg (361 lb 3.6 oz) 06/27/2024 10:47 A M EDT Height 173.4 cm (5' 8.27 ) 06/27/2024 10:47 AM E DT Body Mass Index 54.49 06/27/2024 10:47 AM EDT Plan of Treatment Upcoming Encounters Date Type Department Care Team (Late st Contact Info) Description 04/21/2025 12:45 PM EST Appointment Cardiac Imaging [address] [place] [address] 04/21/2025 2:20 PM EST Office Visit [facility] [place] [address] [facility] [place] [address] Carolina Woodward MD [address] [place] [address] Health Maintenance Due Date Last Done Comments [facility]-Infant/Child/Adol SDOH Screenings 1998 [facility]-Varicella Vaccines (1 of 2 - 13+ 2-dose series) 10/09/2011 HPV Vaccines (1 - 3-dose series) 2013 [facility]-Hepatitis B Vaccines (1 of 3 - 19+ 3-dose series) 2017 [facility]-Pap Smear 10/09/2019 IBM-[id number]-83 Vaccine ( - season) 2023 06/10/2020, 05/13/2020 [facility]- SDOH Screenings 09/22/2024 [facility]-Adult SDOH Screenings 09/22/2024 03/25/2024 [facility]-Influenza Vaccine (Season Ended) 2024 [facility]-Depression Screening 06/27/2025 06/27/2024, 0502/2024 [facility]-DTaP,Tdap,and Td Vaccines (2 - Td or Tdap) 06/26/2028 06/26/2018 [facility]-Zoster Vaccines (1 of 2) 2048 [facility]-HIV Screening Completed 08/02/2023, 05/28/2021 [facility]-Hepatitis C Screening Completed 08/02/2023, 02/2021 [facility]-Obesity Intervention Completed 025, 04/22/2024, 03/24/2024, Additional history exists [facility]-HIB Vaccines Aged Out No longer e ligible based on patient's age to complete this topic [facility]-Hepatitis A Vaccines Aged Out No longer eligible based on patient's age to complete this topic [facility]-IPV Vaccines Aged Out No longer e ligible based on patient's age to complete this topic [facility]-Pneumococcal Vaccine: Pediatrics (0 to 5 Years) and At-Risk Patients (6 to 49 Years) Aged Out No longer eligible based on patient's age to complete this topic [facility]-Rotavirus Vaccines Aged Out No lo nger eligible based on patient's age to complete this topic Medical Devices Implanted Type Area Lab Instructor Device Identifier Shelf Expiration Date Model / Serial / Lot Plate Plate Right: Leg Screw Screw Right: Leg Procedures Procedure Name Priority Date/Time Associated Diagnosis Comments ECG PEDIATRIC Routine 06/27/2024 10:32 AM EDT Atrial tachycardia (CMS/HCC) XR CHEST 1 VIEW STAT 05/24/2024 3:24 AM EDT TROPONIN T, HIGH SENSITIVITY, 2 HOUR, PLASMA Timed 05/24/2024 2:32 AM EDT TEST QUALITATIVE PLASMA STAT 05/24/2024 12:22 AM EDT CBC WITH AUTO DIFFERENTIAL STAT 05/24/2024 12:22 AM EDT FREE T4, PLASMA STAT 05/24/2024 12:22 AM EDT TSH STAT 05/24/2024 12:22 AM EDT TROPONIN T, HIGH SENSITIVITY, 0 HOUR, PLASMA, REFLEX TO 2 HOUR STAT 05/24/2024 12:22 AM EDT MAGNESIUM, PLASMA STAT 05/24/2024 12: 22 AM EDT COMPREHENSIVE METABOLIC PANEL, PLASMA STAT 05/24/2024 12:22 AM EDT ECG ADULT STAT 05/23/2024 10:48 PM EDT HEPATITIS C ANTIBODY - ED W/REFLEX TO HCV QUANT PCR STAT 08/02/2023 6:45 PM EDT ED HIV 1/2 ANTIBODY/ANTIGEN SCREEN WITH REFLEX TO HIV I/II DIFFERENTIATION STAT 08/02/2023 6:45 PM EDT from Last 3 Months or Most Recently Relevant to Health Maintenance Results * ECG Pediatric (Future Visit - Performed in your clinic) (06/27/2024 10:32 AM EDT) EKG DIAGNOSIS CLASS Abnormal MUSE ECG Ventricular Rate 65 BPM MUSE ECG Atrial Rate 65 BPM MUSE ECG OR Interval 128 ms MUSE ECG QRSD Interval 118 ms MUSE ECG QT Interval 502 ms MUSE ECG QTC Interval 529 ms MUSE ECG P Empire 119 degrees MUSE ECG R Empire 44 degrees MUSE ECG T Wave Empire 150 degrees MUSE ECG Diagnosis Normal sinus [...] MD ECG ORDERABLES Final Result MUSE ECG * XR Chest 1 View (05/24/2024 3:24 AM EDT) Anatomical Region Laterality Modality Chest Digital Radiogra phy Impressions 05/24/2024 4:01 AM EDT Left retrocardiac opacity with possible small left pleural effusion. CRITICAL RESULT: No. COMMUNICATION: Per this written report. By electronically signing this report, I, the attending physician, attest that I have personally reviewed the images/data for the above examination(s) and agree with the final edited report. Drafted by Rashad Dennison MD on 05/24/2024 3:51 AM Final report signed by Florentin Gomez MD on 05/24/2024 4:01 AM Narrative 05/24/2024 4:01 AM EDT CLINICAL INDICATION: chest pain, SOB TECHNIQUE: XR CHEST 1 VIEW COMPARISON: 12/12/2023 FINDINGS: Cardiomegaly. Normal mediastinal contours. Left retrocardiac opacity with possible small left pleural effusion. No pneumothorax. No acute osseous findings. Procedure Note Florentin Gomez MD - 05/24/2024 CLINICAL INDICATION: chest pain, SOB TECHNIQUE: XR CHEST 1 VIEW COMPARISON: 12/12/2023 FINDINGS: Cardiomegaly. Normal mediastinal contours. Left retrocardiac opacity withpossible small left pleural effusion. No pneumothorax. No acute osseousfindings. IMPRESSION: Left retrocardiac opacity with possible small left pleural effusion. CRITICAL RESULT: No. COMMUNICATION: Per this written report. By electronically signing this report, I, the attending physician, attestthat I have personally reviewed the images/data for the aboveexamination(s) and agree with the final edited report. Drafted by Rashad Dennison MD on 05/24/2024 3:51 AM Final report signed by Florentin Gomez MD on 05/24/2024 4:01 AM us Temitope Caceres MD IMG XR PROCEDURES Final Resul t * Troponin T, High Sensitivity, 2 Hour, Plasma (05/24/2024 2:32 AM EDT) Troponin T, High Sensitivity, 2 Hour <6 <14 ng/L 05/24/2024 3:13 AM EDT [facility] Blood Venous blood specimen / Unknown Venipuncture / Unknown 05/24/2024 2:32 AM EDT 05/24/2024 2:46 AM EDT us Temitope Caceres MD LAB BLOOD ORDERABLES Final Re sult [facility] [address] [place] [address] * Troponin now and 120 min (05/24/2024 12:22 AM EDT) Troponin T, High Sensitivity, 0 Hour 12 <14 ng/L 05/24/2024 1:22 AM EDT [facility] Blood Venous blood specimen / Unknown Venipuncture / Unknown 05/24/2024 12:22 AM EDT 05/24/2024 12:32 AM EDT Temitope Caceres MD LAB BLOOD ORDERABLES Final Re sult Performing Organization Address City/[facility]/ZIP Co de Phone Number [facility] [address] [place] [address] * CBC w/diff (05/24/2024 12:22 AM EDT) WBC Count 9.23 3.70 - 10.30 10*3/uL LAB HEMATOLOGY METHOD 05/24/2024 12:28 AM EDT [facility] RBC Count 5.07 3.90 - 5.20 10*6/uL LAB HEMATOLOGY METHOD 05/24/2024 12:28 AM EDT [facility] HGB 15.2 11.2 - 15.7 g/dL LAB HEMATOLOGY METHOD 05/24/2024 12:28 AM EDT [facility] HCT 44.6 34.0 - 45.0 % LAB HEMATOLOGY METHOD 05/24/2024 12:28 AM EDT [facility] Platelet Count 265 155 - 369 10*3/uL LAB HEMATOLOGY METHOD 05/24/2024 12:28 AM EDT [facility] MCV 88 79 - 98 fL LAB HEMATOLOGY METHOD 05/24/2024 12:28 AM EDT [facility] MCH 30.0 26.0 - 32.0 pg LAB HEMATOLOGY METHOD 05/24/2024 12:28 AM EDT [facility] MCHC 34.1 30.7 - 35.5 g/dL LAB HEMATOLOGY METHOD 05/24/2024 12:28 AM EDT [facility] RDW 13.3 11.5 - 14.5 % LAB HEMATOLOGY METHOD 05/24/2024 12:28 AM EDT [facility] MPV 9.5 8.8 - 12.5 fL LAB HEMATOLOGY METHOD 05/24/2024 12:28 AM EDT [facility] nRBC 0.0 <=0.0 per 100 WBCs LAB HEMATOLOGY METHOD 05/24/2024 12:28 AM EDT [facility] Differential Type Automated LAB HEMATOLOGY METHOD 05/24/2024 12:28 AM EDT [facility] Neutrophils % 66 % LAB HEMATOLOGY METHOD 05/24/2024 12:28 AM EDT [facility] Lymphocytes % 24 % LAB HEMATOLOGY METHOD 05/24/2024 12:28 AM EDT [facility] Monocytes % 7 % LAB HEMATOLOGY METHOD 05/24/2024 12:28 AM EDT [facility] Eosinophils % 3 % LAB HEMATOLOGY METHOD 05/24/2024 12:28 AM EDT [facility] Basophils % 0 % LAB HEMATOLOGY METHOD 05/24/2024 12:28 AM EDT [facility] Immature Granulocytes % 0 % LAB HEMATOLOGY METHOD 05/24/2024 12:28 AM EDT [facility] Neutrophils Absolute 5.98 1.60 - 6.10 10*3/uL LAB HEMATOLOGY METHOD 05/24/2024 12:28 AM EDT [facility] Lymphocytes Absolute 2.25 1.20 - 3.90 10*3/uL LAB HEMATOLOGY METHOD 05/24/2024 12:28 AM EDT [facility] Monocytes Absolute 0.63 0.30 - 0.90 10*3/uL LAB HEMATOLOGY METHOD 05/24/2024 12:28 AM EDT [facility] Eosinophils Absolute 0.31 0.00 - 0.50 10*3/uL LAB HEMATOLOGY METHOD 05/24/2024 12:28 AM EDT [facility] Basophils Absolute 0.04 0.00 - 0.10 10*3/uL LAB HEMATOLOGY METHOD 05/24/2024 12:28 AM EDT [facility] Immature Granulocytes Absolute 0.02 0.00 - 0.06 10*3/uL LAB HEMATOLOGY METHOD 05/24/2024 12:28 AM EDT [facility] Blood Venous blood specimen / Unknown Venipuncture / Unknown 05/24/2024 12:22 AM EDT 05/24/2024 12:25 AM EDT Narrative [facility] - 05/24/2024 12:28 AM EDT Therapeutic decision making should be based on absolute values, rather than percentages. Temitope Caceres MD LAB BLOOD ORDERABLES Final Re sult Performing Organization Address City/[facility] [place] [place] [address] * hCG qualitative (05/24/2024 12:22 AM EDT) Test Negative Negative 05/24/2024 1:22 AM EDT [facility] Blood Venous blood specimen / Unknown Venipuncture / Unknown 05/24/2024 12:22 AM EDT 05/24/2024 12:32 AM EDT Narrative [facility] - 05/24/2024 1:22 AM EDT Reference Range: Males and non- females: Negative. us Temitope Caceres MD LAB BLOOD ORDERABLES Final Re sult Performing Organization Address City/[facility] [place] [place] [address] * Thyroid Stimulating Hormone, Plasma (05/24/2024 12:22 AM EDT) Thyroid Stimulating Hormone, Plasma 2.29 0.40 - 4.20 uIU/mL 05/24/2024 1:22 AM EDT [facility] Blood Venous blood specimen / Unknown Venipuncture / Unknown 05/24/2024 12:22 AM EDT 05/24/2024 12:32 AM EDT Narrative [facility] - 05/24/2024 1:22 AM EDT Trimester Specific Ranges TSH ( IU/mL) 1st Trimester 0.1 - 3.0 2nd Trimester 0.19 - 4.06 3rd Trimester 0.3 - 3.7 Temitope Caceres MD LAB BLOOD ORDERABLES Final Re sult [facility] [address] [place] [address] * Free T4, Plasma (05/24/2024 12:22 AM EDT) Free T4, Plasma 1.5 0.8 - 1.7 ng/dL 05/24/2024 1:09 AM EDT [facility] Blood Venous blood specimen / Unknown Venipuncture / Unknown 05/24/2024 12:22 AM EDT 05/24/2024 12:33 AM EDT Narrative [facility] - 05/24/2024 1:09 AM EDT Free T4 Trimester Specific Ranges 1st Trimester 0.9 - 1.50 ng/dL 2nd Trimester 0.7 - 1.40 ng/dL 3rd Trimester 0.7 - 1.24 ng/dL Temitope Caceres MD LAB BLOOD ORDERABLES Final Re sult [facility] [address] [place] [address] * Magnesium (05/24/2024 12:22 AM EDT) Magnesium, Plasma 2.0 1.9 - 2.4 mg/dL 05/24/2024 1:22 AM EDT [facility] Blood Venous blood specimen / Unknown Venipuncture / Unknown 05/24/2024 12:22 AM EDT 05/24/2024 12:32 AM EDT Temitope Caceres MD LAB BLOOD ORDERABLES Final Re sult [facility] [address] [place] [address] * (ABNORMAL) CMP (05/24/2024 12:22 AM EDT) Glucose, Plasma 79 74 - 99 mg/dL 05/24/2024 1:22 AM EDT [facility] BUN, Plasma 21 7 - 21 mg/dL 05/24/2024 1:22 AM EDT [facility] Creatinine, Plasma 0.88 0.60 - 1.10 mg/dL 05/24/2024 1:22 AM EDT [facility] BUN/Creatinine Ratio 24 05/24/2024 1:22 AM EDT [facility] Sodium, Plasma 141 136 - 145 mmol/L 05/24/2024 1:22 AM EDT [facility] Potassium, Plasma 4.3 3.6 - 4.9 mmol/L 05/24/2024 1:22 AM EDT [facility] Chloride, Plasma 109(H) 97 - 107 mmol/L 05/24/2024 1:22 AM EDT [facility] CO2, Plasma 20(L) 22 - 29 mmol/L 05/24/2024 1:22 AM EDT [facility] Anion Gap 12 6 - 16 mmol/L 05/24/2024 1:22 AM EDT [facility] Total Calcium, Plasma 9.8 8.9 - 10.2 mg/dL 05/24/2024 1:22 AM EDT [facility] Total Protein 7.7 6.3 - 7.9 g/dL 05/24/2024 1:22 AM EDT [facility] Albumin, Plasma 4.1 3.5 - 5.2 g/dL 05/24/2024 1:22 AM EDT [facility] AST, Plasma 25 10 - 35 U/L 05/24/2024 1:22 AM EDT [facility] ALT, Plasma 27 10 - 35 U/L 05/24/2024 1:22 AM EDT [facility] Alkaline Phosphatase, Plasma 107(H) 35 - 104 U/L 05/24/2024 1:22 AM EDT [facility] Total Bilirubin, Plasma 0.6 0.2 - 1.1 mg/dL 05/24/2024 1:22 AM EDT [facility] eGFRcr 93.7 mL/min/1.7 3m*2 05/24/2024 1:22 AM EDT [facility] Comment:Reported eGFRcr in m L/min/1.73m2 is based the CKD-EPI 2021 equation that does not use a race coefficient. Blood Venous blood specimen / Unknown Venipuncture / Unknown 05/24/2024 12:22 AM EDT 05/24/2024 12:32 AM EDT Result [facility] Temitope Caceres MD LAB BLOOD ORDERABLES Final Re sult [facility] [address] [place] [address] * ECG Adult (05/23/2024 10:48 PM EDT) EKG DIAGNOSIS CLASS Abnormal MUSE ECG Ventricular Rate 74 BPM MUSE ECG Atrial Rate 74 BPM MUSE ECG OR Interval 122 ms MUSE ECG QRSD Interval 116 ms MUSE ECG QT Interval 444 ms MUSE ECG QTC Interval 492 ms MUSE ECG P Empire 118 degrees MUSE ECG R Empire 35 degrees MUSE ECG T Wave Empire 158 degrees MUSE ECG Diagnosis Normal sinus rhythm MUSE ECG Diagnosis Cannot rule out a delata wave (WPW). MUSE ECG Diagnosis ST & Marked T wave abnormality, consider inferolateral ischemia MUSE ECG Diagnosis Prolonged QT MUSE ECG Diagnosis Abnormal ECG MUSE ECG Diagnosis MUSE ECG Diagnosis Confirmed by Abel Durbin ([id number]) on 05/25/2024 10:52:26 AM MUSE ECG 05/23/2024 10:4 8 PM EDT 05/25/2024 10:52 AM EDT Temitope Caceres MD ECG ORDERABLES Final Result MUSE ECG * ED HIV 1/2 Antibody/Antigen Screen w/Reflex to HIV 1/2 Differentiation (08/02/2023 6:45 PM EDT) HIV 1 & 2 Antibody/Antigen Screen Non Reactive Non Reactive 08/02/2023 8:15 PM EDT [facility] Comment:Screening for HIV 1 & 2 antibodies, and P24 antigen is NONREACTIVE. No confirmatory testing is required. Blood Venous blood specimen / Unknown Venipuncture / Unknown 08/02/2023 6:45 PM EDT 08/02/2023 7:05 PM EDT Evelyn Dhillon MD LAB BLOOD ORDERABLES Final Resu lt Performing Organization Address City/[facility]/ZIP Co de Phone Number [facility] [address] [place] [address] * Hepatitis C Antibody - ED (08/02/2023 6:45 PM EDT) Hepatitis C Antibody Negative Negative 08/02/2023 8:12 PM EDT [facility] Blood Venous blood specimen / Unknown Venipuncture / Unknown 08/02/2023 6:45 PM EDT 08/02/2023 7:05 PM EDT Evelyn Dhillon MD LAB BLOOD ORDERABLES Final Resu lt Performing Organization Address [facility] Co de Phone Number [facility] [address] [place] [address] from Last 3 Months or Most Recently Relevant to Health Maintenance Additional Health Concerns Infection Onset Date Last Indicated MRSA Comment:09/03/2018 MDRT MRSA Patient needs MRSA protocol. 09/03/2018 03/24/2024 Insurance ANTH Advance Directives * Full Code (Latest Code Status on File) Date Activated Date Inactivated Comments 03/24/2024 8:49 AM 03/26/2024 9:53 PM Question Answer Comments Patient has decision-making capacity? Yes * Full Code Date Activated Date Inactivated Comments 07/27/2023 11:46 AM 07/30/2023 7:49 PM Question Answer Comments Patient has decision-making capacity? Yes * Full Code Date Activated Date Inactivated Comments 07/04/2022 1:41 PM 07/05/2022 3:43 PM Question Answer Comments Patient has decision-making capacity? Yes * Full Code Date Activated Date Inactivated Comments 05/28/2021 10:08 PM 05/29/2021 6:02 PM Question Answer Comments Patient has decision-making capacity? Yes * Full Code Date Activated Date Inactivated Comments 03/22/2021 2:49 AM 03/22/2021 4:38 PM Question Answer Comments Patient has decision-making capacity? Yes Care Teams Gold And Silver Assayer Relationship Specialty Start Date End Date Garry Guerrier MD [address] [place] [id number] PCP - General Family Medicine 06/15/23 Odalys Velásquez APRN [address] [place] [address] Nurse Practitioner Internal Medicine 11/25/21 Susanne Richmond, RN [facility] Registered Nurse Cardiology 11/25/21 Jevon Cosme MD [address] [place] [address] Consulting Physician Cardiology 05/25/22 Jinny Sequeira MD [address] [place] [address] Resident PGY-3 General Surgery 07/27/23 Carolina Woodward MD [address] [place] [address] Consulting Physician Interventional Cardiology 12/12/23
--- NOTE | 2024-08-15 09:55 | XR_ITS ---
FINAL REPORT TECHNIQUE: Right ankle 4 views CLINICAL HISTORY: RIGHT ANKLE PAIN surgery 2019 pain all around ankle, not radiating COMPARISON: None FINDINGS: RIGHT ANKLE: 4 views of the right ankle were performed without prior films available for comparison purposes. There is a sideplate and screws bridging the lateral, mid, and distal fibula. The proximal portion of the sideplate is not visualized on this exam. Screws are also present in the medial malleolus. There are advanced hypertrophic changes of the ankle mortise. No acute bony abnormality is identified. IMPRESSION: Prior ORIF of the distal tibia as described. Advanced hypertrophic changes of the ankle mortise without acute bony abnormality. Reviewed, Interpreted and Dictated by Ruben Mckeon MD Transcribed by Caitie Rodriguez Authenticated and [facility]
== END 2024-08-15 23:59 | disposition home or self-care (01) ==
LOC: RAD 09:51
PROVIDERS: PCP Nurse Practitioner; Visit Provider Nurse Practitioner
DX: M19.071 Primary osteoarthritis, right ankle and foot (principal); Z98.890 Other specified postprocedural states
CPT/HCPCS: 73610

== ENCOUNTER 2024-10-12 19:13 | Outpatient (CLI) | payer BC, SELFPAY ==
--- OUTSIDE RECORDS SUMMARY | 2024-10-01 11:15 | XMS_ITS | Encounter Summary ---
Author Organization [facility] Address [address] [place] [address] Care Team Providers Care Electric Meter Installer Helper Name Role Phone Odalys Velásquez SPEECH PROFESSOR Unavailable [phone] Susanne Richmond RN Unavailable Unavailable Jevon Cosme MD Unavailable [phone] Garry Guerrier MD Primary Care Provider [phone] Jinny Sequeira MD Unavailable [phone] Carolina Woodward MD Unavailable [phone] Encounter Details Date Type Department Care Team (Late st Contact Info) Description 10/01/2024 11:15 AM EDT Office Visit [facility] General & Weight Loss Surgery [address] [place] [phone] Augustine Yao MD [address] [phone] S/P gastric sleeve procedure (Primary Dx); BMI [...] any time in the past 12 m [facility], were you homeless or living in a [...] 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 [place] [address] Carolina Woodward MD [address] [place] [address] documented as of this encounter Results * (ABNORMAL) Comprehensive Metabolic Panel, Plasma (10/01/2024 12:28 PM EDT) Glucose, Plasma 84 74 - 99 mg/dL 10/01/2024 2:28 PM EDT [facility] BUN, Plasma 17 7 - 21 mg/dL 10/01/2024 2:28 PM EDT [facility] Creatinine, Plasma 0.75 0.60 - 1.10 mg/dL 10/01/2024 2:28 PM EDT [facility] BUN/Creatinine Ratio 23 10/01/2024 2:28 PM EDT [facility] Sodium, Plasma 143 136 - 145 mmol/L 10/01/2024 2:28 PM EDT [facility] Potassium, Plasma 4.9 3.6 - 4.9 mmol/L 10/01/2024 2:28 PM EDT [facility] Chloride, Plasma 110(H) 97 - 107 mmol/L 10/01/2024 2:28 PM EDT [facility] CO2, Plasma 22 22 - 29 mmol/L 10/01/2024 2:28 PM EDT [facility] Anion Gap 11 6 - 16 mmol/L 10/01/2024 2:28 PM EDT [facility] Total Calcium, Plasma 9.8 8.9 - 10.2 mg/dL 10/01/2024 2:28 PM EDT [facility] Total Protein 7.5 6.3 - 7.9 g/dL 10/01/2024 2:28 PM EDT [facility] Albumin, Plasma 4.3 3.5 - 5.2 g/dL 10/01/2024 2:28 PM EDT [facility] AST, Plasma 22 10 - 35 U/L 10/01/2024 2:28 PM EDT [facility] ALT, Plasma 26 10 - 35 U/L 10/01/2024 2:28 PM EDT [facility] Alkaline Phosphatase, Plasma 111(H) 35 - 104 U/L 10/01/2024 2:28 PM EDT [facility] Total Bilirubin, Plasma 0.9 0.2 - 1.1 mg/dL 10/01/2024 2:28 PM EDT [facility] eGFRcr 113.5 mL/min/1.7 3m*2 10/01/2024 2:28 PM EDT [facility] Comment:Reported eGFRcr in m L/min/1.73m2 is based the CKD-EPI 2020 equation that does not use a race coefficient. Blood Venous blood specimen / Unknown Venipuncture / Unknown 10/01/2024 12:28 PM EDT 10/01/2024 12:29 PM EDT Iv[facility] MONTERO LAB BLOOD ORDERABLES Final Result [facility] [address] [place] [address] * (ABNORMAL) CBC and Differential (10/01/2024 12:28 PM EDT) WBC Count 8.59 3.70 - 10.30 10*3/uL LAB HEMATOLOGY METHOD 10/01/2024 2:22 PM EDT [facility] RBC Count 5.18 3.90 - 5.20 10*6/uL LAB HEMATOLOGY METHOD 10/01/2024 2:22 PM EDT [facility] HGB 15.3 11.2 - 15.7 g/dL LAB HEMATOLOGY METHOD 10/01/2024 2:22 PM EDT [facility] HCT 46.4(H) 34.0 - 45.0 % LAB HEMATOLOGY METHOD 10/01/2024 2:22 PM EDT [facility] Platelet Count 261 155 - 369 10*3/uL LAB HEMATOLOGY METHOD 10/01/2024 2:22 PM EDT [facility] MCV 90 79 - 98 fL LAB HEMATOLOGY METHOD 10/01/2024 2:22 PM EDT [facility] MCH 29.5 26.0 - 32.0 pg LAB HEMATOLOGY METHOD 10/01/2024 2:22 PM EDT [facility] MCHC 33.0 30.7 - 35.5 g/dL LAB HEMATOLOGY METHOD 10/01/2024 2:22 PM EDT [facility] RDW 12.8 11.5 - 14.5 % LAB HEMATOLOGY METHOD 10/01/2024 2:22 PM EDT [facility] MPV 10.4 8.8 - 12.5 fL LAB HEMATOLOGY METHOD 10/01/2024 2:22 PM EDT [facility] nRBC 0.0 <=0.0 per 100 WBCs LAB HEMATOLOGY METHOD 10/01/2024 2:22 PM EDT [facility] Differential Type Automated LAB HEMATOLOGY METHOD 10/01/2024 2:22 PM EDT [facility] Neutrophils % 73 % LAB HEMATOLOGY METHOD 10/01/2024 2:22 PM EDT [facility] Lymphocytes % 17 % LAB HEMATOLOGY METHOD 10/01/2024 2:22 PM EDT [facility] Monocytes % 7 % LAB HEMATOLOGY METHOD 10/01/2024 2:22 PM EDT [facility] Eosinophils % 2 % LAB HEMATOLOGY METHOD 10/01/2024 2:22 PM EDT [facility] Basophils % 0 % LAB HEMATOLOGY METHOD 10/01/2024 2:22 PM EDT [facility] Immature Granulocytes % 1 % LAB HEMATOLOGY METHOD 10/01/2024 2:22 PM EDT [facility] Neutrophils Absolute 6.32(H) 1.60 - 6.10 10*3/uL LAB HEMATOLOGY METHOD 10/01/2024 2:22 PM EDT [facility] Lymphocytes Absolute 1.45 1.20 - 3.90 10*3/uL LAB HEMATOLOGY METHOD 10/01/2024 2:22 PM EDT [facility] Monocytes Absolute 0.56 0.30 - 0.90 10*3/uL LAB HEMATOLOGY METHOD 10/01/2024 2:22 PM EDT [facility] Eosinophils Absolute 0.17 0.00 - 0.50 10*3/uL LAB HEMATOLOGY METHOD 10/01/2024 2:22 PM EDT [facility] Basophils Absolute 0.03 0.00 - 0.10 10*3/uL LAB HEMATOLOGY METHOD 10/01/2024 2:22 PM EDT [facility] Immature Granulocytes Absolute 0.06 0.00 - 0.06 10*3/uL LAB HEMATOLOGY METHOD 10/01/2024 2:22 PM EDT [facility] Blood Venous blood specimen / Unknown Venipuncture / Unknown 10/01/2024 12:28 PM EDT 10/01/2024 12:29 PM EDT Narrative [facility] - 10/01/2024 2:22 PM EDT Therapeutic decision making should be based on absolute values, rather than percentages. [facility] MONTER[facility] LAB BLOOD ORDERABLES Final Result Performing Organization Address City/[facility]/ZIP Co de Phone Number [facility] [address] [place] [address] * (ABNORMAL) Ferritin, Serum (10/01/2024 12:28 PM EDT) Ferritin, Serum 173(H) 13 - 150 ng/mL 10/01/2024 3:03 PM EDT [facility] Blood Venous blood specimen / Unknown Venipuncture / Unknown 10/01/2024 12:28 PM EDT 10/01/2024 12:29 PM EDT [facility] [place] LAB BLOOD ORDERABLES Final Result [facility] [address] [place] [address] * Folate, Serum (10/01/2024 12:28 PM EDT) Folate, Serum 7.5 >4.6 ng/mL 10/01/2024 2:48 PM EDT [facility] Blood Venous blood specimen / Unknown Venipuncture / Unknown 10/01/2024 12:28 PM EDT 10/01/2024 12:29 PM EDT [facility] [place] LAB BLOOD ORDERABLES Final Result [facility] [address] [place] [address] * Vitamin B12, Serum (10/01/2024 12:28 PM EDT) Vitamin B12, Serum 500 210 - 1,033 pg/mL 10/01/2024 3:03 PM EDT [facility] Blood Venous blood specimen / Unknown Venipuncture / Unknown 10/01/2024 12:28 PM EDT 10/01/2024 12:29 PM EDT [facility] [place] LAB BLOOD ORDERABLES Final Result Performing Organization Address City/[facility] Co de Phone Number [facility] [address] [place] [address] * Vitamin B1 (Thiamine), Whole Blood (10/01/2024 12:28 PM EDT) VITAMIN B1, WHOLE BLOOD 162 70 - 180 nmol/L 10/04/2024 9:37 AM EDT [facility] ([facility]) Blood Venous blood specimen / Unknown Venipuncture / Unknown 10/01/2024 12:28 PM EDT 10/01/2024 12:29 PM EDT Narrative [facility]) - 10/04/2024 9:37 AM [...] developed and its performance characteristics determined by [employer] It has not been cleared or approved by the US Food and Drug Administration. This test was performed in a CLIA certified laboratory and is intended for clinical purposes. Performed By: [employer] [address] [place] [id number] Ammonia Still Operator: Frederick Garcia MD, PhD CLIA Number: [id number] [facility] [place] [facility] BLOOD ORDERABLES Final Result [facility] ([place]) [address] [place] [address] * PTH Intact Total (10/01/2024 12:28 PM EDT) PTH Intact Total 68 9 - 77 pg/mL 10/01/2024 3:33 PM EDT [facility] Blood Venous blood specimen / Unknown Venipuncture / Unknown 10/01/2024 12:28 PM EDT 10/01/2024 12:29 PM EDT Narrative [facility] - 10/01/2024 3:33 PM EDT Assay performed by immunoassay at the [facility]. Performed on [employer] Adviser chemiluminescent immunoassay, tractable to the World Health Organization's first international standard for PTH from the [facility], Code 79/500. Results obtained from different test methods or kits cannot be used interchangeably. [facility] B[facility]OD ORDER[facility] Final Result [facility] [address] [place] [address] * Vitamin D 25 Hydroxy (10/01/2024 12:28 PM EDT) Vitamin D 25 Hydroxy 34.1 20.0 - 80.0 ng/mL 10/01/2024 2:45 PM EDT [facility] Blood Venous blood specimen / Unknown Venipuncture / Unknown 10/01/2024 12:28 PM EDT 10/01/2024 12:29 PM EDT Narrative [facility] - 10/01/2024 2:45 PM EDT Testing performed on [employer] Adviser, standardized against NIST SRM 2972. When testing [...] [facility]TER[facility] LAB BLOOD ORDERABLES Final Result [facility] [address] [place] [address] * Iron & Total Iron Binding Capacity, Plasma (Includes Transferrin) (10/01/2024 12:28 PM EDT) Iron, Plasma 121 30 - 160 ug/dL 10/01/2024 2:28 PM EDT [facility] Transferrin, Plasma 243 200 - 360 mg/dL 10/01/2024 2:28 PM EDT [facility] Total Iron Binding Capacity, Plasma 304 240 - 450 ug/mL 10/01/2024 2:28 PM EDT [facility] Transferrin Saturation 40 14 - 50 % 10/01/2024 2:28 PM EDT [facility] Blood Venous blood specimen / Unknown Venipuncture / Unknown 10/01/2024 12:28 PM EDT 10/01/2024 12:29 PM EDT [facility] LAB BLOOD ORDERABLES Final Result Performing Organization Address [facility]/ZIP Co de Phone Number [facility] [address] [place] [address] * (ABNORMAL) Magnesium, Plasma (10/01/2024 12:28 PM EDT) Magnesium, Plasma 1.8(L) 1.9 - 2.4 mg/dL 10/01/2024 2:28 PM EDT [facility] Blood Venous blood specimen / Unknown Venipuncture / Unknown 10/01/2024 12:28 PM EDT 10/01/2024 12:29 PM EDT [facility] LAB BLOOD ORDERABLES Final Result Performing Organization Address City/[facility]/ZIP Co de Phone Number [facility] [address] [place] [address] * Phosphorus, Plasma (10/01/2024 12:28 PM EDT) Phosphorus, Plasma 3.8 2.5 - 4.5 mg/dL 10/01/2024 2:28 PM EDT [facility] Blood Venous blood specimen / Unknown Venipuncture / Unknown 10/01/2024 12:28 PM EDT 10/01/2024 12:29 PM EDT [facility] LAB BLOOD ORDERABLES Final Result [facility] [address] [place] [address] * Vitamin A (Retinol), Serum or Plasma (10/01/2024 12:28 PM EDT) Vitamin A (Retinyl Palmitate) <0.02 0.00 - 0.10 mg/L 10/04/2024 3:16 PM EDT [facility] ([employer]) VITAMIN A,SER/BETH-INTE RPRETATION Normal 10/04/2024 3:16 PM EDT [facility] ([employer]) Vitamin A (Retinol) 0.51 0.30 - 1.20 mg/L 10/04/2024 3:16 PM EDT [facility] ([employer]) Fasting greater than or equal to 12 hours? 10/04/2024 3:16 PM EDT [facility] ([employer]) Blood Venous blood specimen / Unknown Venipuncture / Unknown 10/01/2024 12:28 PM EDT 10/01/2024 12:29 PM EDT Narrative [facility] ([employer]) - 10/04/2024 3:16 PM EDT This test was developed and its performance characteristics determined by [employer] It has not been cleared or approved by the US Food and Drug Administration. This test was performed in a CLIA certified laboratory and is intended for clinical purposes. Performed By: [employer] [address] [place] [address] Ammonia Still Operator: Frederick Garcia MD, PhD CLIA Number: [id number] [facility] BLOOD ORDERABLES Final Result Performing Organization Address [facility] de Phone Number [facility] ([facility]) [address] [place] [address] * (ABNORMAL) Vitamin E, Serum or Plasma (10/01/2024 12:28 PM EDT) Vitamin E (Alpha-Tocophe rol) 4.4(L) 5.5 - 18.0 mg/L 10/04/2024 3:16 PM EDT [facility] ([facility]) Vitamin E (Gamma-Tocophe rol) 1.7 0.0 - 6.0 mg/L 10/04/2024 3:16 PM EDT [facility] ([facility]) Fasting greater than or equal to 12 hours? 10/04/2024 3:16 PM EDT [facility] ([facility]) Blood Venous blood specimen / Unknown Venipuncture / Unknown 10/01/2024 12:28 PM EDT 10/01/2024 12:29 PM EDT Narrative [facility] ([facility]) - 10/04/2024 3:16 PM EDT This test was developed and its performance characteristics determined by [employer] It has not been cleared or approved by the US Food and Drug Administration. This test was performed in a CLIA certified laboratory and is intended for clinical purposes. Performed By: [facility] [facility] [employer] [address] [id number] Ammonia Still Operator: Frederick Garcia MD, PhD CLIA Number: [id number] [facility] BLOOD ORDERABLES Final Result Performing Organization Address [facility] Co de Phone Number [facility] ([facility]) [address] [place] [address] documented in this encounter Visit Diagnoses Diagnosis [...] documented as of this encounter Care Teams Electric Meter Installer Helper Relationship Specialty Start Date End Date Garry Guerrier MD [address] [place] [address] PCP - General Family Medicine 06/15/23 Odalys Velásquez APRN [address] [place] [phone] Nurse Practitioner Internal Medicine 11/25/21 Susanne Richmond, RN [facility] Registered Nurse Cardiology 11/25/21 Jevon Cosme MD [address] [place] [phone] Consulting Physician Cardiology 05/25/22 Jinny Sequeira MD [address] [place] [address] Resident PGY-3 General Surgery 07/27/23 Carolina Woodward MD [address] [place] [phone] Consulting Physician Interventional Cardiology 12/12/23 documented as of this encounter
[2024-10-12 20:08] LABS: Coronavirus 19, PCR Not Detected (NotDetected); Influenza A, PCR Not Detected (NotDetected); Influenza B, PCR Not Detected (NotDetected)
--- OUTSIDE RECORDS SUMMARY | 2024-10-14 11:52 | XMS_ITS | Encounter Summary ---
Author Organization Healthcare Address [address] [place] [address] Care Team Providers Care Assistant Store Manager Name Role Phone Odalys Velásquez Romie WEIGHER PRODUCTION Unavailable [phone] Susanne Richmond RN Unavailable Unavailable Jevon Cosme MD Unavailable [phone] Garry Guerreir MD Primary Care Provider [phone] Jinny Sequeira MD Unavailable [phone] Carolina Woodward MD Unavailable [phone] Encounter Details Date Type Department Care Team (Latest Contact Info) Description 10/01/2024 Travel Social History Tobacco Use Types Packs/Day [...] any time in the past 12 m [facility], were you homeless or living in a [place] [facility] (including now)? 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 Never 10/01/2024 11:07 AM EDT Sunshine Fine Q2: How many drinks containing alcohol do you have on a typical day when you are drinking? Patient does not drink 10/01/2024 11:07 AM EDT Sunshine Fine Q3: How often do you have six or more drinks on one occasion? Never 10/01/2024 11:07 AM EDT Sunshine Fine * Over the past 2 weeks, how often have you been bothered by any of the following problems? Question Answer Date of Assessment Author Little interest or pleasure in doing things Not at all 10/01/2024 11:06 AM EDT Sunshine Sanchez Feeling down, depressed, or hopeless Not at all 10/01/2024 11:06 AM EDT Sunshine Fine Patient Health Questionnaire-2 Score 0 10/01/2024 11:06 AM EDT Sunshine Watson * Question Answer Date of Assessment Author Trouble falling or staying asleep, or sleeping too much Not at all 10/01/2024 11:06 AM EDT Sunshine Barreto Feeling tired or having little energy Not at all 10/01/2024 11:06 AM Sunshine Cronin Poor appetite or overeating Not at all 10/01/2024 11 :06 AM ARIST Sunshine Fine Feeling bad about yourself - or that you are a failure or have let yourself or your family down Not at all 10/01/2024 11:06 AM ARIST Sunshine Fine Trouble concentrating on things, such as reading the newspaper or watching television Not at all 10/01/2024 11:06 AM ARIST Sunshine Fine Moving or speaking so slowly that other people could have noticed? Or the opposite - being so fidgety or restless that you have been moving around a lot more than usual. Not at all 10/01/2024 11:06 AM Sunshine Cronin Thoughts that you would be better off or hurting yourself in some way Not at all 10/01/2024 11:06 AM Sunshine Cronin Patient Health Questionnaire-9 Score 0 10/01/2024 11:06 AM ARIST Sunshine Watson * If you checked off any problems on this questionnaire so far, Question Answer Date of Assessment Author How difficult have these problems made it for you to do your work, take care of things at home, or get along with other people? Not difficult at all 10/01/2024 11:06 AM Sunshine Cronin documented as of this encounter Plan of Treatment Upcoming Encounters Date Type Department Care Team (Late st Contact Info) Description 01/07/2025 10:45 AM EST Office Visit [facility] General & Weight Loss Surgery [address] [place] [address] Augustine Yao MD [address] [place] [phone] 04/21/2025 12:45 PM EST Appointment Cardiac Imaging [address] [place] [address] 04/21/2025 2:20 PM EST Office Visit [facility] [place] [address] [place] [address] Carolina Woodward MD [address] [place] [address] documented as of this encounter Visit Diagnoses [...] documented as of this encounter Care Teams Assistant Store Manager Relationship Specialty Start Date End Date Garry Guerrier MD [address] [place] [address] [address] [place] [address] PCP - General Family Medicine 06/15/23 Odalys Velásquez APRN [address] [place] [address] Nurse Practitioner Internal Medicine 11/25/21 Susanne Richmond RN [facility] Registered Nurse Cardiology 11/25/21 Jevon Cosme MD [address] [place] [phone] Consulting Physician Cardiology 05/25/22 Jinny Sequeira MD [address] [place] [address] Resident PGY-3 General Surgery 07/27/23 Carolina Woodward MD [address] [place] [address] Consulting Physician Interventional Cardiology 12/12/23 documented as of this encounter
--- OUTSIDE RECORDS SUMMARY | 2024-10-14 11:52 | XMS_ITS | Encounter Summary ---
Author Organization [facility] Address [address] [place] [address] Care Team Providers Care Sap Business Objects Developer Name Role Phone Nuris Bustillo RN Unavailable Unavailable Odalys Velásquez PHOTOGRAPHIC SPOTTER Unavailable [phone] Susanne Richmond RN Unavailable Unavailable Naveen Wynn MD Unavailable Jevon Cosme MD Unavailable [phone] Garry Guerrier MD Primary Care Provider [phone] Jinny Sequeira MD Unavailable [phone] Carolina Woodward MD Unavailable [phone] Reason for Visit * Reason Onset Date Comments Arrythmia 06/27/2023 Encounter Details Date Type Department Care Team (Late st Contact Info) Description 06/27/2023 Telephone [facility] Cardiology [address] [place] [address] Dandy Cerrato MD [address] [place] [address] Arrythmia Social History Tobacco Use [...] 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 [place] [phone] Carolina Woodward MD [address] [place] [phone] documented as of this encounter Visit Diagnoses [...] documented as of this encounter Care Teams Sap Business Objects Developer Relationship Specialty Start Date End Date Garry Guerrier MD [address] [place] [address] PCP - General Family Medicine 06/15/23 Nuris Bustillo, RN [facility] Registered Nurse 11/25/21 03/24/24 Odalys Velásquez APRN [address] [place] [phone] Nurse Practitioner Internal Medicine 11/25/21 Susanne Richmond RN [facility] Registered Nurse Cardiology 11/25/21 Naveen Wynn MD [address] [place] [phone] Consulting Physician Pediatric Cardiology 01/05/22 Jevon Cosme MD [address] [place] [phone] Consulting Physician Cardiology 05/25/22 Jinny Sequeira MD [address] [place] [address] Resident PGY-3 General Surgery 07/27/23 Carolina Woodward MD [address] [place] [phone] Consulting Physician Interventional Cardiology 12/12/23 documented as of this encounter
--- OUTSIDE RECORDS SUMMARY | 2024-10-14 11:52 | XMS_ITS | Clinical Summary ---
Author Organization [facility] Address [address] [place] [address] Care Team Providers Care Piece Maker Name Role Phone Valerie Reyes APRN Primary Care Provider [phone] Allergies Active Allergy Reactions Criticality Noted Date Comments Cefprozil Nausea And Vomiting, Unknown (See Comments) Low 08/29/2013 Esmolol Unknown - Low Severity 08/12/2022 Lisinopril Other (See Comments) Low 09/11/2017 cough Methocarbamol Itching,Unknown (See Comments) Medium Medications sotalol (BETAPACE) 120 MG tablet Take 1 tablet by mouth. 08/02/2022 Active busPIRone (BUSPAR) 15 MG tablet 0.5 tablets Daily. 01/12/2024 Active Rexulti 3 MG tablet 01/14/2024 Active meloxicam (MOBIC) 15 MG tablet Take 1 tablet by mouth Daily. Active lamoTRIgine (LaMICtal) 25 MG tablet 12/20/2023 Active traMADol (ULTRAM) 50 MG tablet Take 1 tablet by mouth Every 6 (Six) Hours As Needed for Moderate Pain. Active furosemide (LASIX) 20 MG tablet Take 1 tablet by mouth As Needed. 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 Immunizations Immunization Administration Dates Next Due COVID-19 (MODERNA) 1st,2nd,3rd Dose Monovalent 0 06/10/2020,05/13/2020 Tdap 06/26/2018 Family History Medical History Relation Name Comments Hypertension Father Irritable bowel syndrome Father Crohn's disease Mother Thyroid disease Mother Relation Name Status Comments Father Alive Mother Alive Social History Tobacco Use Types Packs/Day Years Used Date Smoking Tobacco: Never Smokeless Tobacco: Never Tobacco Cessation:Counseling Given: Not Answered Alcohol Use Standard Drinks/Week Comments Yes 0 (1 standard drink = 0.6 oz pur e alcohol) Occ PHQ-2 Answer Date Recorded Retired PHQ-9: Brief Depression Severity Measure Score 1 08/12/2022 PHQ-2 Answer Date Recorded Retired PHQ-9: Brief Depression Severity Measure Score 1 08/12/2022 Comments Unknown Sex and Gender Information Value Date Recorded Sex Assigned at Not on file Legal Sex Female 3:07 PM EDT Gender Identity Not on file Sexual Orientation Not on file Last Filed Vital Signs Vital Sign Reading Time Taken Comments Blood Pressure 128/78 01/16/2024 10:58 AM EST Pulse 67 01/16/2024 10:58 AM EST Temperature 36.8 C (98.2 F) 08/12/2022 11:27 AM EDT Respiratory Rate 18 08/12/2022 11:27 AM EDT Oxygen Saturation 97% 01/16/2024 10:58 AM EST Inhaled Oxygen Concentration - - Weight 162 kg (358 lb) 01/16/2024 10:58 AM EST Height 177.8 cm (5' 10 ) 01/16/2024 10:58 AM EST Body Mass Index 51.37 01/16/2024 10:58 AM EST Plan of Treatment Health Maintenance Due Date Last Done Comments Annual Gynecologic Pelvic an d Breast Exam 1998 HPV VACCINES (1 - 3-dose series) 2013 PAP SMEAR 10/09/2019 ANNUAL PHYSICAL 12/29/2021 COVID-19 Vaccine (3 - 2023-2 5 season) 2023 06/10/2020, 05/13/2020 INFLUENZA VACCINE 11/27/2024 TDAP/TD VACCINES (2 - Td or Tdap) 06/26/2028 06/26/2018 HEPATITIS C SCREENING Completed 08/02/2023 , 05/28/2021 Pneumococcal Vaccine 0-49 Aged Out No longer eligible based on patient's age to complete this topic Insurance [facility] PPO Care Teams Piece Maker Relationship Specialty Start Date End Date Valerie Reyes APRN [address] [place] [address] PCP - General Nurse Practitioner 01/09/24
--- OUTSIDE RECORDS SUMMARY | 2024-10-14 11:52 | XMS_ITS | Clinical Summary ---
Author Organization [facility] Address [facility] [place] [address] Care Team Providers Care Sample Processor Name Role Phone Stephen Stoddard M.D. Primary Care Provider [phone] Source Comments [facility] is fully rolled out with thefollowing exceptions:[facility] Allergies Active Allergy Reactions Criticality Noted Date Comments Cefzil Nausea and Vomiting 06/30/2016 Medications lisinopril (PRINIVIL) 10 MG tablet Take 10 mg by mouth. Active cetirizine (ZyrTEC) 10 MG tablet Take 10 mg by mouth 1 time a day. 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 Yes 06/30/2016 Safe in relationship? (18 and older) Not on file 06/30/2016 Safety and Environment Answer Date Jason rded Do you have any concerns of physical abuse, sexual abuse, or neglect of your child? No 06/30/2016 Adult hurting you or family (11-18) Not on file 06/30/2016 Someone touched you in a sexual way? (11-18) Not on file 06/30/2016 Someone hurting you or family (18 and older) Not on file 06/30/2016 Historical abuse worry Not on file 7 If you have firearms in the home, are they all in locked storage AND unloaded? Not on file 06/30/2016 Comments Unknown Sex and Gender Information Value Date Recorded Sex Assigned at Not on file Legal Sex Female 3:50 PM EDT Gender Identity Not on file Sexual Orientation Not on file Last Filed Vital Signs Vital Sign Reading Time Taken Comments Blood Pressure 121/70 07/02/2016 11:21 AM EDT Pulse 86 07/02/2016 10:05 AM EDT Temperature 36.5 C (97.7 F) 07/02/2016 8:00 AM EDT Respiratory Rate 22 07/02/2016 10:05 AM EDT Oxygen Saturation 98% 07/02/2016 10:05 AM EDT Inhaled Oxygen Concentration - - Weight 149.8 kg (330 lb 4 oz) 07/01/2016 6:00 AM EDT Height 180.3 cm (5' 11 ) 06/30/2016 3:00 PM EDT Body Mass Index 46.06 06/30/2016 3:00 PM EDT Plan of Treatment Health Maintenance Due Date Last Done Comments MMR IMMUNIZATION (1 of 1 - S tandard series) 10/09/1999 DTAP/Tdap/Td IMMUNIZATION (1 - Tdap) 2005 VARICELLA IMMUNIZATION (1 of 2 - 13+ 2-dose series) 10/09/2011 HPV IMMUNIZATION (1 - 3-dose series) 2013 HEPATITIS B IMMUNIZATION (1 of 3 - 19+ 3-dose series) 2017 COVID-19 Vaccine ( - 2023-2 5 season) 2023 AMB SEASONAL FLU VACCINE (#1) 12/28/2024 HIB IMMUNIZATION Aged Out No longer e ligible based on patient's age to complete this topic IPV IMMUNIZATION Aged Out No longer e ligible based on patient's age to complete this topic MCV4 IMMUNIZATION Aged Out No longer eligible based on patient's age to complete this topic MENINGOCOCCAL B VACCINE Aged Out No l onger eligible based on patient's age to complete this topic PNEUMOCOCCAL IMMUNIZATION Aged Out No longer eligible based on patient's age to complete this topic Respiratory Syncytial Virus (RSV) <20mo Aged Out No longer eligible b ased on patient's age to complete this topic Insurance on file Care Teams Sample Processor Relationship Specialty Start Date End Date Stephen Stoddard M.D. [address], [facility] [place] [address] PCP - General 06/30/16
--- OUTSIDE RECORDS SUMMARY | 2024-10-14 11:52 | XMS_ITS | Encounter Summary ---
Author Organization [facility] Address [address] [place] [address] Care Team Providers Care Package Maker Name Role Phone Stephen Stoddard MD Primary Care Provider [phone] Nuris Bustillo RN Unavailable Unavailable Odalys Velásquez APRN Unavailable [phone] Susanne Richmond RN Unavailable Unavailable Naveen Wynn MD Unavailable Cheyanne Whitmore DO Primary Care Provider [phone] Jevon Cosme MD Unavailable [phone] Garry Guerrier MD Primary Care Provider [phone] Jinny Sequeira MD Unavailable [phone] Carolina Woodward MD Unavailable [phone] Reason for Visit * Reason Comments Med Refill Encounter Details Date Type Department Care Team (Late st Contact Info) Description 03/07/2022 Refill ID Clinic Pediatric Cardiology [address] [place] [address] Dandy Cerrato MD [address] [place] [address] Atrial tachycardia (CMS/HCC) (Primary Dx) [...] Description 01/07/2025 10:45 AM EST Office Visit [facility] [address] [place] [address] Augustine Yao MD [address] [facility] [address] [place] [address] 04/21/2025 12:45 PM EST Appointment Cardiac Imaging [address] [place] [address] 04/21/2025 2:20 PM EST Office Visit [facility] [address] [place] [address] Carolina Woodward MD [address] [place] [phone] documented as of this encounter Visit Diagnoses [...] documented as of this encounter Care Teams Package Maker Relationship Specialty Start Date End Date Stephen Stoddard MD [address] [place] [address] PCP - General 07/10/20 03/29/22 Cheyanne Whitmore DO [address] [place], [place] [id number] PCP - General 03/30/22 06/14/23 Garry Guerrier MD [address] [place] [address] [address] [place] [address] PCP - General Family Medicine 06/15/23 Nuris Bustillo, RN [facility] Registered Nurse 11/25/21 03/24/24 Odalys Velásquez, [employer] [address] [place] [address] Nurse Practitioner Internal Medicine 11/25/21 Susanne Richmond RN [facility] Registered Nurse Cardiology 11/25/21 Naveen Wynn MD [address] [place] [address] Consulting Physician Pediatric Cardiology 01/05/22 Jevon Cosme MD [address] [place] [address] Consulting Physician Cardiology 05/25/22 Jinny Sequeira MD [address] [place] [address] Resident PGY-3 General Surgery 07/27/23 Carolina Woodward MD [address] [place] [address] Consulting Physician Interventional Cardiology 12/12/23 documented as of this encounter
--- OUTSIDE RECORDS SUMMARY | 2024-10-14 11:52 | XMS_ITS | Clinical Summary ---
Author Organization [facility] Address [address] [place] [place] [address] Care Team Providers Care Felt Checker Name Role Phone Odalys Velásquez Romie VP OF TECHNOLOGY Unavailable [phone] Susanne Richmond RN Unavailable Unavailable Jevon Cosme MD Unavailable [phone] Garry Guerrier MD Primary Care Provider [phone] Jinny Sequeira MD Unavailable [phone] Carolina Woodward MD Unavailable [phone] Allergies Active Allergy Reactions Criticality Noted [...] needed for flatulence. 30 tablet 5 Active Additional Information Patient not taking.Reported on 10/01/2024 cyclobenzaprine (Flexeril) 10 MG tablet Take 1 tablet (10 mg) by mouth 3 (three) times a day. 30 tablet 5 Active Additional Information Patient not taking.Reported on 10/01/2024 dilTIAZem (Cardizem) 60 MG immediate release tablet Take 1 tablet (60 mg) by mouth as needed (as needed for tachy arrhythmias). 30 tablet 1 5 Active sotalol (Betapace) 160 MG tabletIndication s:Atrial tachycardia (CMS/HCC) Take 1 tablet by mouth every 12 hours. 180 tablet 3 5 06/29/19 26 Active Ozempic, 1 MG/DOSE, 4 MG/3ML solution pen-injector 1 mg. 5 Active Active Problems Problem Noted Date Diagnosed Date BMI 45.0-49.9, adult 10/01/2024 Assessment & Plan (10/01/2024 11:53 AM EDT): Orders: Vitamin E, Serum or Plasma; Future [...] Differential; Future Comprehensive Metabolic Panel, Plasma; Future S/P gastric sleeve procedure 08/07/2023 Assessment & Plan (10/01/2024 11:53 AM EDT): Orders: Vitamin E, Serum or Plasma; Future [...] Differential; Future Comprehensive Metabolic Panel, Plasma; Future Gout 09/23/2022 Anxiety and depression 09/23/2022 Overview (03/26/2024): Home regimen: Buspar, Rexulti PLAN: - Restart home medications when appropriate Assessment & Plan (10/01/2024 11:53 AM EDT): Transposition great arteries 09/23/2022 L-TGA, 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/21/2022 Hidradenitis suppurativa 12/29/2021 Multiple joint pain 08/11/2021 Assessment & Plan (10/01/2024 11:53 AM EDT): Orders: Vitamin E, Serum or Plasma; Future [...] Differential; Future Comprehensive Metabolic Panel, Plasma; Future Heart attack 03/22/2021 PHYLICIA (obstructive sleep apnea) 12/03/2020 Overview (03/26/2024): - Good compliance with CPAP at home PLAN: - Continue CPAP nightly Assessment & Plan (10/01/2024 11:53 AM EDT): Orders: Vitamin E, Serum or Plasma; Future [...] Differential; Future Comprehensive Metabolic Panel, Plasma; Future Heart failure 04/10/2020 Assessment & Plan (10/01/2024 11:53 AM EDT): Orders: Vitamin E, Serum or Plasma; Future [...] Differential; Future Comprehensive Metabolic Panel, Plasma; Future Palpitations 09/11/2017 AVNRT (AV juan re-entry tachycardia) [...] sotalol - Complicates all aspects of care Assessment & Plan (10/01/2024 11:53 AM EDT): Transposition of great arteries, D-loop 08/30/19 14 Overview (03/26/2024): See situs inversus VSD (ventricular septal defect) 08/29/2013 Resolved Problems Problem Noted Date Diagnosed Date Resolved Date Cholelithiasis 03/24/2024 10/01/2024 Cholelithiasis without cholangitis 03/24/2024 10/01/2024 Gallbladder sludge 03/24/2024 Gastroesophageal reflux disease 04/06/2023 03/24/2024 Overview (07/27/2023): [...] 07/27/2023 Anxiety 03/18/2021 07/27/2023 Depression 03/18/2021 07/27/2023 Morbid obesity with BMI of 50.0-59.9, adult 12/03/2020 10/01/2024 Overview (03/26/2024): BMI 50.2 07/27/23: Laparoscopic Sleeve Gastrectomy Complicates all aspects of care Dyspepsia 12/03/2020 07/27/2023 Atrial fibrillation with RVR 09/21/2018 03/24/2024 Overview (07/28/2023): HX of Continue home Sotalol Reportedly uses Diltiazem as breakthrough 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, 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 Atrial tachycardia, paroxysmal 09/19/2018 03/24/2024 Metatarsal fracture 07/27/2018 07/27/19 Pilon fracture 07/27/2018 07/27/2023 Wrist pain 07/26/2018 07/27/2023 Hypertension 12/16/2016 03/24/2024 Overview (07/27/2023): Goal of Normotension PRN Hydralazine and Labetalol Resume home medications as appropriate Pulmonary subvalvular stenosis 08/29/2013 03/24/2024 Encounters Date Type Department Care Team Description 10/03/2024 Outside Procedure [facility] Pediatric Cardiology [address] [place] [address] Allison Crouch RN 10/01/2024 11:15 AM EDT Office Visit [facility] General & Weight Loss Surgery [address] [place] [address] Augustine Yao MD S/P gastric sleeve procedure (Primary Dx); BMI 45.0-49.9, adult (CMS/HCC); PHYLICIA (obstructive sleep apnea); Multiple joint pain; Situs inversus; Anxiety and depression; Other heart failure; Palpitations 10/01/2024 Travel from Last 3 Months Immunizations Immunization [...] any time in the past 12 m [facility], were you homeless or living in a halfway (including now)? 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) to steady your nerves or to get [...] Pulse 83 10/01/2024 11:05 AM EDT Temperature 36.4 C (97.6 F) 05/24/2024 2:57 AM EDT Respiratory Rate 16 10/01/2024 11:05 AM EDT Oxygen Saturation 95% 10/01/2024 11:05 AM EDT Inhaled Oxygen Concentration - - Weight 161 kg (354 lb 12.8 oz) 10/01/2024 11:05 AM EDT Height 180.3 cm (5' 11 ) 10/01/2024 11:05 AM EDT Body Mass Index 49.48 10/01/2024 11:05 AM EDT Plan of Treatment Upcoming Encounters Date Type Department Care Team (Late st Contact Info) Description 01/07/2025 10:45 AM EST Office Visit [facility] General & Weight Loss Surgery [address] [place] [address] Augustine Yao MD [address] [place] [phone] 04/21/2025 12:45 PM EST Appointment Cardiac Imaging [address] [place] [address] 04/21/2025 2:20 PM EST Office Visit [facility] [address] [place] [address] Carolina Woodward MD [address] [place] [address] Health Maintenance Due Date Last Done Comments [facility]-Infant/Child/Adol SDOH Screenings 1998 [facility]-Varicella Vaccines (1 of 2 - 13+ 2-dose series) 10/09/2011 HPV Vaccines (1 - 3-dose series) 2013 [facility]-Hepatitis B Vaccines (1 of 3 - 19+ 3-dose series) 2017 [facility]-Pap Smear 10/09/2019 [id number] Vaccine (3 - 2023- season) 2023 06/10/2020, 05/13/2020 [facility]- SDOH Screenings 09/22/2024 [facility]-Adult SDOH Screenings 09/22/2024 03/25/2024 [facility]-Influenza Vaccine (#1) 2024 [facility]-Depression Screening 10/01/2025 10/01/2024, 0806/2024 [facility]-DTaP,Tdap,and Td Vaccines (2 - Td or Tdap) 06/26/2028 06/26/2018 [facility]-Zoster Vaccines (1 of 2) 2048 [facility]-HIV Screening Completed 08/02/2023, 05/28/2021 [facility]-Hepatitis C Screening Completed 08/02/2023, 02/2021 [facility]-Obesity Intervention Completed 025, 06/27/2024, 04/22/2024, Additional history exists [facility]-HIB Vaccines Aged Out [...] this topic Medical Devices Implanted Type Area Pipe Line Repairer Device Identifier Shelf Expiration Date Model / Serial / Lot Plate Plate Right: Leg Screw Screw Right: Leg Procedures Procedure Name Priority Date/Time Associated Diagnosis Comments VITAMIN E, SERUM OR PLASMA (SO) Routine 10/01/2024 12:28 PM EDT S/P gastric sleeve procedure BMI 45.0-49.9, adult (CMS/HCC) PHYLICIA (obstructive sleep apnea) Multiple joint pain Other heart failure VITAMIN A (RETINOL), SERUM OR PLASMA (SO) Routine 10/01/2024 12:28 PM EDT S/P gastric sleeve procedure BMI 45.0-49.9, adult (CMS/HCC) PHYLICIA (obstructive sleep apnea) Multiple joint pain Other heart failure PHOSPHORUS, PLASMA Routine 10/01/2024 12 :28 PM EDT S/P gastric sleeve procedure BMI 45.0-49.9, adult (CMS/HCC) PHYLICIA (obstructive sleep apnea) Multiple joint pain Other heart failure MAGNESIUM, PLASMA Routine 10/01/2024 12: 28 PM EDT S/P gastric sleeve procedure BMI 45.0-49.9, adult (CMS/HCC) PHYLICIA (obstructive sleep apnea) Multiple joint pain Other heart failure IRON & TOTAL IRON BINDING CAPACITY, PLASMA (INCLUDES TRANSFERRIN) Routine 10/01/2024 12:28 PM EDT S/P gastric sleeve procedure BMI 45.0-49.9, adult (CMS/HCC) PHYLICIA (obstructive sleep apnea) Multiple joint pain Other heart failure VITAMIN D 25 HYDROXY Routine 10/01/2024 12:28 PM EDT S/P gastric sleeve procedure BMI 45.0-49.9, adult (CMS/HCC) PHYLICIA (obstructive sleep apnea) Multiple joint pain Other heart failure PTH INTACT TOTAL Routine 10/01/2024 12:2 8 PM EDT S/P gastric sleeve procedure BMI 45.0-49.9, adult (CMS/HCC) PHYLICIA (obstructive sleep apnea) Multiple joint pain Other heart failure VITAMIN B1 (THIAMINE), WHOLE BLOOD (SO) Routine 10/01/2024 12:28 PM EDT S/P gastric sleeve procedure BMI 45.0-49.9, adult (CMS/HCC) PHYLICIA (obstructive sleep apnea) Multiple joint pain Other heart failure VITAMIN B12, SERUM Routine 10/01/2024 12 :28 PM EDT S/P gastric sleeve procedure BMI 45.0-49.9, adult (CMS/HCC) PHYLICIA (obstructive sleep apnea) Multiple joint pain Other heart failure FOLATE, SERUM Routine 10/01/2024 12:28 PM EDT S/P gastric sleeve procedure BMI 45.0-49.9, adult (CMS/HCC) PHYLICIA (obstructive sleep apnea) Multiple joint pain Other heart failure FERRITIN, SERUM Routine 10/01/2024 12:28 PM EDT S/P gastric sleeve procedure BMI 45.0-49.9, adult (CMS/HCC) PHYLICIA (obstructive sleep apnea) Multiple joint pain Other heart failure CBC WITH AUTO DIFFERENTIAL Routine 10/01/2024 12:28 PM EDT S/P gastric sleeve procedure BMI 45.0-49.9, adult (CMS/HCC) PHYLICIA (obstructive sleep apnea) Multiple joint pain Other heart failure COMPREHENSIVE METABOLIC PANEL, PLASMA Routine 10/01/2024 12:28 PM EDT S/P gastric sleeve procedure BMI 45.0-49.9, adult (CMS/HCC) PHYLICIA (obstructive sleep apnea) Multiple joint pain Other heart failure HEPATITIS C ANTIBODY - ED W/REFLEX TO HCV QUANT PCR STAT 08/02/2023 6:45 PM EDT ED HIV 1/2 ANTIBODY/ANTIGEN SCREEN WITH REFLEX TO HIV I/II DIFFERENTIATION STAT 08/02/2023 6:45 PM EDT from Last 3 Months or Most Recently Relevant to Health Maintenance Results * Iron & Total Iron Binding Capacity, Plasma (Includes Transferrin) (10/01/2024 12:28 PM EDT) Iron, Plasma 121 30 - 160 ug/dL 10/01/2024 2:28 PM EDT [facility] Transferrin, Plasma 243 200 - 360 mg/dL 10/01/2024 2:28 PM EDT [facility] Total Iron Binding Capacity, Plasma 304 240 - 450 ug/mL 10/01/2024 2:28 PM EDT [facility] Transferrin Saturation 40 14 - 50 % 10/01/2024 2:28 PM EDT [facility] Blood Venous blood specimen / Unknown Venipuncture / Unknown 10/01/2024 12:28 PM EDT 10/01/2024 12:29 PM EDT Ivory MONTERO LAB BLOOD ORDERABLES Final Result [facility] [address] [place] [address] * Vitamin A (Retinol), Serum or Plasma (10/01/2024 12:28 PM EDT) Vitamin A (Retinyl Palmitate) <0.02 0.00 - 0.10 mg/L 10/04/2024 3:16 PM EDT [facility] ([facility]) VITAMIN A,SER/BETH-INTE RPRETATION Normal 10/04/2024 3:16 PM EDT [facility]) Vitamin A (Retinol) 0.51 0.30 - 1.20 mg/L 10/04/2024 3:16 PM EDT [facility]) Fasting greater than or equal to 12 hours? 10/04/2024 3:16 PM EDT [facility]) Blood Venous blood specimen / Unknown Venipuncture / Unknown 10/01/2024 12:28 PM EDT 10/01/2024 12:29 PM EDT Narrative [facility]) - 10/04/2024 3:16 PM EDT This test was developed and its performance characteristics determined by [facility]. It has not been cleared or approved by the US Food and Drug Administration. This test was performed in a CLIA certified laboratory and is intended for clinical purposes. Performed By: [facility] [address] [place] [address] Head Tennis Coach: Frederick Garcia MD, PhD CLIA Number: [id number] [facility] LAB BLOOD ORDERABLES Final Result Performing Organization Address City/[facility]/ZIP Co de Phone Number [facility] ([facility]) [address] [place] [address] * Vitamin D 25 Hydroxy (10/01/2024 12:28 PM EDT) Pathologist [facility] Vitamin D 25 Hydroxy 34.1 20.0 - 80.0 ng/mL 10/01/2024 2:45 PM EDT [facility] Blood Venous blood specimen / Unknown Venipuncture / Unknown 10/01/2024 12:28 PM EDT 10/01/2024 12:29 PM EDT Narrative [facility] - 10/01/2024 2:45 PM EDT Testing performed on [employer] Specialist, standardized against NIST SRM [id number]. When testing [...] Ivory MONTERO LAB BLOOD ORDERABLES Final Result [facility] [address] [place] [place] [address] * (ABNORMAL) CBC and Differential (10/01/2024 12:28 PM EDT) WBC Count 8.59 3.70 - 10.30 10*3/uL LAB HEMATOLOGY METHOD 10/01/2024 2:22 PM EDT [facility] RBC Count 5.18 3.90 - 5.20 10*6/uL LAB HEMATOLOGY METHOD 10/01/2024 2:22 PM EDT [facility] HGB 15.3 11.2 - 15.7 g/dL LAB HEMATOLOGY METHOD 10/01/2024 2:22 PM EDT [facility] HCT 46.4(H) 34.0 - 45.0 % LAB HEMATOLOGY METHOD 10/01/2024 2:22 PM EDT [facility] Platelet Count 261 155 - 369 10*3/uL LAB HEMATOLOGY METHOD 10/01/2024 2:22 PM EDT [facility] MCV 90 79 - 98 fL LAB HEMATOLOGY METHOD 10/01/2024 2:22 PM EDT [facility] MCH 29.5 26.0 - 32.0 pg LAB HEMATOLOGY METHOD 10/01/2024 2:22 PM EDT [facility] MCHC 33.0 30.7 - 35.5 g/dL LAB HEMATOLOGY METHOD 10/01/2024 2:22 PM EDT [facility] RDW 12.8 11.5 - 14.5 % LAB HEMATOLOGY METHOD 10/01/2024 2:22 PM EDT [facility] MPV 10.4 8.8 - 12.5 fL LAB HEMATOLOGY METHOD 10/01/2024 2:22 PM EDT [facility] nRBC 0.0 <=0.0 per 100 WBCs LAB HEMATOLOGY METHOD 10/01/2024 2:22 PM EDT [facility] Differential Type Automated LAB HEMATOLOGY METHOD 10/01/2024 2:22 PM EDT [facility] Neutrophils % 73 % LAB HEMATOLOGY METHOD 10/01/2024 2:22 PM EDT [facility] Lymphocytes % 17 % LAB HEMATOLOGY METHOD 10/01/2024 2:22 PM EDT [facility] Monocytes % 7 % LAB HEMATOLOGY METHOD 10/01/2024 2:22 PM EDT [facility] Eosinophils % 2 % LAB HEMATOLOGY METHOD 10/01/2024 2:22 PM EDT [facility] Basophils % 0 % LAB HEMATOLOGY METHOD 10/01/2024 2:22 PM EDT [facility] Immature Granulocytes % 1 % LAB HEMATOLOGY METHOD 10/01/2024 2:22 PM EDT [facility] Neutrophils Absolute 6.32(H) 1.60 - 6.10 10*3/uL LAB HEMATOLOGY METHOD 10/01/2024 2:22 PM EDT [facility] Lymphocytes Absolute 1.45 1.20 - 3.90 10*3/uL LAB HEMATOLOGY METHOD 10/01/2024 2:22 PM EDT [facility] Monocytes Absolute 0.56 0.30 - 0.90 10*3/uL LAB HEMATOLOGY METHOD 10/01/2024 2:22 PM EDT [facility] Eosinophils Absolute 0.17 0.00 - 0.50 10*3/uL LAB HEMATOLOGY METHOD 10/01/2024 2:22 PM EDT [facility] Basophils Absolute 0.03 0.00 - 0.10 10*3/uL LAB HEMATOLOGY METHOD 10/01/2024 2:22 PM EDT [facility] Immature Granulocytes Absolute 0.06 0.00 - 0.06 10*3/uL LAB HEMATOLOGY METHOD 10/01/2024 2:22 PM EDT [facility] Blood Venous blood specimen / Unknown Venipuncture / Unknown 10/01/2024 12:28 PM EDT 10/01/2024 12:29 PM EDT Narrative [facility] - 10/01/2024 2:22 PM EDT Therapeutic decision making should be based on absolute values, rather than percentages. Ivory [facility] LAB BLOOD ORDERABLES Final Result [facility] [address] [place] [address] * (ABNORMAL) Vitamin E, Serum or Plasma (10/01/2024 12:28 PM EDT) Vitamin E (Alpha-Tocophe rol) 4.4(L) 5.5 - 18.0 mg/L 10/04/2024 3:16 PM EDT [facility] ([facility]) Vitamin E (Gamma-Tocophe rol) 1.7 0.0 - 6.0 mg/L 10/04/2024 3:16 PM EDT [facility] ([facility]) Fasting greater than or equal to 12 hours? 10/04/2024 3:16 PM EDT [facility] ([facility]) Blood Venous blood specimen / Unknown Venipuncture / Unknown 10/01/2024 12:28 PM EDT 10/01/2024 12:29 PM EDT Mani [facility]) - 10/04/2024 3:16 PM EDT This test was developed and its performance characteristics determined by [facility]. It has not been cleared or approved by the US Food and Drug Administration. This test was performed in a CLIA certified laboratory and is intended for clinical purposes. Performed By: [email or web address] [address] [place] [address] Head Tennis Coach: Frederick Garcia MD, PhD CLIA Number: [id number] [facility] LAB BLOOD ORDERABLES Final Result Performing Organization Address City/[facility] Co de Phone Number [facility]) [address] [place] [address] * Vitamin B1 (Thiamine), Whole Blood (10/01/2024 12:28 PM EDT) VITAMIN B1, WHOLE BLOOD 162 70 - 180 nmol/L 10/04/2024 9:37 AM EDT [facility]) Blood Venous blood specimen / Unknown Venipuncture / Unknown 10/01/2024 12:28 PM EDT 10/01/2024 12:29 PM EDT Mani [facility]) - 10/04/2024 9:37 AM EDT INTERPRETIVE INFORMATION: Vitamin B1, Whole Blood This assay measures the concentration of thiamine diphosphate (TDP), the primary active form of vitamin B1. Approximately 90 percent of vitamin B1 present in whole blood is TDP. Thiamine and thiamine monophosphate, which comprise the remaining 10 percent, are not measured. This test was developed and its performance characteristics determined by [facility]. It has not been cleared or approved by the US Food and Drug Administration. This test was performed in a CLIA certified laboratory and is intended for clinical purposes. Performed By: [facility] [address] [place] [address] Head Tennis Coach: Frederick Garcia MD, PhD CLIA Number: [id number] [facility] LAB BLOOD ORDERABLES Final Result [facility] ([facility] [address] [place] [address] * Phosphorus, Plasma (10/01/2024 12:28 PM EDT) Phosphorus, Plasma 3.8 2.5 - 4.5 mg/dL 10/01/2024 2:28 PM EDT [facility] Blood Venous blood specimen / Unknown Venipuncture / Unknown 10/01/2024 12:28 PM EDT 10/01/2024 12:29 PM EDT Iv[facility] Renae [place] LAB BLOOD ORDERABLES Final Result Performing Organization Address City/[facility]/ZIP Co de Phone Number [facility] [address] [place] [address] * PTH Intact Total (10/01/2024 12:28 PM EDT) PTH Intact Total 68 9 - 77 pg/mL 10/01/2024 3:33 PM EDT [facility] Blood Venous blood specimen / Unknown Venipuncture / Unknown 10/01/2024 12:28 PM EDT 10/01/2024 12:29 PM EDT Narrative [facility] - 10/01/2024 3:33 PM EDT Assay performed by immunoassay at the [facility]. Performed on [employer] chemiluminescent immunoassay, tractable to the World Health Organization's first international standard for PTH from the NIBS, Code 79/500. Results obtained from different test methods or kits cannot be used interchangeably. [facility] LAB BLOOD ORDERABLES Final Result [facility] [address] [place] [address] * (ABNORMAL) Magnesium, Plasma (10/01/2024 12:28 PM EDT) Magnesium, Plasma 1.8(L) 1.9 - 2.4 mg/dL 10/01/2024 2:28 PM EDT [facility] Blood Venous blood specimen / Unknown Venipuncture / Unknown 10/01/2024 12:28 PM EDT 10/01/2024 12:29 PM EDT Iv[facility] Renae [place] LAB BLOOD ORDERABLES Final Result [facility] [address] [place] [address] * Folate, Serum (10/01/2024 12:28 PM EDT) Folate, Serum 7.5 >4.6 ng/mL 10/01/2024 2:48 PM EDT [facility] Blood Venous blood specimen / Unknown Venipuncture / Unknown 10/01/2024 12:28 PM EDT 10/01/2024 12:29 PM EDT Iv[facility]TER[facility] LAB BLOOD ORDERABLES Final Result Performing Organization Address [facility]/ZIP Co de Phone Number [facility] [address] [place] [address] * (ABNORMAL) Ferritin, Serum (10/01/2024 12:28 PM EDT) Ferritin, Serum 173(H) 13 - 150 ng/mL 10/01/2024 3:03 PM EDT [facility] Blood Venous blood specimen / Unknown Venipuncture / Unknown 10/01/2024 12:28 PM EDT 10/01/2024 12:29 PM EDT Ivory Tk Renae [place] LAB BLOOD ORDERABLES Final Result [facility] [address] [place] [address] * Vitamin B12, Serum (10/01/2024 12:28 PM EDT) Vitamin B12, Serum 500 210 - 1,033 pg/mL 10/01/2024 3:03 PM EDT [facility] Blood Venous blood specimen / Unknown Venipuncture / Unknown 10/01/2024 12:28 PM EDT 10/01/2024 12:29 PM EDT Iv[facility]TERO LAB BLOOD ORDERABLES Final Result [facility] [address] [place] [address] * (ABNORMAL) Comprehensive Metabolic Panel, Plasma (10/01/2024 12:28 PM EDT) Glucose, Plasma 84 74 - 99 mg/dL 10/01/2024 2:28 PM EDT [facility] BUN, Plasma 17 7 - 21 mg/dL 10/01/2024 2:28 PM EDT [facility] Creatinine, Plasma 0.75 0.60 - 1.10 mg/dL 10/01/2024 2:28 PM EDT [facility] BUN/Creatinine Ratio 23 10/01/2024 2:28 PM EDT [facility] Sodium, Plasma 143 136 - 145 mmol/L 10/01/2024 2:28 PM EDT [facility] Potassium, Plasma 4.9 3.6 - 4.9 mmol/L 10/01/2024 2:28 PM EDT [facility] Chloride, Plasma 110(H) 97 - 107 mmol/L 10/01/2024 2:28 PM EDT [facility] CO2, Plasma 22 22 - 29 mmol/L 10/01/2024 2:28 PM EDT [facility] Anion Gap 11 6 - 16 mmol/L 10/01/2024 2:28 PM EDT [facility] Total Calcium, Plasma 9.8 8.9 - 10.2 mg/dL 10/01/2024 2:28 PM EDT [facility] Total Protein 7.5 6.3 - 7.9 g/dL 10/01/2024 2:28 PM EDT [facility] Albumin, Plasma 4.3 3.5 - 5.2 g/dL 10/01/2024 2:28 PM EDT [facility] AST, Plasma 22 10 - 35 U/L 10/01/2024 2:28 PM EDT [facility] ALT, Plasma 26 10 - 35 U/L 10/01/2024 2:28 PM EDT [facility] Alkaline Phosphatase, Plasma 111(H) 35 - 104 U/L 10/01/2024 2:28 PM EDT [facility] Total Bilirubin, Plasma 0.9 0.2 - 1.1 mg/dL 10/01/2024 2:28 PM EDT [facility] eGFRcr 113.5 mL/min/1.7 3m*2 10/01/2024 2:28 PM EDT [facility] Comment:Reported eGFRcr in m L/min/1.73m2 is based the CKD-EPI 2020 equation that does not use a race coefficient. Blood Venous blood specimen / Unknown Venipuncture / Unknown 10/01/2024 12:28 PM EDT 10/01/2024 12:29 PM EDT us Iv[facility] LAB BLOOD ORDERABLES Final Result Performing Organization Address City/[facility]/ZIP Co de Phone Number [facility] [address] [place] [address] * ED HIV 1/2 Antibody/Antigen Screen w/Reflex to HIV 1/2 Differentiation (08/02/2023 6:45 PM EDT) HIV 1 & 2 Antibody/Antigen Screen Non Reactive Non Reactive 08/02/2023 8:15 PM EDT [facility] Comment:Screening for HIV 1 & 2 antibodies, and P24 antigen is NONREACTIVE. No confirmatory testing is required. Blood Venous blood specimen / Unknown Venipuncture / Unknown 08/02/2023 6:45 PM EDT 08/02/2023 7:05 PM EDT us Evelyn Dhillon MD LAB BLOOD ORDERABLES Final Resu lt [facility] [address] [place] [address] * Hepatitis C Antibody - ED (08/02/2023 6:45 PM EDT) Hepatitis C Antibody Negative Negative 08/02/2023 8:12 PM EDT [facility] Blood Venous blood specimen / Unknown Venipuncture / Unknown 08/02/2023 6:45 PM EDT 08/02/2023 7:05 PM EDT Evelyn Dhillon MD LAB BLOOD ORDERABLES Final Resu lt [facility] [address] [place] [address] from Last 3 Months or Most Recently Relevant to Health Maintenance Additional Health Concerns Infection Onset Date Last Indicated MRSA Comment:09/03/2018 MDRT MRSA Patient needs MRSA protocol. 09/03/2018 03/24/[address] [place] [address] [facility] Advance Directives * Full Code (Latest Code [...] Patient has decision-making capacity? Yes Care Teams Felt Checker Relationship Specialty Start Date End Date Garry Guerrier MD [address] [place] [address] [address] [place] [address] PCP - General Family Medicine 06/15/23 Odalys Velásquez APRN [address] [place] [address] Nurse Practitioner Internal Medicine 11/25/21 Susanne Richmond, RN [facility] Registered Nurse Cardiology 11/25/21 Jevon Cosme MD [address] [place] [address] Consulting Physician Cardiology 05/25/22 Jinny Sequeira MD [address] [place] [address] Resident PGY-3 General Surgery 07/27/23 Carolina Woodward MD [address] [place] [address] Consulting Physician Interventional Cardiology 12/12/23
--- OUTSIDE RECORDS SUMMARY | 2024-10-14 11:53 | XMS_ITS | Encounter Summary ---
Author Organization [facility] Address [address] [place] [address] Care Team Providers Care Diamond Mounter Name Role Phone Nuris Bustillo RN Unavailable Unavailable Odalys Velásquez DOFFER Unavailable [phone] Susanne Richmond RN Unavailable Unavailable Naveen Wynn MD Unavailable Cheyanne Whitmore DO Primary Care Provider [phone] Jevon Cosme MD Unavailable [phone] Garry Guerrier MD Primary Care Provider [phone] Jinny Sequeira MD Unavailable [phone] Carolina Woodward MD Unavailable [phone] Reason for Visit * Reason Onset Date Comments Med Refill 08/02/2022 Encounter Details Date Type Department Care Team (Late st Contact Info) Description 08/02/2022 [facility]ill [facility] Pediatric Cardiology [address], [address] [place] [address] Dandy Cerrato MD [address] [place] [address] Atrial tachycardia (CMS/HCC) (Primary Dx) [...] drink first t ab in the morning (EYE-TELECOM ASSISTANT) to steady your nerves or to get [...] [facility] [address] [place] [address] Augustine Yao MD [address] [place] [address] 04/21/2025 12:45 PM EST Appointment Cardiac Imaging [address] [place] [address] 04/21/2025 2:20 PM EST Office Visit [facility] [place] [address] [place] [address] Carolina Woodward MD [address] [place] [address] documented as of this encounter [...] documented as of this encounter Care Teams Diamond Mounter Relationship Specialty Start Date End Date Cheyanne Whitmore DO [address] [place] [address] PCP - General 03/30/22 06/14/23 Garry Guerrier MD [address] [place] [address] [address] [place] [address] PCP - General Family Medicine 06/15/23 Nuris Bustillo, RN [facility] Registered Nurse 11/25/21 03/24/24 Odalys Velásquez APRN [address] [place] [address] Nurse Practitioner Internal Medicine 11/25/21 Susanne Richmond RN [facility] Registered Nurse Cardiology 11/25/21 Naveen Wynn MD [address] [place] [address] Consulting Physician Pediatric Cardiology 01/05/22 Jevon Cosme MD [address] [place] [phone] Consulting Physician Cardiology 05/25/22 Jinny Sequeira MD [address] [place] [address] Resident PGY-3 General Surgery 07/27/23 Carolina Woodward MD [address] [place] [phone] Consulting Physician Interventional Cardiology 12/12/23 documented as of this encounter
--- OUTSIDE RECORDS SUMMARY | 2024-10-14 11:53 | XMS_ITS | Encounter Summary ---
Author Organization [facility] Address [address] [place] [address] Care Team Providers Care Contracts Analyst Name Role Phone Nuris Bustillo RN Unavailable Unavailable Odalys Velásquez OPERA SINGER Unavailable [phone] Susanne Richmond RN Unavailable Unavailable Naveen Wynn MD Unavailable Cheyanne Whitmore DO Primary Care Provider [phone] Jevon Cosme MD Unavailable [phone] Garry Guerrier MD Primary Care Provider [phone] Jinny Sequeira MD Unavailable [phone] Carolina Woodward MD Unavailable [phone] Reason for Visit * Reason Comments Med Refill Encounter Details Date Type Department Care Team (Late st Contact Info) Description 06/18/2022 [facility]ill [facility] [address], [address] [place] [address] Dandy Cerrato MD [address] [place] [address] Social History Tobacco Use Types [...] drink first t ab in the morning (EYE-WOOD CRAFTSMAN) to steady your nerves or to get [...] Description 01/07/2025 10:45 AM EST Office Visit [facility] General & Weight Loss Surgery [address] [place] [address] Augustine Yao MD [address] [place] [address] 04/21/2025 12:45 PM EST Appointment Cardiac Imaging [address] [place] [address] 04/21/2025 2:20 PM EST Office Visit [facility] [address] [place] [address] Carolina Woodward MD [address] [place] [address] documented as of this encounter [...] documented as of this encounter Care Teams Contracts Analyst Relationship Specialty Start Date End Date Cheyanne Whitmore DO [address] [place] [address] PCP - General 03/30/22 06/14/23 Garry Guerrier MD [address] [place] [address] PCP - General Family Medicine 06/15/23 Nuris Bustillo RN [facility] Registered Nurse 11/25/21 03/24/24 Odalys Velásquez APRN [address] [place] [address] Nurse Practitioner Internal Medicine 11/25/21 Susanne Richmond RN [facility] Registered Nurse Cardiology 11/25/21 Naveen Wynn MD [address] [place] [address] Consulting Physician Pediatric Cardiology 01/05/22 Jevon Cosme MD [address] [place] [address] Consulting Physician Cardiology 05/25/22 Jinny Sequeira MD [address] [place] [address] Resident PGY-3 General Surgery 07/27/23 Carolina Woodward MD [address] [place] [phone] Consulting Physician Interventional Cardiology 12/12/23 documented as of this encounter
--- OUTSIDE RECORDS SUMMARY | 2024-10-14 11:53 | XMS_ITS | Encounter Summary ---
Author Organization [facility] Address [address] [place] [address] Care Team Providers Care Aeronautical Test Engineer Name Role Phone Odalys Velásquez SHEAR ASSEMBLER Unavailable [phone] Susanne Richmond RN Unavailable Unavailable Jevon Cosme MD Unavailable [phone] Garry Guerrier MD Primary Care Provider [phone] Jinny Sequeira MD Unavailable [phone] Carolina Woodward MD Unavailable [phone] Encounter Details Date Type Department Care Team (Late st Contact Info) Description 10/03/2024 Outside Procedure [facility] Pediatric Cardiology [address], [address] [place] [address] Allison Crouch, RN [facility] Social History Tobacco Use Types Packs/Day Years [...] any time in the past 12 m [facility], were you homeless or living in a penitentiary (including now)? No 03/25/2024 AUDIT-C Answer Date [...] drink first t ab in the morning (EYE-TEST RACK OPERATOR) to steady your nerves or to get rid of a hangover? 0 03/24/2024 CAGE Questionnaire Score 0 025 Utilities Answer Date Recorded In the past 12 months has th e [employer], gas, oil, or water company threatened to [...] Description 01/07/2025 10:45 AM EST Office Visit [facility] General & Weight Loss Surgery [address] [place] [address] Augustine Yao MD [address] [address] 04/21/2025 12:45 PM EST Appointment Cardiac Imaging [address] [place] [address] 04/21/2025 2:20 PM EST Office Visit [facility] [place] [facility] [address] [place] [address] Carolina Woodward MD [address] [place] [address] documented as of this encounter Visit Diagnoses [...] documented as of this encounter Care Teams Aeronautical Test Engineer Relationship Specialty Start Date End Date Garry Guerrier MD [address] [place] [address] PCP - General Family Medicine 06/15/23 Odalys Velásquez APRN [address] [place] [address] Nurse Practitioner Internal Medicine 11/25/21 Susanne Richmond RN [facility] Registered Nurse Cardiology 11/25/21 Jevon Cosme MD [address] [place] [phone] Consulting Physician Cardiology 05/25/22 Jinny Sequeira MD [address] [place] [phone] Resident PGY-3 General Surgery 07/27/23 Carolina Woodward MD [address] [place] [address] Consulting Physician Interventional Cardiology 12/12/23 documented as of this encounter
== END 2024-10-12 23:59 | disposition home or self-care (01) ==
LOC: LAB.DROPOF 10-14 11:50
PROVIDERS: PCP Nurse Practitioner Family; Visit Provider Nurse Practitioner Family
DX: J06.9 Acute upper respiratory infection, unspecified (principal); J02.9 Acute pharyngitis, unspecified
CPT/HCPCS: 87631

== ENCOUNTER 2024-11-01 08:58 | Outpatient (CLI) | payer OTHER, SELFPAY ==
--- OUTSIDE RECORDS SUMMARY | 2024-10-01 11:15 | XMS_ITS | Encounter Summary ---
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 12:28 PM EDT) VITAMIN B1, WHOLE BLOOD 162 70 - 180 nmol/L 10/04/2024 9:37 AM EDT [facility] ([place]) Blood Venous blood specimen / Unknown Venipuncture / Unknown 10/01/2024 12:28 PM EDT 10/01/2024 12:29 PM EDT Narrative [facility]) - 10/04/2024 9:37 AM EDT INTERPRETIVE INFORMATION: Vitamin B1, Whole Blood This assay measures the concentration of thiamine diphosphate (TDP), the primary active form of vitamin B1. Approximately 90 percent of vitamin B1 present in whole blood is TDP. Thiamine and thiamine monophosphate, which comprise the remaining 10 percent, are not measured. This test was developed and its performance characteristics determined by [facility] ([employer] It has not been cleared or approved by the [place] Food and Drug Administration. This test was performed in a CLIA certified laboratory and is intended for clinical purposes. Performed By: [facility] ([employer]) [address] [place] [address] [employer]or: Frederick Garcia MD, PhD CLIA Number: [id number] Ivory Renae OR LAB BLOOD ORDERABLES Final Result [facility] ([place]) [address] [place] [address] * PTH Intact Total (10/01/2024 12:28 PM EDT) PTH Intact Total 68 9 - 77 pg/mL 10/01/2024 3:33 PM EDT [facility] Blood Venous blood specimen / Unknown Venipuncture / Unknown 10/01/2024 12:28 PM EDT 10/01/2024 12:29 PM EDT Narrative [facility] - 10/01/2024 3:33 PM EDT Assay performed by immunoassay at the [facility]. Performed on [employer] chemiluminescent immunoassay, tractable to the World Health Organization's first international standard for PTH from the [facility], Code 79/500. Results obtained from different test methods or kits cannot be used interchangeably. [facility] Final Result [facility] [address] [place] [address] * Vitamin D 25 Hydroxy (10/01/2024 12:28 PM EDT) Vitamin D 25 Hydroxy 34.1 20.0 - 80.0 ng/mL 10/01/2024 2:45 PM EDT [facility] Blood Venous blood specimen / Unknown Venipuncture / Unknown 10/01/2024 12:28 PM EDT 10/01/2024 12:29 PM EDT Narrative [facility] - 10/01/2024 2:45 PM EDT Testing performed on [employer], standardized against NIST SRM 2972. When testing samples from patients whose predominant form of vitamin D is vitamin D2, such as patients receiving vitamin D2 supplementation, results that are subtherapeutic should be confirmed with another method, such as LC-MS/MS, before being used for patient management. Vitamin D, 25-Hydroxy reference range, age 18 years and up: Deficiency: <12 ng/mL Insufficiency: 12 to 19 ng/mL Sufficiency: 20 to 80 ng/mL Possible toxicity: >100 ng/mL Ivory MONTERO LAB BLOOD ORDERABLES Final Result [facility] [address] [place] [address] * Iron & Total Iron Binding Capacity, Plasma (Includes Transferrin) (10/01/2024 12:28 PM EDT) Iron, Plasma 121 30 - 160 ug/dL 10/01/2024 2:28 PM EDT [facility] Transferrin, Plasma 243 200 - 360 mg/dL 10/01/2024 2:28 PM EDT [facility] Total Iron Binding Capacity, Plasma 304 240 - 450 ug/mL 10/01/2024 2:28 PM EDT [facility] Transferrin Saturation 40 14 - 50 % 10/01/2024 2:28 PM EDT [facility] Blood Venous blood specimen / Unknown Venipuncture / Unknown 10/01/2024 12:28 PM EDT 10/01/2024 12:29 PM EDT Iv[facility] MONTERO LAB BLOOD ORDERABLES Final Result Performing Organization Address [facility]/ZIP Co de Phone Number [facility] [address] [place] [address] * (ABNORMAL) Magnesium, Plasma (10/01/2024 12:28 PM EDT) Magnesium, Plasma 1.8(L) 1.9 - 2.4 mg/dL 10/01/2024 2:28 PM EDT [facility] Blood Venous blood specimen / Unknown Venipuncture / Unknown 10/01/2024 12:28 PM EDT 10/01/2024 12:29 PM EDT Ivory MONTERO LAB BLOOD ORDERABLES Final Result Performing Organization Address City/[facility]/ZIP Co de Phone Number [facility] [address] [place] [address] * Phosphorus, Plasma (10/01/2024 12:28 PM EDT) Phosphorus, Plasma 3.8 2.5 - 4.5 mg/dL 10/01/2024 2:28 PM EDT [facility] Blood Venous blood specimen / Unknown Venipuncture / Unknown 10/01/2024 12:28 PM EDT 10/01/2024 12:29 PM EDT Ivory MONTERO LAB BLOOD ORDERABLES Final Result [facility] [address] [place] [address] * Vitamin A (Retinol), Serum or Plasma (10/01/2024 12:28 PM EDT) Vitamin A (Retinyl Palmitate) <0.02 0.00 - 0.10 mg/L 10/04/2024 3:16 PM EDT [facility] ([employer]) VITAMIN A,SER/BETH-INTE RPRETATION Normal 10/04/2024 3:16 PM EDT [facility] ([employer]) Vitamin A (Retinol) 0.51 0.30 - 1.20 mg/L 10/04/2024 3:16 PM EDT [facility] ([employer]) Fasting greater than or equal to 12 hours? 10/04/2024 3:16 PM EDT [facility] ([employer]) Blood Venous blood specimen / Unknown Venipuncture / Unknown 10/01/2024 12:28 PM EDT 10/01/2024 12:29 PM EDT Narrative [facility] ([employer]) - 10/04/2024 3:16 PM EDT This test was developed and its performance characteristics determined by [facility] ([employer] It has not been cleared or approved by the [place] Food and Drug Administration. This test was performed in a CLIA certified laboratory and is intended for clinical purposes. Performed By: [facility] ([employer]) [address] [place] [address] [employer]: Frederick Garcia MD, PhD CLIA Number: [id number] Ivory MONTERO LAB BLOOD ORDERABLES Final Result Performing Organization Address [facility] de Phone Number [facility] [address] [place] [address] * (ABNORMAL) Vitamin E, Serum or Plasma (10/01/2024 12:28 PM EDT) Vitamin E (Alpha-Tocophe rol) 4.4(L) 5.5 - 18.0 mg/L 10/04/2024 3:16 PM EDT [facility] ([facility]) Vitamin E (Gamma-Tocophe rol) 1.7 0.0 - 6.0 mg/L 10/04/2024 3:16 PM EDT [facility] ([facility]) Fasting greater than or equal to 12 hours? 10/04/2024 3:16 PM EDT [facility] ([facility]) Blood Venous blood specimen / Unknown Venipuncture / Unknown 10/01/2024 12:28 PM EDT 10/01/2024 12:29 PM EDT Narrative [facility] ([facility]) - 10/04/2024 3:16 PM EDT This test was developed and its performance characteristics determined by [facility] ([employer]). It has not been cleared or approved by the US Food and Drug Administration. This test was performed in a CLIA certified laboratory and is intended for clinical purposes. Performed By: [facility] ([employer]) [address] [place] [id number] [employer]or: Frederick Garcia MD, PhD CLIA Number: [id number] Ivory MONTERO LAB BLOOD ORDERABLES Final Result Performing Organization Address [facility] Co de Phone Number [facility] ([place]) [address] [place] [address] documented in this encounter Visit Diagnoses Diagnosis S/P gastric sleeve procedure- Primary BMI 45.0-49.9, adult (CMS/HCC) PHYLICIA (obstructive sleep apnea) Obstructive sleep apnea (adult) (pediatric) Multiple joint pain Pain in joint, multiple sites Situs inversus Anxiety and depression Other heart failure Palpitations documented in this encounter Additional Health Concerns Infection Onset Date Last Indicated Resolved Time MRSA Comment:09/03/2018 MDRT MRSA Patient needs MRSA protocol. 09/03/2018 03/24/2024 Assessment Noted Time PHQ-9 Depression Total Score: 0 10/02/19 25 11:06 AM EDT A fall risk assessment has been complete d for the patient 10/01/2024 11:06 AM EDT A Body Mass Index follow-up plan has been documented for the patient 10/04/2024 4:43 PM EDT documented as of this encounter Care Teams [employer] Relationship Specialty Start Date End Date Garry Guerrier MD [address] [place] [id number] PCP - General Family Medicine 06/15/23 Odalsy Velásquez APRN [address] [place] [phone] Nurse Practitioner Internal Medicine 11/25/21 Susanne Richmond, RN [facility] Registered Nurse Cardiology 11/25/21 Jevon Cosme MD [address] [place] [phone] Consulting Physician Cardiology 05/25/22 Jinny Sequeira MD [address] [place] [id number] Resident PGY-3 General Surgery 07/27/23 Carolina Woodward MD [address] [place] [phone] Consulting Physician Interventional Cardiology 12/12/23 documented as of this encounter
--- OUTSIDE RECORDS SUMMARY | 2024-10-29 07:49 | XMS_ITS | Encounter Summary ---
Author Organization [facility] Address [address] [place] [address] Care Team Providers Care Car Seat Maker Name Role Phone Odalys Velásquez Romie TRAFFIC WORKFORCE REPRESENTATIVE Unavailable [phone] Susanne Richmond RN Unavailable Unavailable Jevon Cosme MD Unavailable [phone] Garry Guerrier MD Primary Care Provider [phone] Jinny Sequeira MD Unavailable [phone] Carolina Woodward MD Unavailable [phone] Encounter Details Date Type Department Care Team (Latest Contact Info) Description 10/29/2024 7:49 AM EDT - 10/29/2024 11:59 PM EDT Hospital Encounter [facility] Pediatric Cardiac Diagnostic Testing [address], [place] [address] Supraventricular tachycardia Discharge Disposition: Home or Self Care Social [...] Answer Date Recorded Patient Health Questionnaire-2 Score 1 10/29/2024 Hunger Vital Sign Answer Date Recorded Within [...] Answer Date Recorded Patient Health Questionnaire-9 Score 5 10/29/2024 Housing Stability Vital Sign Answer Zana e Recorded In the last 12 months, was t here a time when you were not able to pay the mortgage or rent on time? No 03/25/2024 Number of Times Moved in the Last Year Not on fi le 03/25/2024 At any time in the past 12 m [facility], were you homeless or living in a [facility] (including now)? No 03/25/2024 AUDIT-C Answer Date [...] drink first t ab in the morning (EYE-BURN OUT SCARFING OPERATOR) to steady your nerves or to get rid of a hangover? 0 03/24/2024 CAGE Questionnaire Score 0 025 Utilities Answer Date Recorded In the past 12 months has th e [employer], gas, oil, or water [facility] threatened to shut off services in your [...] of Assessment Author Patient Health Questionnaire-2 Score 1 03/2024 8:08 AM EDT Hilda [email or web address] * Little interest or pleasure in doing things Answer Date of Assessment Author Several days 10/29/2024 8:08 AM EDT Ruth Wray [email or web address] * Feeling down, depressed, or hopeless Answer Date of Assessment Author Not at all 10/29/2024 8:08 AM EDT Ruth Wray [email or web address] * Question Answer Date of Assessment Author Patient Health Questionnaire-9 Score 5 03/2024 8:08 AM EDT Ruth [email or web address] * Trouble falling or staying asleep, or sleeping too much Answer Date of Assessment Author Several days 10/29/2024 8:08 AM EDT Ruth Wray [email or web address] * Feeling tired or having little energy Answer Date of Assessment Author Several days 10/29/2024 8:08 AM EDT Ruth Wray [email or web address] * Poor appetite or overeating Answer Date of Assessment Author Not at all 10/29/2024 8:08 AM Ruth Mark [email or web address] * Feeling bad about yourself - or that you are a failure or have let yourself or your family down Answer Date of Assessment Author Several days 10/29/2024 8:08 AM Ruth [email or web address] * Trouble concentrating on things, such as reading the newspaper or watching television Answer Date of Assessment Author Several days 10/29/2024 8:08 AM Ruth [email or web address] * Moving or speaking so slowly that other people could have noticed? Or the opposite - being so fidgety or restless that you have been moving around a lot more than usual. Answer Date of Assessment Author Not at all 10/29/2024 8:08 AM Ruth [email or web address] * Thoughts that you would be better off or hurting yourself in some way Answer Date of Assessment Author Not at all 10/29/2024 8:08 AM Ruth [email or web address] documented as of this encounter Medications at Time of Discharge acyclovir (Zovirax) 5 % ointment APPLY A SMALL AMOUNT OF OINTMENT EXTERNALLY TO AFFECTED AREA EVERY 3 HOURS 04/09/2024 Azelastine HCl 137 MCG/SPRAY solution Administer 2 sprays into each nostril. 08/09/2024 busPIRone (Buspar) 15 MG tablet Take 1 tablet (15 mg) by mouth 2 (two) times a day. 02/09/2024 cetirizine (ZyrTEC) 5 MG tablet Take 1 tablet by mouth daily. cyclobenzaprine (Flexeril) 10 MG tablet Take 1 tablet (10 mg) by mouth every 8 hours as needed for muscle spasms. 07/06/2023 cyclobenzaprine (Flexeril) 10 MG tablet Take 1 tablet (10 mg) by mouth 3 (three) times a day. 30 tablet 04/04/2024 fluticasone (Flonase) 50 MCG/ACT nasal spray use 1 spray(s) in each nostril once daily 08/11/2024 medroxyPROGESTERo ne (Depo-Provera) 150 MG/ML injection Inject 1 mL (150 mg) into the muscle every 3 (three) months. meloxicam (Mobic) 15 MG tablet Take 1 tablet (15 mg) by mouth daily. 10/20/2023 metoprolol succinate XL (Toprol-XL) 50 MG 24 hr tabletIndications :Supraventricular tachycardia Take 1 tablet by mouth every evening. Do not crush or chew. 30 tablet 10/29/2024 5 Ozempic, 1 MG/DOSE, 4 MG/3ML solution pen-injector 1 mg. 09/25/2024 Rexulti 3 MG tablet Take 1 tablet (3 mg) by mouth daily. 02/09/2024 simethicone (Mylicon) 80 MG chewable tablet Chew 1 tablet (80 mg) every 6 (six) hours if needed for flatulence. 30 tablet 03/26/2024 sotalol (Betapace) 160 MG tabletIndications :Atrial tachycardia (CMS/HCC) Take 1 tablet by mouth every 12 hours. 180 tablet 3 06/28/2024 6 documented as of this encounter Plan of Treatment Upcoming Encounters Date Type Department Care Team (Late st Contact Info) Description 01/07/2025 10:45 AM EST Office Visit [facility] [address] [place] [address] Augustine Yao MD [address] [address] 04/21/2025 12:45 PM EST Appointment Cardiac Imaging [address] [place] [address] 04/21/2025 2:20 PM EST Office Visit [facility] [place] [facility] [address] [place] [address] Carolina [place] MD [address] [place] [address] documented as of this encounter Procedures Procedure Name Priority Date/Time Associated Diagnosis Comments ECG PEDIATRIC Routine 10/29/2024 8:27 AM EDT Supraventricular tachycardia documented in this encounter Results * ECG Pediatric (Future Visit - Performed in your clinic) (10/29/2024 8:27 AM EDT) EKG DIAGNOSIS CLASS Abnormal MUSE ECG Ventricular Rate 83 BPM MUSE ECG Atrial Rate 83 BPM MUSE ECG IN Interval 156 ms MUSE ECG QRSD Interval 120 ms MUSE ECG QT Interval 434 ms MUSE ECG QTC Interval 506 ms MUSE ECG P [place] 116 degrees MUSE ECG R [place] 49 degrees MUSE ECG T Wave [place] 152 degrees MUSE ECG Diagnosis Normal sinus rhythm MUSE ECG Diagnosis Nonspecific intraventricular conduction delay MUSE ECG Diagnosis ST & T wave abnormality, consider anterolateral ischemia MUSE ECG Diagnosis Prolonged QT MUSE ECG Diagnosis When compared with ECG of 27-Jun-2024 10:32, MUSE ECG Diagnosis No significant change was found MUSE ECG Diagnosis Confirmed by Dandy Cerrato ([id number]) on 10/29/2024 10:05:57 AM MUSE ECG 10/29/2024 8:27 AM EDT 10/29/2024 10:05 AM EDT Dandy Cerrato MD ECG ORDERABLES Final Result MUSE ECG documented in this encounter Visit Diagnoses Diagnosis Supraventricular tachycardia Other specified cardiac dysrhythmias documented in this encounter Additional Health Concerns Infection Onset Date Last Indicated Resolved Time MRSA Comment:09/03/2018 MDRT MRSA Patient needs MRSA protocol. 09/03/2018 03/24/2024 Assessment Noted Time PHQ-9 Depression Total Score: 5 10/30/19 25 8:08 AM EDT A fall risk assessment has been complete d for the patient 10/29/2024 8:12 AM EDT A Body Mass Index follow-up plan has been documented for the patient 10/04/2024 4:43 PM EDT documented as of this encounter Care Teams Car Seat Maker Relationship Specialty Start Date End Date Garry Guerrier MD [address] [place] [address] PCP - General Family Medicine 06/15/23 Odalys Velásquez APRN [address] [place] [address] Nurse Practitioner Internal Medicine 11/25/21 Susanne Richmond, RN [facility] Registered Nurse Cardiology 11/25/21 Jevon Cosme MD [address] [place] [address] Consulting Physician Cardiology 05/25/22 Jinny Sequeira MD [address] [place] [address] Resident PGY-3 General Surgery 07/27/23 Carolina Woodward MD [address] [place] [address] Consulting Physician Interventional Cardiology 12/12/23 documented as of this encounter
--- OUTSIDE RECORDS SUMMARY | 2024-10-29 08:30 | XMS_ITS | Encounter Summary ---
Author Organization [facility] Address [address] [place] [address] Care Team Providers Care Subcontracts Manager Name Role Phone Odalys Velásquez COLD WATER MACHINE OPERATOR Unavailable [phone] Susanne Richmond RN Unavailable Unavailable Jevon Comse MD Unavailable [phone] Garry Guerrier MD Primary Care Provider [phone] Jinny Sequeira MD Unavailable [phone] Carolina Woodward MD Unavailable [phone] Reason for Visit * Reason Comments SVT Congenital Heart Defect Encounter Details Date Type Department Care Team (Latest Contact Info) Description 10/29/2024 8:30 AM EDT Office Visit [facility] [address], [address] [place] [address] Dandy Cerrato MD [address] [place] [address] Supraventricular tachycardia (Primary Dx); 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 No 03/25/2024 AUDIT-C Answer Date [...] drink first t ab in the morning (EYE-GAS BLENDER) to steady your nerves or to get rid of a hangover? 0 03/24/2024 CAGE Questionnaire Score 0 025 Utilities Answer Date Recorded In the past 12 months has th e [employer], gas, oil, or water company threatened to [...] Sign Reading Time Taken Comments Blood Pressure 121/83 10/29/2024 8:18 AM EDT Pulse 83 10/29/2024 8:18 AM EDT Temperature - - Respiratory Rate 15 10/29/2024 8:18 AM EDT Oxygen Saturation 96% 10/29/2024 8:18 AM EDT Inhaled Oxygen Concentration - - Weight 161 kg (354 lb 15.1 oz) 10/29/2024 8:18 AM EDT Height 172.4 cm (5' 7.87 ) 10/29/2024 8:18 AM ED T Body Mass Index 54.17 10/29/2024 8:18 AM EDT documented in this encounter Functional Status * Over the past 2 weeks, how often have you been bothered by any of the following problems? Question Answer Date of Assessment Author Patient Health Questionnaire-2 Score 1 03/2024 8:08 AM EDT Rose Wray * Little interest or pleasure in doing things Answer Date of Assessment Author Several days 10/29/2024 8:08 AM EDT Nils Em [email or web address] * Feeling down, depressed, or hopeless Answer Date of Assessment Author Not at all 10/29/2024 8:08 AM EDT Nils Em [email or web address] * Question Answer Date of Assessment Author Patient Health Questionnaire-9 Score 5 03/2024 8:08 AM EDT Nils [email or web address] * Trouble falling or staying asleep, or sleeping too much Answer Date of Assessment Author Several days 10/29/2024 8:08 AM EDT Nils Em [email or web address] * Feeling tired or having little energy Answer Date of Assessment Author Several days 10/29/2024 8:08 AM EDT Nils Em [email or web address] * Poor appetite or overeating Answer Date of Assessment Author Not at all 10/29/2024 8:08 AM EDT Nils Em [email or web address] * Feeling bad about yourself - or that you are a failure or have let yourself or your family down Answer Date of Assessment Author Several days 10/29/2024 8:08 AM EDT Nils Em [email or web address] * Trouble concentrating on things, such as reading the newspaper or watching television Answer Date of Assessment Author Several days 10/29/2024 8:08 AM EDT Nils Em [email or web address] * Moving or speaking so slowly that other people could have noticed? Or the opposite - being so fidgety or restless that you have been moving around a lot more than usual. Answer Date of Assessment Author Not at all 10/29/2024 8:08 AM EDT Ruth Wray [email or web address] * Thoughts that you would be better off or hurting yourself in some way Answer Date of Assessment Author Not at all 10/29/2024 8:08 AM EDT Nils Em [email or web address] documented as of this encounter Plan of Treatment Upcoming Encounters Date Type Department Care Team (Late st Contact Info) Description 01/07/2025 10:45 AM EST Office Visit [facility] General & Weight Loss Surgery [address] [place] [address] Augustine Yao MD [address] [place] [address] 04/21/2025 12:45 PM EST Appointment Cardiac Imaging [address] [place] [address] 04/21/2025 2:20 PM EST Office Visit [facility] [address] [place] [address] Carolina Woodward MD [address] [place] [address] documented as of this encounter Results * ECG Pediatric (Future Visit - Performed in your clinic) (10/29/2024 8:27 AM EDT) EKG DIAGNOSIS CLASS Abnormal MUSE ECG Ventricular Rate 83 BPM MUSE ECG Atrial Rate 83 BPM MUSE ECG ND Interval 156 ms MUSE ECG QRSD Interval 120 ms MUSE ECG QT Interval 434 ms MUSE ECG QTC Interval 506 ms MUSE ECG P [place] 116 degrees MUSE ECG R [place] 49 degrees MUSE ECG T Wave [place] 152 degrees MUSE ECG Diagnosis Normal sinus [...] 8:27 AM EDT 10/29/2024 10:05 AM EDT us Dandy Cerrato MD ECG ORDERABLES Final Result MUSE ECG documented in this encounter Visit Diagnoses Diagnosis Supraventricular tachycardia- Primary Other specified cardiac dysrhythmias 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 transposition of great vessels documented in this [...] documented as of this encounter Care Teams Subcontracts Manager Relationship Specialty Start Date End Date Garry Guerrier MD [address] [place] [address] PCP - General Family Medicine 06/15/23 Odalys Velásquez APRN [address] [place] [phone] Nurse Practitioner Internal Medicine 11/25/21 Susanne Richmond RN [facility] Registered Nurse Cardiology 11/25/21 Jevon Cosme MD [address] [place] [phone] Consulting Physician Cardiology 05/25/22 Jinny Sequeira MD [address] [place] [address] Resident PGY-3 General Surgery 07/27/23 Carolina Woodward MD [address] [place] [phone] Consulting Physician Interventional Cardiology 12/12/23 documented as of this encounter
--- OUTSIDE RECORDS SUMMARY | 2024-11-01 09:04 | XMS_ITS | Clinical Summary ---
Author Organization [facility] Address [address] [place] [address] Care Team Providers Care Knitting Machine Fixer Head Name Role Phone Valerie Reyes APRN Primary Care Provider [phone] Allergies Active Allergy Reactions Criticality Noted Date [...] patient's age to complete this topic Insurance [facility] PPO Care Teams Knitting Machine Fixer Head Relationship Specialty Start Date End Date Valerie Reyes APRN [address] [place] [address] PCP - General Nurse Practitioner 01/09/24
--- OUTSIDE RECORDS SUMMARY | 2024-11-01 09:05 | XMS_ITS | Clinical Summary ---
Author Organization [facility] Address [facility] [place] [address] Care Team Providers Care Customs Opener Verifier Packer Name Role Phone Stephen Stoddard M.D. Primary Care Provider [phone] Source Comments [facility] is fully rolled out with thefollowing exceptions:[facility] Allergies Active Allergy Reactions Criticality Noted Date [...] of 3 - 19+ 3-dose series) 2017 AMB SEASONAL FLU VACCINE (#1) 10/28/2024 COVID-19 Vaccine ( - 2023-2 5 season) 2024 HIB IMMUNIZATION Aged Out No longer e [...] this topic Insurance on file Care Teams Customs Opener Verifier Packer Relationship Specialty Start Date End Date Stephen Stoddard M.D. [address], [facility] [place] [address] PCP - General 06/30/16
--- OUTSIDE RECORDS SUMMARY | 2024-11-01 09:05 | XMS_ITS | Encounter Summary ---
Author Organization Healthcare Address [address] [place] [address] Care Team Providers Care Wrapper Cashier Name Role Phone Odalys Velásquez Romie CAMPGROUND CARETAKER Unavailable [phone] Susanne Richmond RN Unavailable Unavailable Jevon Cosme MD Unavailable [phone] Garry Guerrier MD Primary Care Provider [phone] Jinny Sequeira MD Unavailable [phone] Carolina Woodward MD Unavailable [phone] Encounter Details Date Type Department Care [...] any time in the past 12 m [facility], were you homeless or living in a custodial (including now)? No 03/25/2024 AUDIT-C Answer Date [...] drink first t ab in the morning (EYE-CONTACT CENTER MANAGER) to steady your nerves or to [...] Description 01/07/2025 10:45 AM EST Office Visit [facility] General & Weight Loss Surgery [address] [place] [address] Augustine Yao MD [address] [place] [phone] 04/21/2025 12:45 PM EST Appointment Cardiac Imaging [address] [place] [address] 04/21/2025 2:20 PM EST Office Visit [facility] [place] [address] [place] [address] Carolina Woodward MD [address] [place] [address] documented as of this encounter [...] documented as of this encounter Care Teams Wrapper Cashier Relationship Specialty Start Date End Date Garry Guerrier MD [address] [place] [address] 1 [place] [address] PCP - General Family Medicine 06/15/23 Odalys Velásquez APRN [address] [place] [address] Nurse Practitioner Internal Medicine 11/25/21 Susanne Richmond RN [facility] Registered Nurse Cardiology 11/25/21 Jevon Cosme MD [address] [place] [phone] Consulting Physician Cardiology 05/25/22 Jinny Sequeira MD [address] [place] [address] Resident PGY-3 General Surgery 07/27/23 Carolina Woodward MD [address] [place] [address] Consulting Physician Interventional Cardiology 12/12/23 documented as of this encounter
--- OUTSIDE RECORDS SUMMARY | 2024-11-01 09:05 | XMS_ITS | Encounter Summary ---
Author Organization [facility] Address [address] [place] [address] Care Team Providers Care Assistant Speech Language Pathologist Name Role Phone Odalys Velásquez [employer] Unavailable [phone] Susanne Richmond RN Unavailable Unavailable Jevon Cosme MD Unavailable [phone] Garry Guerrier MD Primary Care Provider [phone] Jinny Sequeira MD Unavailable [phone] Carolina Woodward MD Unavailable [phone] Encounter Details Date Type Department Care Team (Late st Contact Info) Description 10/03/2024 Outside Procedure [facility] Pediatric Cardiology [address], [address] [place] [phone] Allison Crouch, RN [facility] Social [...] any time in the past 12 m [facility], were you homeless or living in a care home (including now)? No 03/25/2024 AUDIT-C Answer Date [...] drink first t ab in the morning (EYE-AGRICULTURAL PRODUCE SORTER) to steady your nerves or to get rid of a hangover? 0 03/24/2024 CAGE Questionnaire Score 0 025 Utilities Answer Date Recorded In the past 12 months has th e [employer], gas, oil, or water company threatened to [...] 01/07/2025 10:45 AM EST Office Visit [facility] General & Weight Loss Surgery [address] [place] [address] Augustine Yao MD [address] [address] 04/21/2025 12:45 PM EST Appointment Cardiac Imaging [address] [place] [phone] 04/21/2025 2:20 PM EST Office Visit [facility] [place] [facility] [address] [place] [address] Carolina Woodward MD [address] [place] [phone] documented as of this encounter Visit Diagnoses [...] as of this encounter Care Teams Assistant Speech Language Pathologist Relationship Specialty Start Date End Date Garry Guerrier MD [address] [place] [address] PCP - General Family Medicine 06/15/23 Odalys Velásquez APRN [address] [place] [phone] Nurse Practitioner Internal Medicine 11/25/21 Susanne Richmond RN [facility] Registered Nurse Cardiology 11/25/21 Jevon Cosme MD [address] [place] [phone] Consulting Physician Cardiology 05/25/22 Jinny Sequeira MD [address] [place] [address] [id number] Resident PGY-3 General Surgery 07/27/23 Carolina Woodward MD [address] [place] [phone] Consulting Physician Interventional Cardiology 12/12/23 documented as of this encounter
--- OUTSIDE RECORDS SUMMARY | 2024-11-01 09:05 | XMS_ITS | Encounter Summary ---
Author Organization [facility] Address [address] [place] [address] Care Team Providers Care Principle Industrial Hygienist Name Role Phone Nuris Bustillo RN Unavailable Unavailable Odalys Velásquez INFORMATION AND REFERRAL DIRECTOR Unavailable [phone] Susanne Richmond RN Unavailable Unavailable Naveen Wynn MD Unavailable Cheyanne Whitmore DO Primary Care Provider [phone] Jevon Cosme MD Unavailable [phone] Garry Guerrier MD Primary Care Provider [phone] Jinny Sequeira MD Unavailable [phone] Carolina Woodward MD Unavailable [phone] Reason for Visit * Reason Onset Date Comments Med Refill 08/02/2022 Encounter Details Date Type Department Care Team (Late st Contact Info) Description 08/02/2022 Refill [facility] Clinic Pediatric Cardiology [address], [address] [place] [address] Dandy Cerrato MD [address] [place] [address] Atrial tachycardia (CMS/HCC) (Primary Dx) [...] drink first t ab in the morning (EYE-CASHIER OR CHECKER STOCK CLERK) to steady your nerves or to get [...] & Weight Loss Surgery [address] [place] [address] Augustine Yao MD [address] [place] [address] 04/21/2025 12:45 PM EST Appointment Cardiac Imaging [address] [place] [address] 04/21/2025 2:20 PM EST Office Visit [facility] [place] [address] [place] [address] Carolina Woodward MD [address] [place] [address] documented as of this encounter [...] documented as of this encounter Care Teams Principle Industrial Hygienist Relationship Specialty Start Date End Date Cheyanne Whitmore DO [address] [place] [address] PCP - General 03/30/22 06/14/23 Garry Guerrier MD [address] [place] [address] [address] [place] [address] PCP - General Family Medicine 06/15/23 Nuris Bustillo, RN [facility] Registered Nurse 11/25/21 03/24/24 Odalys Velásquez APRN [address] [place] [phone] Nurse Practitioner Internal Medicine 11/25/21 Susanne Richmond RN [facility] Registered Nurse Cardiology 11/25/21 Naveen Wynn MD [address] [place] [phone] Consulting Physician Pediatric Cardiology 01/05/22 Jevon Cosme MD [address] [place] [phone] Consulting Physician Cardiology 05/25/22 Jinny Sequeira MD [address] [place] [address] Resident PGY-3 General Surgery 07/27/23 Carolina Woodward MD [address] [place] [phone] Consulting Physician Interventional Cardiology 12/12/23 documented as of this encounter
--- OUTSIDE RECORDS SUMMARY | 2024-11-01 09:05 | XMS_ITS | Encounter Summary ---
Author Organization [facility] Address [address] [place] [address] Care Team Providers Care Ground Wirer Name Role Phone Nuris Bustillo RN Unavailable Unavailable Odalys Velásquez TOOL LIAISON Unavailable [phone] Susanne Richmond RN Unavailable Unavailable Naveen Wynn MD Unavailable Cheyanne Whitmore DO Primary Care Provider [phone] Jevon Cosme MD Unavailable [phone] Garry Guerrier MD Primary Care Provider [phone] Jinny Sequeira MD Unavailable [phone] Carolina Woodward MD Unavailable [phone] Reason for Visit * Reason Comments Med Refill Encounter Details Date Type Department Care Team (Late st Contact Info) Description 06/18/2022 [facility]ill [facility] Pediatric Cardiology [address] [place] [address] Dandy Cerrato MD [address] [place] [address] Social History Tobacco Use Types [...] drink first t ab in the morning (EYE-FUSION ANALYST) to steady your nerves or to [...] Description 01/07/2025 10:45 AM EST Office Visit [facility] General & Weight Loss Surgery [address] [place] [address] Augustine Yao MD [address] [place] [phone] 04/21/2025 12:45 PM EST Appointment Cardiac Imaging [address] [place] [address] 04/21/2025 2:20 PM EST Office Visit [facility] [place] [facility] [address] [place] [address] Carolina Wodoward MD [address] [place] [address] documented as of this encounter [...] documented as of this encounter Care Teams Ground Wirer Relationship Specialty Start Date End Date Cheyanne Whitmore DO [address] [place] [address] PCP - General 03/30/22 06/14/23 Garry Guerrier MD [address] [place] [address] PCP - General Family Medicine 06/15/23 Nuris Bustillo RN [facility] Registered Nurse 11/25/21 03/24/24 Odalys Velásquez APRN [address] [place] [address] Nurse Practitioner Internal Medicine 11/25/21 Susanne Richmond RN [facility] Registered Nurse Cardiology 11/25/21 Naveen Wynn MD [address] [place] [address] Consulting Physician Pediatric Cardiology 01/05/22 Jevon Cosme MD [address] [place] [address] Consulting Physician Cardiology 05/25/22 Jinny Sequeira MD [address] [place] [address] Resident PGY-3 General Surgery 07/27/23 Carolina Woodward MD [address] [place] [phone] Consulting Physician Interventional Cardiology 12/12/23 documented as of this encounter
--- OUTSIDE RECORDS SUMMARY | 2024-11-01 09:05 | XMS_ITS | Clinical Summary ---
Author Organization [facility] Address [address] [place] [address] Care Team Providers Care Preschool Assistant Teacher Name Role Phone Odalys Velásquez Romie IMPREGNATOR HELPER Unavailable [phone] Susanne Richmond RN Unavailable Unavailable Jevon Cosme MD Unavailable [phone] Garry Guerrier MD Primary Care Provider [phone] Jinny Sequeira MD Unavailable [phone] Carolina Woodward MD Unavailable [phone] Allergies Active Allergy Reactions Criticality Noted [...] Active Additional Information Patient not taking.Reported on 10/29/2024 cyclobenzaprine (Flexeril) 10 MG tablet Take 1 tablet (10 mg) by mouth 3 (three) times a day. 30 tablet 5 Active dilTIAZem (Cardizem) 60 MG immediate release tablet Take 1 tablet (60 mg) by mouth as needed (as needed for tachy arrhythmias). 30 tablet 1 5 Active Additional Information Patient not taking.Reported on 10/29/2024 sotalol (Betapace) 160 MG tabletIndication s:Atrial tachycardia (CMS/HCC) Take 1 tablet by mouth every 12 hours. 180 tablet 3 5 06/29/19 26 Active Ozempic, 1 MG/DOSE, 4 MG/3ML solution pen-injector 1 mg. 5 Active fluticasone (Flonase) 50 MCG/ACT nasal spray use 1 spray(s) in each nostril once daily 5 Active Azelastine HCl 137 MCG/SPRAY solution Administer 2 sprays into each nostril. 5 Active acyclovir (Zovirax) 5 % ointment APPLY A SMALL AMOUNT OF OINTMENT EXTERNALLY TO AFFECTED AREA EVERY 3 HOURS 5 Active cetirizine (ZyrTEC) 5 MG tablet Take 1 tablet by mouth daily. Active metoprolol succinate XL (Toprol-XL) 50 MG 24 hr tabletIndication s:Supraventricul ar tachycardia Take 1 tablet by mouth every evening. Do not crush or chew. 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 Atrial tachycardia, paroxysmal 09/19/2018 03/24/2024 Metatarsal fracture 07/27/2018 07/27/19 Pilon fracture 07/27/2018 07/27/2023 Wrist pain 07/26/2018 07/27/2023 Hypertension 12/16/2016 03/24/2024 Overview (07/27/2023): Goal of Normotension PRN Hydralazine and Labetalol Resume home medications as appropriate Pulmonary subvalvular stenosis 08/29/2013 03/24/2024 Encounters Date Type Department Care Team Description 10/29/2024 8:30 AM EDT Office Visit [facility] Pediatric Cardiology [address] [place] [address] Dandy Cerrato MD Supraventricular tachycardia (Primary Dx); 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 General & Weight Loss Surgery [facility] [place] [address] Augustine Yao MD S/P gastric sleeve procedure [...] any time in the past 12 m [facility], were you homeless or living in a half-way (including now)? No 03/25/2024 AUDIT-C Answer Date [...] drink first t ab in the morning (EYE-QUALITY DIRECTOR) to steady your nerves or to get [...] Pulse 83 10/29/2024 8:18 AM EDT Temperature 36.4 C (97.6 F) 05/24/2024 2:57 AM EDT Respiratory Rate 15 10/29/2024 8:18 AM EDT Oxygen Saturation 96% 10/29/2024 8:18 AM EDT Inhaled Oxygen Concentration - - Weight 161 kg (354 lb 15.1 oz) 10/29/2024 8:18 A M EDT Height 172.4 cm (5' 7.87 ) 10/29/2024 8:18 AM ED T Body Mass Index 54.17 10/29/2024 8:18 AM EDT Plan of Treatment Upcoming Encounters Date Type Department Care Team (Late st Contact Info) Description 01/07/2025 10:45 AM EST Office Visit [facility] General & Weight Loss Surgery [address] [place] [address] Augustine Yao MD [address] [address] 04/21/2025 12:45 PM EST Appointment Cardiac Imaging [address] [place] [address] 04/21/2025 2:20 PM EST Office Visit [facility] [place] [address] [facility] [place] [address] Carolina Woodward MD [address] [place] [address] Health Maintenance Due Date Last Done Comments [facility]-Infant/Child/Adol SDOH Screenings 1998 [facility]-Varicella Vaccines (1 of 2 - 13+ 2-dose series) 10/09/2011 HPV Vaccines (1 - 3-dose series) 2013 [facility]-Hepatitis B Vaccines (1 of 3 - 19+ 3-dose series) 2017 [facility]-Pap Smear 10/09/2019 [facility]- SDOH Screenings 09/22/2024 [facility]-Adult SDOH Screenings 09/22/2024 03/25/2024 [id number] Vaccine (3 - season) 2024 06/10/2020, 05/13/2020 [facility]-Influenza Vaccine (#1) 2024 [facility]-Depression Screening 10/29/2025 10/29/2024, 03/2024 [facility]-DTaP,Tdap,and Td Vaccines (2 - Td or [...] this topic Medical Devices Implanted Type [employer] Device Identifier Shelf Expiration Date Model / Serial / Lot Plate Plate Right: Leg Screw Screw Right: Leg Procedures Procedure Name Priority Date/Time Associated Diagnosis Comments ECG PEDIATRIC Routine 10/29/2024 8:27 AM EDT Supraventricular tachycardia VITAMIN E, SERUM OR PLASMA (SO) Routine [...] ECG Atrial Rate 83 BPM MUSE ECG NV Interval 156 ms MUSE ECG QRSD Interval 120 ms MUSE ECG QT Interval 434 ms MUSE ECG QTC Interval 506 ms MUSE ECG P [place]ad[place]ide 116 degrees MUSE ECG R [place] 49 degrees MUSE ECG T Wave [place] 152 degrees MUSE ECG Diagnosis Normal sinus [...] ECG ORDERABLES Final Result MUSE ECG * Iron & Total Iron Binding Capacity, Plasma (Includes Transferrin) (10/01/2024 12:28 PM EDT) Iron, Plasma 121 30 - 160 ug/dL 10/01/2024 2:[address] [facility] Transferrin, Plasma 243 200 - 360 mg/dL 10/01/2024 2:[address] [facility] Total Iron Binding Capacity, Plasma 304 240 - 450 ug/mL 10/01/2024 2:[address] [facility] Transferrin Saturation 40 14 - 50 % 10/01/2024 2:[address] [facility] Blood Venous blood specimen / Unknown Venipuncture / Unknown 10/01/2024 12:28 PM EDT 10/01/2024 12:29 PM EDT [facility] LAB BLOOD ORDERABLES Final Result [facility] [address] [place] [address] * Vitamin A (Retinol), Serum or Plasma (10/01/2024 12:28 PM EDT) Vitamin A (Retinyl Palmitate) <0.02 0.00 - 0.10 mg/L 10/04/2024 3:16 PM EDT [facility] ([employer]) VITAMIN A,SER/BETH-INTE RPRETATION Normal 10/04/2024 3:16 PM EDT [facility] ([employer]) Vitamin A (Retinol) 0.51 0.30 - 1.20 mg/L 10/04/2024 3:16 PM EDT [facility] ([facility]) Fasting greater than or equal to 12 hours? 10/04/2024 3:16 PM EDT [facility] ([facility]) Blood Venous blood specimen / Unknown Venipuncture / Unknown 10/01/2024 12:28 PM EDT 10/01/2024 12:29 PM EDT Narrative [facility]) - 10/04/2024 3:16 PM EDT This test was developed and its performance characteristics determined by [facility]. It has not been cleared or approved by the US Food and Drug Administration. This test was performed in a CLIA certified laboratory and is intended for clinical purposes. Performed By: [facility] [address] [place] [address] Manager Requirements: Frederick Garcia MD, PhD CLIA Number: [id number] [facility] BLOOD ORDERABLES Final Result [facility]) [address] [id number] * Vitamin D 25 Hydroxy (10/01/2024 12:28 PM EDT) Vitamin D 25 Hydroxy 34.1 20.0 - 80.0 ng/mL 10/01/2024 2:[address] [facility] Blood Venous blood specimen / Unknown Venipuncture / Unknown 10/01/2024 12:28 PM EDT 10/01/2024 12:[address] [facility] - 10/01/2024 2:45 PM EDT Testing performed on [employer], standardized against NIST SRM 2972. When testing [...] Ivory [facility] LAB BLOOD ORDERABLES Final Result [facility] [address] [place] [address] * (ABNORMAL) CBC and Differential (10/01/2024 12:28 PM EDT) WBC Count 8.59 3.70 - 10.30 10*3/uL LAB HEMATOLOGY METHOD 10/01/2024 2:[address] [facility] RBC Count 5.18 3.90 - 5.20 10*6/uL LAB HEMATOLOGY METHOD 10/01/2024 2:[address] [facility] HGB 15.3 11.2 - 15.7 g/dL LAB HEMATOLOGY METHOD 10/01/2024 2:[address] [facility] HCT 46.4(H) 34.0 - 45.0 % LAB HEMATOLOGY METHOD 10/01/2024 2:[address] [facility] Platelet Count 261 155 - 369 10*3/uL LAB HEMATOLOGY METHOD 10/01/2024 2:[address] [facility] MCV 90 79 - 98 fL LAB HEMATOLOGY METHOD 10/01/2024 2:[address] [facility] MCH 29.5 26.0 - 32.0 pg LAB HEMATOLOGY METHOD 10/01/2024 2:[address] [facility] MCHC 33.0 30.7 - 35.5 g/dL LAB HEMATOLOGY METHOD 10/01/2024 2:[address] [facility] RDW 12.8 11.5 - 14.5 % LAB HEMATOLOGY METHOD 10/01/2024 2:[address] [facility] MPV 10.4 8.8 - 12.5 fL LAB HEMATOLOGY METHOD 10/01/2024 2:[address] [facility] nRBC 0.0 <=0.0 per 100 WBCs LAB HEMATOLOGY METHOD 10/01/2024 2:[address] [facility] Differential Type Automated LAB HEMATOLOGY METHOD 10/01/2024 2:[address] [facility] Neutrophils % 73 % LAB HEMATOLOGY METHOD 10/01/2024 2:[address] [facility] Lymphocytes % 17 % LAB HEMATOLOGY METHOD 10/01/2024 2:[address] [facility] Monocytes % 7 % LAB HEMATOLOGY METHOD 10/01/2024 2:[address] [facility] Eosinophils % 2 % LAB HEMATOLOGY METHOD 10/01/2024 2:[address] [facility] Basophils % 0 % LAB HEMATOLOGY METHOD 10/01/2024 2:[address] [facility] Immature Granulocytes % 1 % LAB HEMATOLOGY METHOD 10/01/2024 2:[address] [facility] Neutrophils Absolute 6.32(H) 1.60 - 6.10 10*3/uL LAB HEMATOLOGY METHOD 10/01/2024 2:[address] [facility] Lymphocytes Absolute 1.45 1.20 - 3.90 10*3/uL LAB HEMATOLOGY METHOD 10/01/2024 2:[address] [facility] Monocytes Absolute 0.56 0.30 - 0.90 10*3/uL LAB HEMATOLOGY METHOD 10/01/2024 2:[address] [facility] Eosinophils Absolute 0.17 0.00 - 0.50 10*3/uL LAB HEMATOLOGY METHOD 10/01/2024 2:[address] [facility] Basophils Absolute 0.03 0.00 - 0.10 10*3/uL LAB HEMATOLOGY METHOD 10/01/2024 2:[address] [facility] Immature Granulocytes Absolute 0.06 0.00 - 0.06 10*3/uL LAB HEMATOLOGY METHOD 10/01/2024 2:[address] [facility] Blood Venous blood specimen / Unknown Venipuncture / Unknown 10/01/2024 12:28 PM EDT 10/01/2024 12:[address] [facility] - 10/01/2024 2:22 PM EDT Therapeutic decision making should be based on absolute values, rather than percentages. [facility] BLOOD ORDERABLES Final Result [facility] [address] [place] [address] * (ABNORMAL) Vitamin E, Serum or Plasma (10/01/2024 12:28 PM EDT) Vitamin E (Alpha-Tocophe rol) 4.4(L) 5.5 - 18.0 mg/L 10/04/2024 3:16 PM EDT [facility]) Vitamin E (Gamma-Tocophe rol) 1.7 0.0 - 6.0 mg/L 10/04/2024 3:16 PM EDT [facility] ([facility]) Fasting greater than or equal to 12 hours? 10/04/2024 3:16 PM EDT [facility] ([facility]) Blood Venous blood specimen / Unknown Venipuncture / Unknown 10/01/2024 12:28 PM EDT 10/01/2024 12:29 PM EDT Narrative [facility] - 10/04/2024 3:16 PM EDT This test was developed and its performance characteristics determined by [facility]. It has not been cleared or approved by the US Food and Drug Administration. This test was performed in a CLIA certified laboratory and is intended for clinical purposes. Performed By: [facility] [address] [place] [address] Manager Requirements: Frederick Garcia MD, PhD CLIA Number: [id number] [facility] BLOOD ORDERABLES Final Result [facility]) [address] [place] [address] * Vitamin B1 (Thiamine), Whole Blood (10/01/2024 12:28 PM EDT) Pathologist [facility] VITAMIN B1, WHOLE BLOOD 162 70 - 180 nmol/L 10/04/2024 9:37 AM EDT [facility] ([facility]) Blood Venous blood specimen / Unknown Venipuncture / Unknown 10/01/2024 12:28 PM EDT 10/01/2024 12:29 PM EDT Narrative [facility]) - 10/04/2024 9:37 AM EDT INTERPRETIVE INFORMATION: Vitamin B1, Whole Blood This assay measures the concentration of thiamine diphosphate (TDP), the primary active form of vitamin B1. Approximately 90 percent of vitamin B1 present in whole blood is TDP. Thiamine and thiamine monophosphate, which comprise the remaining 10 percent, are not measured. This test was developed and its performance characteristics determined by [facility]. It has not been cleared or approved by the US Food and Drug Administration. This test was performed in a CLIA certified laboratory and is intended for clinical purposes. Performed By: [facility] [address] [place] [address] Manager Requirements: Frederick Garcia MD, PhD CLIA Number: [id number] [facility] BLOOD ORDERABLES Final Result [facility]) [address] [place] [address] * Phosphorus, Plasma (10/01/2024 12:28 PM EDT) Phosphorus, Plasma 3.8 2.5 - 4.5 mg/dL 10/01/2024 2:[address] [facility] Blood Venous blood specimen / Unknown Venipuncture / Unknown 10/01/2024 12:28 PM EDT 10/01/2024 12:29 PM EDT [facility] Renae [place] LAB BLOOD ORDERABLES Final Result Performing Organization Address City/[facility]/ZIP Co de Phone Number [facility] [address] [place] [address] * PTH Intact Total (10/01/2024 12:28 PM EDT) PTH Intact Total 68 9 - 77 pg/mL 10/01/2024 3:[address] [facility] Blood Venous blood specimen / Unknown Venipuncture / Unknown 10/01/2024 12:28 PM EDT 10/01/2024 12:[address] [facility] - 10/01/2024 3:33 PM EDT Assay performed by immunoassay at the [facility]. Performed on [employer] chemiluminescent immunoassay, tractable to the World Health Organization's first international standard for PTH from the NIBS, Code 79/500. Results obtained from different test methods or kits cannot be used interchangeably. us Ivory Frey [place] LAB [place] [address] * (ABNORMAL) Magnesium, Plasma (10/01/2024 12:28 PM EDT) Magnesium, Plasma 1.8(L) 1.9 - 2.4 mg/dL 10/01/2024 2:[address] [facility] Blood Venous blood specimen / Unknown Venipuncture / Unknown 10/01/2024 12:28 PM EDT 10/01/2024 12:29 PM EDT us Ivory [place] LAB BLOOD ORDERABLES Final Result Performing Organization Address City/[facility]/[place] [address] * Folate, Serum (10/01/2024 12:28 PM EDT) Folate, Serum 7.5 >4.6 ng/mL 10/01/2024 2:[address] [facility] Blood Venous blood specimen / Unknown Venipuncture / Unknown 10/01/2024 12:28 PM EDT 10/01/2024 12:29 PM EDT Result [facility] Ivory MONTERO LAB BLOOD ORDERABLES Final Result Performing Organization Address City/[facility]/ZIP Co de Phone Number [facility] [address] [place] [address] * (ABNORMAL) Ferritin, Serum (10/01/2024 12:28 PM EDT) Ferritin, Serum 173(H) 13 - 150 ng/mL 10/01/2024 3:[address] [facility] Blood Venous blood specimen / Unknown Venipuncture / Unknown 10/01/2024 12:28 PM EDT 10/01/2024 12:29 PM EDT [facility] LAB BLOOD ORDERABLES Final Result [facility] [address] [place] [address] * Vitamin B12, Serum (10/01/2024 12:28 PM EDT) Vitamin B12, Serum 500 210 - 1,033 pg/mL 10/01/2024 3:[address] [facility] Blood Venous blood specimen / Unknown Venipuncture / Unknown 10/01/2024 12:28 PM EDT 10/01/2024 12:29 PM EDT Iv[facility] MONTER[facility] LAB BLOOD ORDERABLES Final Result Performing Organization Address [facility]/ZIP Co de Phone Number [facility] [address] [place] [address] * (ABNORMAL) Comprehensive Metabolic Panel, Plasma (10/01/2024 12:28 PM EDT) Glucose, Plasma 84 74 - 99 mg/dL 10/01/2024 2:[address] [facility] BUN, Plasma 17 7 - 21 mg/dL 10/01/2024 2:[address] [facility] Creatinine, Plasma 0.75 0.60 - 1.10 mg/dL 10/01/2024 2:[address] [facility] BUN/Creatinine Ratio 23 10/01/2024 2:[address] [facility] Sodium, Plasma 143 136 - 145 mmol/L 10/01/2024 2:[address] [facility] Potassium, Plasma 4.9 3.6 - 4.9 mmol/L 10/01/2024 2:[address] [facility] Chloride, Plasma 110(H) 97 - 107 mmol/L 10/01/2024 2:[address] [facility] CO2, Plasma 22 22 - 29 mmol/L 10/01/2024 2:[address] [facility] Anion Gap 11 6 - 16 mmol/L 10/01/2024 2:[address] [facility] Total Calcium, Plasma 9.8 8.9 - 10.2 mg/dL 10/01/2024 2:[address] [facility] Total Protein 7.5 6.3 - 7.9 g/dL 10/01/2024 2:[address] [facility] Albumin, Plasma 4.3 3.5 - 5.2 g/dL 10/01/2024 2:[address] [facility] AST, Plasma 22 10 - 35 U/L 10/01/2024 2:[address] [facility] ALT, Plasma 26 10 - 35 U/L 10/01/2024 2:[address] [facility] Alkaline Phosphatase, Plasma 111(H) 35 - 104 U/L 10/01/2024 2:[address] [facility] Total Bilirubin, Plasma 0.9 0.2 - 1.1 mg/dL 10/01/2024 2:[address] [facility] eGFRcr 113.5 mL/min/1.7 3m*2 10/01/2024 2:[address] [facility] Comment:Reported eGFRcr in m L/min/1.73m2 is based the CKD-EPI 2020 equation that does not use a race coefficient. Blood Venous blood specimen / Unknown Venipuncture / Unknown 10/01/2024 12:28 PM EDT 10/01/2024 12:29 PM EDT [facility] LAB BLOOD ORDERABLES Final Result [facility] [address] [place] [address] * ED HIV 1/2 Antibody/Antigen Screen w/Reflex to HIV 1/2 Differentiation (08/02/2023 6:45 PM EDT) HIV 1 & 2 Antibody/Antigen Screen Non Reactive Non Reactive 08/02/2023 8:15 PM EDT [facility] Comment:Screening for HIV 1 & 2 antibodies, and P24 antigen is NONREACTIVE. No confirmatory testing is required. Blood Venous blood specimen / Unknown Venipuncture / Unknown 08/02/2023 6:45 PM EDT 08/02/2023 7:05 PM EDT Evelyn Dhillon MD LAB BLOOD ORDERABLES Final Resu lt Performing Organization Address City/[facility]/ZIP Co de Phone Number [facility] [address] [place] [address] * Hepatitis C Antibody - ED (08/02/2023 6:45 PM EDT) Hepatitis C Antibody Negative Negative 08/02/2023 8:12 PM EDT [facility] Blood Venous blood specimen / Unknown Venipuncture / Unknown 08/02/2023 6:45 PM EDT 08/02/2023 7:05 PM EDT Evelyn Dhillon MD LAB BLOOD ORDERABLES Final Resu lt Performing Organization Address [facility] de Phone Number [facility] [address] [place] [address] from Last 3 Months or Most Recently Relevant to Health Maintenance Additional Health Concerns Infection Onset Date Last Indicated MRSA Comment:09/03/2018 MDRT MRSA Patient needs MRSA protocol. 09/03/2018 03/24/[address] [place] [address] [facility] Advance Directives * Full Code (Latest Code [...] Patient has decision-making capacity? Yes Care Teams Preschool Assistant Teacher Relationship Specialty Start Date End Date Garry Guerrier MD [address] [place] [address] PCP - General Family Medicine 06/15/23 Odalys Velásquez APRN [address] [place] [address] Nurse Practitioner Internal Medicine 11/25/21 Susanne [place], RN [facility] Registered Nurse Cardiology 11/25/21 Jevon Cosme MD [address] [place] [address] Consulting Physician Cardiology 05/25/22 Jinny Sequeira MD [address] [place], [place] [id number] Resident PGY-3 General Surgery 07/27/23 Carolina Woodward MD [address] [place] [address] Consulting Physician Interventional Cardiology 12/12/23
--- OUTSIDE RECORDS SUMMARY | 2024-11-01 09:05 | XMS_ITS | Encounter Summary ---
Author Organization Healthcare Address [address] [place] [address] Care Team Providers Care Customer Services Supervisor Name Role Phone Odalys Velásquez Romie LIVESTOCK CARETAKER Unavailable [phone] Susanne Richmond RN Unavailable Unavailable Jevon Cosme MD Unavailable [phone] Garry Guerrier MD Primary Care Provider [phone] Jinny Sequeira MD Unavailable [phone] Carolina Woodward MD Unavailable [phone] Encounter Details Date Type Department Care Team (Latest Contact Info) Description 10/29/2024 Travel Social History Tobacco Use Types Packs/Day [...] any time in the past 12 m [facility], were you homeless or living in a correction (including now)? No 03/25/2024 AUDIT-C Answer Date [...] drink first t ab in the morning (EYE-CCNA) to steady your nerves or to get [...] Questionnaire-2 Score 1 03/2024 8:08 AM EDT Ruth [email or web address] * Little interest or pleasure in doing [...] Author Several days 10/29/2024 8:08 AM EDT [facility], Em [email or web address] * Trouble concentrating on things, such as reading the newspaper or watching television Answer Date of Assessment Author Several days 10/29/2024 8:08 AM EDT Ruth Wray [email or web address] * Moving or speaking so slowly that other people could have noticed? Or the opposite - being so fidgety or restless that you have been moving around a lot more than usual. Answer Date of Assessment Author Not at all 10/29/2024 8:08 AM EDT Ruth Wray [email or web address] * Thoughts that you would be better off or hurting yourself in some way Answer Date of Assessment Author Not at all 10/29/2024 8:08 AM EDT Ruth Wray [email or web address] documented as of this encounter Plan of Treatment Upcoming Encounters Date Type Department Care Team (Late st Contact Info) Description 01/07/2025 10:45 AM EST Office Visit [facility] General & Weight Loss Surgery [address] [place] [address] Augustine Yao MD [address] [place] [address] 04/21/2025 12:45 PM EST Appointment Cardiac Imaging [address] [place] [address] 04/21/2025 2:20 PM EST Office Visit [facility] Marne Fady [address] [facility] [place] [address] Carolina Woodward MD [address] [place] [address] documented as of this encounter Visit Diagnoses [...] documented as of this encounter Care Teams Customer Services Supervisor Relationship Specialty Start Date End Date Garry Guerrier MD [address] [place] [address] [address] [place] [address] PCP - General Family Medicine 06/15/23 Odalys Velásquez APRN [address] [place] [phone] Nurse Practitioner Internal Medicine 11/25/21 Susanne [place], RN [facility] Registered Nurse Cardiology 11/25/21 Jevon Cosme MD [address] [place] [phone] Consulting Physician Cardiology 05/25/22 Jinny Sequeira MD [address] [place] [address] Resident PGY-3 General Surgery 07/27/23 Carolina Woodward MD [address] [place] [phone] Consulting Physician Interventional Cardiology 12/12/23 documented as of this encounter
--- OUTSIDE RECORDS SUMMARY | 2024-11-01 09:05 | XMS_ITS | Encounter Summary ---
Author Organization [facility] Address [address] [place] [address] Care Team Providers Care Business Administration Instructor Name Role Phone Nuris Bustillo RN Unavailable Unavailable Odalys Velásquez GRADUATE ASSISTANT Unavailable [phone] Susanne Richmond RN Unavailable Unavailable Naveen Wynn MD Unavailable Jevon Cosme MD Unavailable [phone] Garry Guerrier MD Primary Care Provider [phone] Jinny Sequeira MD Unavailable [phone] Carolina Woodward MD Unavailable [phone] Reason for Visit * Reason Onset Date Comments Arrythmia 06/27/2023 Encounter Details Date Type Department Care Team (Late st Contact Info) Description 06/27/2023 Telephone [facility] [address] [place] [address] Dandy Cerrato MD [address] [place] [address] Arrythmia Social History Tobacco Use [...] drink first t ab in the morning (E[employer]AR[employer] WORK[employer]) to steady your nerves or to get [...] [facility] [address] [place] [address] Augustine Yao MD [address] [address] 04/21/2025 12:45 PM EST Appointment Cardiac Imaging [address] [place] [id number] 04/21/2025 2:20 PM EST Office Visit [facility] [address] [place] [id number] Carolina Woodward MD [address] [place] [id number] documented as of this encounter Visit Diagnoses [...] documented as of this encounter Care Teams Business Administration Instructor Relationship Specialty Start Date End Date Garry Guerrier MD [address] [place] [address] PCP - General Family Medicine 06/15/23 Nuris Bustillo, RN [facility] Registered Nurse 11/25/21 03/24/24 Odalys Velásquez APRN [address] [place] [phone] Nurse Practitioner Internal Medicine 11/25/21 Susanne Richmond RN [facility] Registered Nurse Cardiology 11/25/21 Naveen Wynn MD [address] [place] [phone] Consulting Physician Pediatric Cardiology 01/05/22 Jevon Cosme MD [address] [place] [phone] Consulting Physician Cardiology 05/25/22 Jinny Sequeira MD [address] [place] [address] Resident PGY-3 General Surgery 07/27/23 Carolina Woodward MD [address] [place] [phone] Consulting Physician Interventional Cardiology 12/12/23 documented as of this encounter
--- OUTSIDE RECORDS SUMMARY | 2024-11-01 09:05 | XMS_ITS | Encounter Summary ---
Author Organization [facility] Address [address] [place] [address] Care Team Providers Care Reducing Salon Attendant Name Role Phone Stephen Stoddard MD Primary Care Provider [phone] Nuris Bustillo RN Unavailable Unavailable Odalys Velásquez APRN Unavailable [phone] Susanne Richmond RN Unavailable Unavailable Naveen Wynn MD Unavailable Cheyanne Whitmore DO Primary Care Provider [phone] Jevon Cosme MD Unavailable [phone] Garry Guerrier MD Primary Care Provider [phone] Jinny Sequeira MD Unavailable [phone] Carolina Woodward MD Unavailable [phone] Reason for Visit * Reason Comments Med Refill Encounter Details Date Type Department Care Team (Late st Contact Info) Description 03/07/2022 Refill [facility] [address] [place] [address] Dandy Cerrato MD [address] [place] [address] Atrial tachycardia (CMS/HCC) (Primary Dx) [...] [facility] [address] [place] [address] Augustine Yao MD [address] [facility] [address] [place] [address] 04/21/2025 12:45 PM EST Appointment Cardiac Imaging [address] [place] [address] 04/21/2025 2:20 PM EST Office Visit [facility] [place] [address] [place] [address] Carolina Woodward MD [address] [place] [phone] documented as of this encounter Visit Diagnoses [...] documented as of this encounter Care Teams Reducing Salon Attendant Relationship Specialty Start Date End Date Stephen Stoddard MD [address] [place] [address] PCP - General 07/10/20 03/29/22 Cheyanne Whitmore DO [address] [place], [place] [id number] PCP - General 03/30/22 06/14/23 Garry Guerrier MD [address] [place] [address] [address] [address] PCP - General Family Medicine 06/15/23 Nuris Bustillo, RN [facility] Registered Nurse 11/25/21 03/24/24 Odalys Velásquez, CERAMICS MACHINE OPERATOR [address] [place] [address] Nurse Practitioner Internal Medicine 11/25/21 Susanne Richmond RN [facility] Registered Nurse Cardiology 11/25/21 Naveen Wynn MD [address] [place] [address] Consulting Physician Pediatric Cardiology 01/05/22 Jevon Cosme MD [address] [place] [address] Consulting Physician Cardiology 05/25/22 Jinny Sequeira MD [address] [place] [address] Resident PGY-3 General Surgery 07/27/23 Carolina Woodward MD [address] [place] [address] Consulting Physician Interventional Cardiology 12/12/23 documented as of this encounter
--- NOTE | 2024-11-01 09:15 | XR_ITS ---
FINAL REPORT TECHNIQUE: Bone densitometry calculations of the lumbar spine and left hip were obtained. CLINICAL HISTORY: routine screening patient on depo shot for several years COMPARISON: None FINDINGS: Using L1-4, the bone mineral density of the spine is 1.105 g/cm2, corresponding to T-score of 0.5 and a Z score of 0.6. This is within the range of normal limits. Using the right hip, the bone mineral density of the femoral neck is 0.717 g/cm2, corresponding to a T-score of -1.2 and a Z-score of -1.2. This is within the range of osteopenia. FRAX 10 year fracture risk is 0.1% for a hip fracture and 1.9% for a major osteoporotic fracture. NOTE: T-score: Standard deviation compared with peak bone mass of young adult mean. *Following the recommendations of the International Society of Bone densitometry, classification of hip BMD is based on the lower of two T-scores; total hip or femoral neck. IMPRESSION: 1. Bone mineral density of the lumbar spine within the range of normal limits. 2. Bone mineral density of the left femoral neck within the range of osteopenia. Reviewed, Interpreted and Dictated by Namita Anna MD Transcribed by Elena Clark Authenticated and [facility]
== END 2024-11-01 23:59 | disposition home or self-care (01) ==
LOC: RAD 08:59
PROVIDERS: PCP Nurse Practitioner; Visit Provider Obstetrics & Gynecology
DX: M85.852 Other specified disorders of bone density and structure, left thigh (principal); Z13.820 Encounter for screening for osteoporosis; Z79.899 Other long term (current) drug therapy
CPT/HCPCS: 77080

== ENCOUNTER 2025-02-09 09:47 | Outpatient (CLI) | payer OTHER, SELFPAY ==
[2025-02-09 21:30] LABS: Coronavirus 19, PCR Not Detected (NotDetected); Influenza A, PCR Not Detected (NotDetected); Influenza B, PCR Not Detected (NotDetected)
== END 2025-02-09 23:59 | disposition home or self-care (01) ==
LOC: LAB.DROPOF 02-11 09:48
PROVIDERS: PCP Nurse Practitioner; Visit Provider Student in an Organized Health Care Education/Training Program
DX: J02.9 Acute pharyngitis, unspecified (principal); J32.9 Chronic sinusitis, unspecified; J06.9 Acute upper respiratory infection, unspecified
CPT/HCPCS: 87631